=== PATIENT | female | born 1950 | race Caucasian/White ===

== ENCOUNTER 2018-02-09 20:36 | Inpatient (IN) | payer MEDICARE, OTHER ==
[2018-02-09] MEDS ORDERED: ASPIRIN 81 MG PO STA (21:15)
[2018-02-09] MEDS ORDERED: NITROGLYCERIN OINT 1 INCH/GM PACKET TOPICAL STA (21:15)
--- NOTE | 2018-02-09 21:22 | ED ---
Chest Pain HPI - General Chief Complaint: Chest Pain Stated Complaint: jc Time Seen by Provider: 02/09/18 21:07 Source: patient, EMS Mode of arrival: EMS Limitations: no limitations - History of Present Illness Initial Comments: This 67-year-old white female presents with a complaint of some midsternal chest pressure, shortness breath, and palpitations. She states that she initially started with the palpitations about one week ago. They became more severe 3 days ago. The chest pain and dyspnea came on today. She states that she was diaphoretic at one point. The palpitations are resolved currently. The shortness of breath is worse with any exertion. She denies any leg pain or swelling. She denies any history DVT or PE. She does have a cardiac history with previous CABG 20 years ago. Her last stress test was at least 6 years ago. She is not aware of ever having heart catheterization anytime recently. She has had a slight cough but no fevers. She denies any other complaints or modifying factors. - Related Data Home Medications Medication Instructions Recorded Confirmed ALPRAZolam [Xanax] 0.5 mg PO HS PRN 02/09/18 02/09/18 Atenolol [Tenormin] 25 mg PO DAILY 02/09/18 02/09/18 Atorvastatin [Lipitor] 20 mg PO DAILY 02/09/18 02/09/18 Cranberry Fruit Concentrate 450 mg PO DAILY 02/09/18 02/09/18 [Cranberry] Ezetimibe [Zetia] 10 mg PO DAILY 02/09/18 02/09/18 FLUoxetine HCL [PROzac] 20 mg PO DAILY 02/09/18 02/09/18 Multivitamins, Thera [Multivitamin 1 tab PO DAILY 02/09/18 02/09/18 (formulary)] Olmesartan/Hydrochlorothiazide 1 tab PO DAILY 02/09/18 02/09/18 [Benicar Hct 40-12.5 mg Tablet] Zolpidem [Ambien] 10 mg PO HS PRN 02/09/18 02/09/18 Allergies Allergy/AdvReac Type Severity Reaction Status Date / Time No Known Allergies Allergy Verified 02/09/18 21:59 Review of Systems ROS Statement: Those systems with pertinent positive or pertinent negative responses have been documented in the HPI. ROS Other: All systems not noted in ROS Statement are negative. Past Medical History Past Medical History: No Reported History History of Any Multi-Drug Resistant Organisms: None Reported Past Surgical History: No Surgical Hx Reported Past Psychological History: No Psychological Hx Reported Smoking Status: Never smoker Past Alcohol Use History: None Reported Past Drug Use History: None Reported General Exam - General Exam Comments Initial Comments: GENERAL: The patient is well nourished and well hydrated. VITAL SIGNS: Heart rate, blood pressure, respiratory rate reviewed as recorded in nurse's notes. EYES: Pupils are round and reactive. Extraocular movements are intact. No conjunctival / lid redness or swelling. ENT: No external evidence of injury, swelling, or ecchymosis. Airway is patent. Throat is clear. NECK: Nontender. No swelling or evidence of injury. No subcutaneous emphysema. Trachea is midline. No thyroid mass. HEART: Regular rate and rhythm. Good peripheral pulses. LUNGS/CHEST: Breath sounds clear and equal bilaterally. No rales, rhonchi, or wheezes. No ecchymosis, subcutaneous emphysema, or tenderness. ABDOMEN: Abdomen soft without tenderness. No palpable masses or organomegaly. No peritoneal signs. No abdominal wall swelling or ecchymosis. EXTREMITIES: No extremity tenderness. Normal muscle tone and function. No thoracolumbar tenderness. NEUROLOGIC: Sensation is grossly intact. Cranial nerve exam reveals face is symmetrical, tongue is midline, speech is clear. SKIN: No abrasions or ecchymosis is noted. No induration or masses noted. PSYCHIATRIC: Alert and oriented. Appropriate behavior and judgment. Limitations: no limitations Course Vital Signs 02/09/18 21:00 Temperature 97.8 F Pulse Rate 74 Respiratory 18 Rate Blood Pressure 149/66 O2 Sat by Pulse 92 L Oximetry Chest Pain MDM - MDM The patient was seen and examined. All diagnostics were reviewed. An IV is started and she is placed on a heart monitor. No ectopy is identified. The EKG shows a normal sinus rhythm at a rate of 69. There is some flattened T waves but no ST elevation. The MD intervals 1:30, QRS duration is 88, and the QTc interval is 317. The patient does receive aspirin as well as Nitropaste. The chest x-ray shows evidence of atelectasis of the left upper lobe. A computed tomography scan was therefore done and this does show a 4 cm 4 cm mass in the left lung with suspicion of being a primary malignancy. The atelectasis is noted as well. There is no evidence of pulmonary embolism. The laboratories unremarkable. The patient was informed of these findings and all questions were answered. She is somewhat anxious afterwards and requests something for her anxiety. She is given 1 mg of Ativan IV. The case is discussed with Dr. Santillan and he is agreeable with admission with Dr. Pressley to consult. Disposition Clinical Impression: Chest pain, Dyspnea, Hypoxia, Palpitations, Hypertension, Pulmonary mass, Atelectasis of left lung Disposition: ADMITTED IP TO THIS HOSP Condition: Fair Is patient prescribed a controlled substance at d/c from ED?: No Time of Disposition: 00:11 Decision Date: 02/10/18 Decision Time: 00:11
[2018-02-09 21:35] LABS: Basophils % (A) 0 %; Eosinophils # (A) 0.5 k/uL (0-0.7); Eosinophils % (A) 5 %; HCT 42.4 % (34.0-46.0); HGB 13.9 gm/dL (11.4-16.0); Lymphocytes % (A) 20 %; MCH 29.2 pg (25.0-35.0); MCHC 32.7 g/dL (31.0-37.0); MCV 89.3 fL (80.0-100.0); Mean Platelet Volume 7.9; Monocytes # (A) 0.5 k/uL (0-1.0); Monocytes % (A) 6 %; Neutrophils # (A) 6.6 k/uL (1.3-7.7); Neutrophils % (A) 67 %; Platelet Count 222 k/uL (150-450); RBC 4.74 m/uL (3.80-5.40); RDW 13.6 % (11.5-15.5); WBC 9.8 k/uL (3.8-10.6)
[2018-02-09 21:44] LABS: ALT 44 U/L (9-52); AST 33 U/L (14-36); Albumin 4.1 g/dL (3.5-5.0); Alkaline Phosphatase 119 U/L (38-126); Anion Gap 13 mmol/L; Blood Urea Nitrogen 11 mg/dL (7-17); Calcium 9.2 mg/dL (8.4-10.2); Carbon Dioxide 23 mmol/L (22-30); Chloride 105 mmol/L (98-107); Glucose 104 mg/dL (74-99); Sodium 141 mmol/L (137-145); Total Bilirubin 0.3 mg/dL (0.2-1.3); Total Protein 7.2 g/dL (6.3-8.2)
[2018-02-09 21:50] LABS: D-Dimer 0.56 mg/L FEU (<0.60); INR 1.1 (<1.2); Prothrombin Time 10.7 sec (9.0-12.0)
[2018-02-09 21:53] LABS: Creatine Kinase 74 U/L (30-135)
--- NOTE | 2018-02-09 21:55 | XR ---
EXAMINATION TYPE: XR chest 2V DATE OF EXAM: 02/09/2018 COMPARISON: 07/12/2013 HISTORY: Chest pain TECHNIQUE: Frontal and lateral views of the chest are obtained. FINDINGS: Heart and mediastinum are shifted to the left side. There are sternal wires. The lungs fie lds appear clear of airspace consolidation. There is slight elevation of the left diaphragm. IMPRESSION: There is significant volume loss in the left hemithorax that is a change compared to old exam. This is consistent with significant atelectasis. This could be complete atelectasis of the lef t upper lobe. Follow-up is recommended.
[2018-02-09 22:06] LABS: Creatine Kinase MB 0.6 ng/mL (0.0-2.4); Troponin I <0.012 ng/mL (0.000-0.034)
[2018-02-09] MEDS ORDERED: RX INFO: IV CONTRAST WAS GIVEN 1 EACH MISC MISCELLANE PRN (22:23)
--- NOTE | 2018-02-09 23:22 | CT ---
EXAMINATION TYPE: CT angio chest DATE OF EXAM: 02/09/2018 10:51 PM COMPARISON: NONE HISTORY: Chest pain and SOB CT DLP: 434.9 mGycm Automated exposure control for dose reduction was used. CONTRAST: CTA scan of the thorax is performed with IV Contrast, patient injected with 75 mL of Isovue 370, pulm onary embolism protocol. There are 3-D post processed images.. FINDINGS: Heart and mediastinum are shifted to the left side. There is complete atelectasis of the left upper l obe. There is mass at the left pulmonary hilum with apparent complete occlusion of the distal left ma instem bronchus. There is a 4 x 4 cm masslike area of density at the left pulmonary hilum with encase ment of the left pulmonary artery. I see no filling defects in the pulmonary arteries. There are para tracheal lymph nodes and measure up to 9 mm. There is no pericardial effusion. There is no pleural ef fusion. I see no bony destructive process. IMPRESSION: NO EVIDENCE OF PULMONARY EMBOLISM. COMPLETE ATELECTASIS OF THE LEFT UPPER LOBE WITH MASS AT THE LEFT PULMONARY HILUM SUGGESTIVE OF PRIMA RY MALIGNANCY. OCCLUSION OF THE LEFT MAINSTEM BRONCHUS.
[2018-02-10] MEDS ORDERED: LORazepam 2 MG/ML INJ IV STA (00:05)
[2018-02-10] MEDS ORDERED: IPRATROPIUM-ALBUTEROL 3 ML NEB INHALATION STA (00:12)
[2018-02-10] MEDS ORDERED: ONDANSETRON 4 MG/2 ML VIAL IVP PRN (00:13)
[2018-02-10] MEDS ORDERED: NALOXONE 0.4 MG/ML 1 ML VIAL IV PRN (00:13)
[2018-02-10] MEDS ORDERED: traMADol 50 MG TAB PO PRN (00:13)
[2018-02-10] MEDS ORDERED: ALPRAZolam 0.5 MG TAB PO PRN (00:18)
[2018-02-10 01:26] VITALS: BMI 29.9
[2018-02-10] MEDS: ZOLPIDEM 10 MG TAB PO PRN (01:49)
[2018-02-10] MEDS: IPRATROPIUM-ALBUTEROL 3 ML NEB INHALATION SCH ×4 (07:15→19:56)
[2018-02-10 08:15] LABS: Appearance,Urine Cloudy (Clear); Bacteria,Urine Rare /hpf; Bilirubin,Urine Negative (Negative); Blood,Urine Negative (Negative); Color,Urine Yellow; Glucose,Urine (UA) Negative (Negative); Ketones,Urine Negative (Negative); Leukocyte Esterase,Urine Large (Negative); Nitrite,Urine Negative (Negative); PH, Urine 6.5 (5.0-8.0); Protein,Urine Trace (Negative); RBC,Urine 1 /hpf (0-5); Squamous Epithelial Cell,Urine 1 /hpf (0-4); Urobilinogen,Urine <2.0 mg/dL (<2.0); WBC,Urine 51 /hpf (0-5)
[2018-02-10] MEDS ORDERED: NON-FORMULARY DRUG (Cranberry Fruit Concentrate [Cranberry] 450 MG) PO SCH (09:00)
[2018-02-10] MEDS ORDERED: PANTOPRAZOLE 40 MG/10 ML VIAL IV SCH (09:00)
[2018-02-10] MEDS ORDERED: ASPIRIN 325 MG TAB PO SCH (09:00)
[2018-02-10] MEDS ORDERED: ENOXAPARIN 40 MG/0.4 ML SYRINGE SQ SCH (09:00)
[2018-02-10] MEDS: ACETAMINOPHEN TAB 325 MG TAB PO PRN (09:11)
[2018-02-10] MEDS: LOSARTAN 50 MG TAB PO SCH ×2 (09:28→09:31)
[2018-02-10] MEDS: NITROGLYCERIN OINT 1 INCH/GM PACKET TOPICAL SCH ×2 (09:30→13:04)
[2018-02-10] MEDS: ATORVASTATIN 20 MG TAB PO SCH (09:31)
[2018-02-10] MEDS: MULTIVITAMINS, THERA 1 EACH TAB PO SCH (09:31)
[2018-02-10] MEDS: ATENOLOL 25 MG TAB PO SCH (09:31)
[2018-02-10] MEDS: FLUoxetine HCL 20 MG CAP PO SCH (09:31)
[2018-02-10] MEDS: LOSARTAN-HCTZ 50-12.5 MG 1 EACH TAB PO SCH (09:33)
[2018-02-10 09:53] LABS: Creatine Kinase MB 0.6 ng/mL (0.0-2.4); Troponin I 0.015 ng/mL (0.000-0.034)
[2018-02-10 10:17] LABS: Specific Gravity,Urine >1.050 (1.001-1.035)
--- NOTE | 2018-02-10 10:50 | P.CNPUL ---
History of Present Illness Consult date: 02/10/18 Reason for consult: dyspnea, chest pain, COPD, hypoxemia, lung mass, abnormal CXR/CT Chief complaint: Shortness of breath and chest discomfort History of present illness: Pulmonary consult dated 02/10/2018 Very pleasant 67-year-old ex-smoker presents with shortness of breath and chest discomfort. She had a chest x-ray which suggested a mass in the left chest and a CAT scan confirmed that. I was consulted for possible bronchoscopy and diagnostic procedure. The patient was a previous smoker smoked about 20 years at less than a pack a day. Quit many years ago. The patient came with complaints of shortness of breath on exertion and chest discomfort particularly left sided. The patient does have a history of a previous bypass grafting some 20 years ago. Her last stress test was 6 years ago. She had no fever or chills. Slight cough. No production of phlegm. Not coughing up any blood. No nausea vomiting or diarrhea. This has been going on for at least a week or so and has been worse over the last 3 days. The patient has a history of hypertension insomnia and anxiety hyperlipidemia and depression. Review of Systems A 12 point review of system is positive for nonproductive cough shortness of breath and left-sided chest discomfort. This been going on for about a week or so and last 3 days have been much worse. Past Medical History Past Medical History: No Reported History, Chest Pain / Angina, Hyperlipidemia, Hypertension History of Any Multi-Drug Resistant Organisms: None Reported Past Surgical History: Cholecystectomy, Coronary Bypass/CABG Additional Past Surgical History / Comment(s): triple bypass-1997 dr carrington Past Anesthesia/Blood Transfusion Reactions: No Reported Reaction Past Psychological History: No Psychological Hx Reported Smoking Status: Never smoker Past Alcohol Use History: None Reported Past Drug Use History: None Reported Medications and Allergies Home Medications Medication Instructions Recorded Confirmed Type ALPRAZolam [Xanax] 0.5 mg PO HS PRN 02/09/18 02/09/18 History Atenolol [Tenormin] 25 mg PO DAILY 02/09/18 02/09/18 History Atorvastatin [Lipitor] 20 mg PO DAILY 02/09/18 02/09/18 History Cranberry Fruit Concentrate 450 mg PO DAILY 02/09/18 02/09/18 History [Cranberry] Ezetimibe [Zetia] 10 mg PO DAILY 02/09/18 02/09/18 History FLUoxetine HCL [PROzac] 20 mg PO DAILY 02/09/18 02/09/18 History Multivitamins, Thera [Multivitamin 1 tab PO DAILY 02/09/18 02/09/18 History (formulary)] Olmesartan/Hydrochlorothiazide 1 tab PO DAILY 02/09/18 02/09/18 History [Benicar Hct 40-12.5 mg Tablet] Zolpidem [Ambien] 10 mg PO HS PRN 02/09/18 02/09/18 History Allergies Allergy/AdvReac Type Severity Reaction Status Date / Time No Known Allergies Allergy Verified 02/09/18 21:59 Physical Exam Osteopathic Statement: *. No significant issues noted on an osteopathic structural exam other than those noted in the History and Physical/Consult. Vitals: Vital Signs Temp Pulse Pulse Resp BP BP Pulse Ox 02/10/18 07:30 81 02/10/18 07:15 81 16 02/10/18 06:24 98 F 78 20 103/83 93 L 02/10/18 00:41 60 16 142/60 94 L 02/10/18 00:34 73 02/10/18 00:32 97.9 F 74 18 144/71 91 L 02/10/18 00:23 68 02/09/18 23:12 64 17 169/64 95 02/09/18 21:00 97.8 F 74 18 149/66 92 L Intake and Output 02/09/18 02/10/18 02/10/18 22:59 06:59 14:59 Other: Voiding Method Toilet # Voids 1 Weight 81.647 kg 81.647 kg No acute distress, oriented 3. HEENT examination is grossly unremarkable. Mucous membranes are moist. No oral lesions. Neck supple. Full range of motion. No adenopathy thyromegaly or neck vein distention. Cardiovascular examination reveals regular rhythm rate. S1-S2 normal. No S3 or S4. No discernible murmur noted. Lungs reveal diminished breath sounds in the left chest. There is some central wheezing particularly on the left side of the chest to the left of midline. A few scattered rhonchi are noted. No crackles. Abdomen soft bowel sounds are heard. No masses or tenderness. Extremities are intact. No cyanosis clubbing or edema. Skin is without rash or lesion. Neurologic examination is brief but nonfocal. Results - Laboratory Findings CBC and BMP: 02/09/18 21:24 02/09/18 21:24 PT/INR, D-dimer PT 10.7 sec (9.0-12.0) 02/09/18 21:24 INR 1.1 (<1.2) 02/09/18 21:24 D-Dimer 0.56 mg/L FEU (<0.60) 02/09/18 21:24 Abnormal lab findings: Abnormal Labs 02/09/18 02/10/18 21:24 04:25 Glucose 104 H Urine Appearance Cloudy H Ur Specific [place] >1.050 H Urine Protein Trace H Ur Leukocyte Esterase Large H Urine WBC 51 H Urine Bacteria Rare H - Diagnostic Findings Chest x-ray: image reviewed CT scan - chest: image reviewed (Chest x-ray labs and medications are all reviewed.) Assessment and Plan Assessment: Assessment Shortness of breath and chest pain, likely related to the mass in the patient's left chest. Chest x-ray and CT are both abnormal and CT suggests a significant cut off sign in the distal left mainstem. I suspect there may be endobronchial tumor there which would be amenable to bronchoscopy and biopsy. Possible COPD Previous history of bypass grafting many years back History of hypertension History of hyperlipidemia Insomnia Anxiety/depression Previous history of tobacco use Plan: Plan dated 02/10/2018 The patient's medications labs and x-rays are reviewed. The patient be scheduled for bronchoscopy airway examination therapy lavage and BAL on . I suspect though be endobronchial tumor on bronchoscopy. A biopsy should be reasonably make at that time. Hopefully we'll get a diagnosis of that time as well. Additional recommendations and suggestions are forthcoming. Prognosis is poor. Time with Patient: Greater than 30
[2018-02-10] MEDS: cefTRIAXone IN SWFI 1,000 MG/10 ML SYRINGE IVP SCH (11:44)
[2018-02-10] MEDS: EZETIMIBE 10 MG TAB PO SCH (11:44)
--- NOTE | 2018-02-10 11:55 | P.HPIM ---
History of Present Illness H&P Date: 02/10/18 Chief Complaint: Worsening shortness of breath with lung mass This is a 67-year-old female with a known past medical history of coronary disease with previous CABG 20 years ago, hypertension, hyperlipidemia anxiety and depression. Patient presented to the hospital with complaints of chest pain shortness of breath and heart palpitations for the past 3 days. Prior to that over the last couple months patient had noticed to be short of breath with activity she also had a couple episodes of hemoptysis that now resolved. Yesterday patient's shortness of breath became very severe she thought she was going to pass out and she reports having severe heart palpitations. EMS was called and she was brought into the emergency room for further evaluation and treatment. EKG had shown normal sinus rhythm with nonspecific ST and T-wave changes. Chest x-ray shows significant volume loss in the left hemithorax they change compared to old exam. Then a computed tomography scan of the chest was ordered. PE was ruled out. CAT scan showed complete atelectasis of the left upper lobe with mass at the left pulmonary: Suggestive of a primary malignancy. Occlusion of the left mainstem bronchus. Pulmonary service has been consulted. They're planning to proceed with a bronchoscopy and biopsy on . Patient denies any fever chills or sweats. Denies any nausea or vomiting. Denies any bowel movement changes. She has been having some burning with urination urinalysis was checked and found have evidence of a UTI she's been started on Rocephin. Patient does report having a history of smoking she quit smoking about 20 years ago and reports that she smoked less than a pack a day. Review of Systems Please refer to HPI otherwise unremarkable Past Medical History Past Medical History: No Reported History, Chest Pain / Angina, Hyperlipidemia, Hypertension History of Any Multi-Drug Resistant Organisms: None Reported Past Surgical History: Cholecystectomy, Coronary Bypass/CABG Additional Past Surgical History / Comment(s): triple bypass-1997 dr carrington Past Anesthesia/Blood Transfusion Reactions: No Reported Reaction Past Psychological History: No Psychological Hx Reported Smoking Status: Never smoker Past Alcohol Use History: None Reported Past Drug Use History: None Reported Medications and Allergies Home Medications Medication Instructions Recorded Confirmed Type ALPRAZolam [Xanax] 0.5 mg PO HS PRN 02/09/18 02/09/18 History Atenolol [Tenormin] 25 mg PO DAILY 02/09/18 02/09/18 History Atorvastatin [Lipitor] 20 mg PO DAILY 02/09/18 02/09/18 History Cranberry Fruit Concentrate 450 mg PO DAILY 02/09/18 02/09/18 History [Cranberry] Ezetimibe [Zetia] 10 mg PO DAILY 02/09/18 02/09/18 History FLUoxetine HCL [PROzac] 20 mg PO DAILY 02/09/18 02/09/18 History Multivitamins, Thera [Multivitamin 1 tab PO DAILY 02/09/18 02/09/18 History (formulary)] Olmesartan/Hydrochlorothiazide 1 tab PO DAILY 02/09/18 02/09/18 History [Benicar Hct 40-12.5 mg Tablet] Zolpidem [Ambien] 10 mg PO HS PRN 02/09/18 02/09/18 History Allergies Allergy/AdvReac Type Severity Reaction Status Date / Time No Known Allergies Allergy Verified 02/09/18 21:59 Physical Exam Vitals: Vital Signs Temp Pulse Pulse Resp BP BP Pulse Ox 02/10/18 11:13 78 16 02/10/18 11:03 76 16 93 L 02/10/18 07:30 81 02/10/18 07:15 81 16 02/10/18 06:24 98 F 78 20 103/83 93 L 02/10/18 00:41 60 16 142/60 94 L 02/10/18 00:34 73 02/10/18 00:32 97.9 F 74 18 144/71 91 L 02/10/18 00:23 68 02/09/18 23:12 64 17 169/64 95 02/09/18 21:00 97.8 F 74 18 149/66 92 L Intake and Output 02/09/18 02/10/18 02/10/18 22:59 06:59 14:59 Other: Voiding Method Toilet Toilet # Voids 1 Weight 81.647 kg 81.647 kg Head normocephalic Neck supple Lungs diminished on the left with audible expiratory wheeze when talking Heart regular rate and rhythm S1-S2, no rub or gallop Abdomen is soft nontender nondistended positive bowel sounds no hepatosplenomegaly Extremities no edema Neuro alert and orientated to 3 Results CBC & Chem 7: 02/09/18 21:24 02/09/18 21:24 Labs: Abnormal Lab Results - Last 24 Hours (Table) 02/09/18 02/10/18 Range/Units 21:24 04:25 Glucose 104 H (74-99) mg/dL Urine Appearance Cloudy H (Clear) Ur Specific [place] >1.050 H (1.001-1.035) Urine Protein Trace H (Negative) Ur Leukocyte Esterase Large H (Negative) Urine WBC 51 H (0-5) /hpf Urine Bacteria Rare H (None) /hpf Microbiology - Last 24 Hours (Table) 02/10/18 04:25 Urine Culture - Preliminary Urine,Voided Thrombosis Risk Factor Assmnt - Choose All That Apply Any of the Below Risk Factors Present?: Yes Each Risk Factor Represents 2 Points: Age 61-74 years Thrombosis Risk Factor Assessment Total Risk Factor Score: 2 Thrombosis Risk Factor Assessment Level: Low Risk Assessment and Plan Assessment: 1. Shortness of breath with chest pain likely related to the mass in the patient's left chest. Computed tomography scan of the chest, no evidence of PE but complete atelectasis of the left upper lobe with mass at the left pulmonary home suggestive of a primary malignancy. Occlusion of the left mainstem bronchus. Patient seen by pulmonary service to planning on bronchoscopy with biopsy on . Troponins negative 2 2. Previous history of tobacco use several years ago 3. History of coronary artery disease with previous narrative bypass grafting 20 years ago 4. Essential hypertension: Blood pressure stable resume home medications 5. Hyperlipidemia 6. Generalized anxiety disorder and depression 7. UTI: Patient started on Rocephin 1 g daily. Awaiting urine culture GI prophylaxis Protonix and DVT prophylaxis Lovenox Time with Patient: Greater than 30 (Greater than 60% of the total time spent in counseling and coordination of care.I performed an examination of the patient and discussed their management with the physician Ios Architect. I have reviewed the Physician Ios Architect's notes and agree with the documented findings and plan of care)
[2018-02-10] MEDS: ALPRAZolam 0.5 MG TAB PO SCH ×2 (13:39→22:38)
[2018-02-10 14:50] LABS: Creatine Kinase 74 U/L (30-135)
[2018-02-10 15:03] LABS: Creatine Kinase MB 0.7 ng/mL (0.0-2.4); Troponin I <0.012 ng/mL (0.000-0.034)
[2018-02-10 20:57] LABS: Creatine Kinase 79 U/L (30-135)
[2018-02-10 21:08] LABS: Creatine Kinase MB 0.6 ng/mL (0.0-2.4); Troponin I <0.012 ng/mL (0.000-0.034)
[2018-02-10] MEDS: MELATONIN 5 MG TABLET PO SCH (22:37)
[2018-02-11] MEDS: ZOLPIDEM 10 MG TAB PO PRN ×2 (02:31→23:24)
[2018-02-11] MEDS: IPRATROPIUM-ALBUTEROL 3 ML NEB INHALATION SCH ×4 (07:25→19:26)
[2018-02-11 08:03] LABS: Basophils # (A) 0.1 k/uL (0-0.2); Basophils % (A) 1 %; Eosinophils # (A) 0.4 k/uL (0-0.7); Eosinophils % (A) 4 %; HCT 40.2 % (34.0-46.0); HGB 12.9 gm/dL (11.4-16.0); Lymphocytes # (A) 2.2 k/uL (1.0-4.8); Lymphocytes % (A) 24 %; MCH 29.1 pg (25.0-35.0); MCV 90.8 fL (80.0-100.0); Mean Platelet Volume 8.2; Monocytes # (A) 0.6 k/uL (0-1.0); Monocytes % (A) 7 %; Neutrophils # (A) 5.9 k/uL (1.3-7.7); Neutrophils % (A) 64 %; Platelet Count 221 k/uL (150-450); RBC 4.43 m/uL (3.80-5.40); RDW 13.6 % (11.5-15.5); WBC 9.3 k/uL (3.8-10.6)
[2018-02-11 08:10] LABS: ALT 37 U/L (9-52); AST 28 U/L (14-36); Albumin 3.7 g/dL (3.5-5.0); Alkaline Phosphatase 99 U/L (38-126); Anion Gap 14 mmol/L; Blood Urea Nitrogen 12 mg/dL (7-17); Carbon Dioxide 24 mmol/L (22-30); Chloride 103 mmol/L (98-107); Glucose 97 mg/dL (74-99); Potassium 4.1 mmol/L (3.5-5.1); Sodium 141 mmol/L (137-145); Total Bilirubin 0.5 mg/dL (0.2-1.3); Total Protein 6.7 g/dL (6.3-8.2)
[2018-02-11] MEDS: ALPRAZolam 0.5 MG TAB PO SCH ×3 (08:19→17:24)
[2018-02-11] MEDS: EZETIMIBE 10 MG TAB PO SCH (08:21)
[2018-02-11] MEDS: LOSARTAN 50 MG TAB PO SCH (08:21)
[2018-02-11] MEDS: PANTOPRAZOLE 40 MG TABLET PO SCH (08:22)
[2018-02-11] MEDS: LOSARTAN-HCTZ 50-12.5 MG 1 EACH TAB PO SCH (08:22)
[2018-02-11] MEDS: MULTIVITAMINS, THERA 1 EACH TAB PO SCH (08:22)
[2018-02-11] MEDS: ATENOLOL 25 MG TAB PO SCH (08:22)
[2018-02-11] MEDS: FLUoxetine HCL 20 MG CAP PO SCH (08:22)
[2018-02-11] MEDS: cefTRIAXone IN SWFI 1,000 MG/10 ML SYRINGE IVP SCH (08:28)
[2018-02-11] MEDS ORDERED: ENOXAPARIN 40 MG/0.4 ML SYRINGE SQ SCH (09:00)
[2018-02-11] MEDS: ATORVASTATIN 20 MG TAB PO SCH (09:48)
--- NOTE | 2018-02-11 11:38 | P.PN ---
Subjective Progress Note Date: 02/11/18 This is a 67-year-old female with a known past medical history of coronary disease with previous CABG 20 years ago, hypertension, hyperlipidemia anxiety and depression. Patient presented to the hospital with complaints of chest pain shortness of breath and heart palpitations for the past 3 days. Prior to that over the last couple months patient had noticed to be short of breath with activity she also had a couple episodes of hemoptysis that now resolved. Yesterday patient's shortness of breath became very severe she thought she was going to pass out and she reports having severe heart palpitations. EMS was called and she was brought into the emergency room for further evaluation and treatment. EKG had shown normal sinus rhythm with nonspecific ST and T-wave changes. Chest x-ray shows significant volume loss in the left hemithorax they change compared to old exam. Then a computed tomography scan of the chest was ordered. PE was ruled out. CAT scan showed complete atelectasis of the left upper lobe with mass at the left pulmonary: Suggestive of a primary malignancy. Occlusion of the left mainstem bronchus. Pulmonary service has been consulted. They're planning to proceed with a bronchoscopy and biopsy on . Patient denies any fever chills or sweats. Denies any nausea or vomiting. Denies any bowel movement changes. She has been having some burning with urination urinalysis was checked and found have evidence of a UTI she's been started on Rocephin. Patient does report having a history of smoking she quit smoking about 20 years ago and reports that she smoked less than a pack a day. On 02/11/2018 patient is alert and oriented 3 she is feeling better than yesterday she is less emotional she is taking Xanax as needed, her shortness of breath has improved, she denies any chest pain no nausea or vomiting no abdominal pain and no urinary symptoms Objective - Vital Signs Vital signs: Vital Signs Temp 97.5 F L 02/11/18 06:17 Pulse 82 02/11/18 11:10 Resp 18 02/11/18 06:17 BP 145/61 02/11/18 06:17 Pulse Ox 95 02/11/18 07:25 Intake & Output 02/10/18 02/11/18 02/11/18 18:59 06:59 18:59 Intake Total 500 Balance 500 Intake: Oral 500 Other: Voiding Method Toilet Toilet Toilet # Voids 2 1 - Exam Head normocephalic and atraumatic Neck supple no JVD Lungs diminished on the left with audible expiratory wheeze when talking Heart regular rate and rhythm S1-S2, no rub or gallop Abdomen is soft nontender nondistended positive bowel sounds no hepatosplenomegaly Extremities no edema Neuro alert and orientated to 3 - Labs CBC & Chem 7: 02/11/18 07:09 02/11/18 07:09 Labs: Microbiology - Last 24 Hours (Table) 02/09/18 21:24 Blood Culture - Preliminary Blood No Growth after 24 hours 02/10/18 04:25 Urine Culture - Preliminary Urine,Voided Assessment and Plan Plan: 1. Shortness of breath with chest pain likely related to the mass in the patient's left chest. Computed tomography scan of the chest, no evidence of PE but complete atelectasis of the left upper lobe with mass at the left pulmonary home suggestive of a primary malignancy. Occlusion of the left mainstem bronchus. Patient seen by pulmonary service to planning on bronchoscopy with biopsy on . Troponins negative 2 2. Previous history of tobacco use several years ago 3. History of coronary artery disease with previous narrative bypass grafting 20 years ago 4. Essential hypertension: Blood pressure stable resume home medications 5. Hyperlipidemia 6. Generalized anxiety disorder and depression, started on Xanax and melatonin 7. UTI: Patient started on Rocephin 1 g daily. Awaiting urine culture GI prophylaxis Protonix and DVT prophylaxis Lovenox, Lovenox discontinued in anticipation of bronchoscopy tomorrow
--- NOTE | 2018-02-11 12:23 | P.PN ---
Subjective Progress Note Date: 02/11/18 Principal diagnosis: Abnormal chest x-ray, lung mass Progress note dated 02/11/2018 This a very pleasant 67-year-old female who I saw yesterday in consultation. She came into the hospital with complaints of shortness of breath and chest discomfort. Chest x-ray suggested a mass and a computed tomography scan confirmed that. She is scheduled for bronchoscopy tomorrow. She smoked for about 20 years of about a pack a day or so. She quit many years ago. She has a history of hypertension and insomnia anxiety hyperlipidemia and depression. I was able to talk to the patient today to remind her about the procedure. I was able to meet a friend and her . I suspect lung cancer based on the computed tomography scan. Objective - Vital Signs Vital signs: Vital Signs Temp 97.5 F L 02/11/18 06:17 Pulse 82 02/11/18 11:10 Resp 18 02/11/18 06:17 BP 145/61 02/11/18 06:17 Pulse Ox 95 02/11/18 07:25 Intake & Output 02/10/18 02/11/18 02/11/18 18:59 06:59 18:59 Intake Total 500 Balance 500 Intake: Oral 500 Other: Voiding Method Toilet Toilet Toilet # Voids 2 1 - Exam No acute distress, oriented 3. HEENT examination is grossly unremarkable. Mucous membranes are moist. No oral lesions. Neck supple. Full range of motion. No adenopathy thyromegaly or neck vein distention. Cardiovascular examination reveals regular rhythm rate. S1-S2 normal. No S3 or S4. No discernible murmur noted. Lungs reveal diminished breath sounds in the left chest. There is some central wheezing particularly on the left side of the chest to the left of midline. A few scattered rhonchi are noted. No crackles. Breath sounds are bit improved compared to yesterday. Abdomen soft bowel sounds are heard. No masses or tenderness. Extremities are intact. No cyanosis clubbing or edema. Skin is without rash or lesion. Neurologic examination is brief but nonfocal. - Labs CBC & Chem 7: 02/11/18 07:09 02/11/18 07:09 Labs: Microbiology - Last 24 Hours (Table) 02/09/18 21:24 Blood Culture - Preliminary Blood No Growth after 24 hours 05/22/18 04:25 Urine Culture - Preliminary Urine,Voided Assessment and Plan Assessment: Assessment Shortness of breath and chest pain, likely related to the mass in the patient's left chest. Chest x-ray and CT are both abnormal and CT suggests a significant cut off sign in the distal left mainstem. I suspect there may be endobronchial tumor there which would be amenable to bronchoscopy and biopsy. Possible COPD Previous history of bypass grafting many years back History of hypertension History of hyperlipidemia Insomnia Anxiety/depression Previous history of tobacco use Plan: Plan dated 02/10/2018 The patient's medications labs and x-rays are reviewed. The patient be scheduled for bronchoscopy airway examination therapy lavage and BAL on . I suspect though be endobronchial tumor on bronchoscopy. A biopsy should be reasonably make at that time. Hopefully we'll get a diagnosis of that time as well. Additional recommendations and suggestions are forthcoming. Prognosis is poor. Plan dated 02/11/2018 The patient is ready for the bronchoscopy tomorrow. I did have a chance to meet with her and a family friend. They understand that there may be a mass in the chest. This mass may returning officer to be lung cancer. I'm very suspicious at this time. Additional recommendations and suggestions are forthcoming. Currently her breathing is a bit better. Medications labs and x- rays are all reviewed. White count 9.3 on 12.9 platelet count normal comprehensive metabolic profile is completely normal. Time with Patient: Less than 30
[2018-02-11] MEDS: MELATONIN 5 MG TABLET PO SCH (21:24)
[2018-02-11] MEDS: FLUTICASONE 50MCG/SPRAY NASAL 16GM EA NOSTRIL SCH (23:10)
[2018-02-12] MEDS: IPRATROPIUM-ALBUTEROL 3 ML NEB INHALATION SCH ×4 (05:39→19:22)
[2018-02-12] MEDS: LACTATED RINGERS 1,000 ML IV SCH (05:52)
[2018-02-12] MEDS: FLUTICASONE 50MCG/SPRAY NASAL 16GM EA NOSTRIL SCH (05:53)
[2018-02-12] MEDS: ALPRAZolam 0.5 MG TAB PO SCH ×3 (06:02→21:38)
[2018-02-12 08:05] LABS: ALT 39 U/L (9-52); AST 28 U/L (14-36); Albumin 3.7 g/dL (3.5-5.0); Alkaline Phosphatase 113 U/L (38-126); Anion Gap 11 mmol/L; Blood Urea Nitrogen 10 mg/dL (7-17); Calcium 9.1 mg/dL (8.4-10.2); Carbon Dioxide 25 mmol/L (22-30); Chloride 105 mmol/L (98-107); Glucose 106 mg/dL (74-99); Potassium 3.8 mmol/L (3.5-5.1); Sodium 141 mmol/L (137-145); Total Bilirubin 0.5 mg/dL (0.2-1.3); Total Protein 6.7 g/dL (6.3-8.2)
[2018-02-12 08:10] LABS: Basophils # (A) 0.1 k/uL (0-0.2); Basophils % (A) 1 %; Eosinophils # (A) 0.4 k/uL (0-0.7); Eosinophils % (A) 5 %; HGB 13.2 gm/dL (11.4-16.0); Lymphocytes # (A) 1.8 k/uL (1.0-4.8); Lymphocytes % (A) 18 %; MCH 29.9 pg (25.0-35.0); MCHC 33.1 g/dL (31.0-37.0); MCV 90.4 fL (80.0-100.0); Mean Platelet Volume 7.4; Monocytes # (A) 0.5 k/uL (0-1.0); Monocytes % (A) 6 %; Neutrophils # (A) 6.7 k/uL (1.3-7.7); Neutrophils % (A) 69 %; Platelet Count 212 k/uL (150-450); RBC 4.43 m/uL (3.80-5.40); RDW 13.7 % (11.5-15.5); WBC 9.6 k/uL (3.8-10.6)
[2018-02-12] MEDS: cefTRIAXone IN SWFI 1,000 MG/10 ML SYRINGE IVP SCH (08:16)
[2018-02-12] MEDS: ATENOLOL 25 MG TAB PO SCH (08:28)
[2018-02-12] MEDS: PANTOPRAZOLE 40 MG TABLET PO SCH (08:28)
[2018-02-12] MEDS: FLUoxetine HCL 20 MG CAP PO SCH (08:29)
[2018-02-12] MEDS: LOSARTAN-HCTZ 50-12.5 MG 1 EACH TAB PO SCH (08:29)
[2018-02-12] MEDS: EZETIMIBE 10 MG TAB PO SCH (08:29)
[2018-02-12] MEDS: ATORVASTATIN 20 MG TAB PO SCH (08:29)
[2018-02-12] MEDS ORDERED: KETAMINE 10 MG/ML 20 ML VIAL ONE (10:57)
[2018-02-12] MEDS ORDERED: PROPOFOL 10 MG/ML 20 ML VIAL IV ONE (10:57)
[2018-02-12] MEDS ORDERED: MIDAZOLAM 2 MG/2 ML VIAL ONE (10:57)
[2018-02-12] MEDS ORDERED: LIDOCAINE 1% INJ 10MG/ML (20 ML MDV) ONE (10:57)
[2018-02-12] MEDS ORDERED: SODIUM CHLORIDE 0.9% 1,000 ML IV ONE (10:58)
--- NOTE | 2018-02-12 11:10 | P.PN ---
Subjective Progress Note Date: 02/12/18 Principal diagnosis: Abnormal chest x-ray, lung mass Progress note dated 02/11/2018 This a very pleasant 67-year-old female who I saw yesterday in consultation. She came into the hospital with complaints of shortness of breath and chest discomfort. Chest x-ray suggested a mass and a computed tomography scan confirmed that. She is scheduled for bronchoscopy tomorrow. She smoked for about 20 years of about a pack a day or so. She quit many years ago. She has a history of hypertension and insomnia anxiety hyperlipidemia and depression. I was able to talk to the patient today to remind her about the procedure. I was able to meet a friend and her . I suspect lung cancer based on the computed tomography scan. Progress note dated 02/12/2018 Patient was seen and examined again today, she was scheduled for a bronchoscopy with biopsy of the left lung mass, and this is suspicious for lung cancer based on her computed tomography scan results. Overnight patient did not have any acute complaints. Vital signs remained stable, she is afebrile, patient is currently on 3 L per nasal cannula with O2 sat of 95%, hemodynamically stable, lung sounds are positive for some scattered rhonchi and diminished breath sounds on the left, clear on the right. Urine culture was positive for group D enterococcus, final sensitivity is pending, patient is afebrile. She denies any urinary complaints, there is no leukocytosis on today's blood work, WBCs 9.6 , electrolyte and renal profile is within normal limits. We will proceed with bronchoscopy and biopsy of the left lung mass this morning. Objective - Vital Signs Vital signs: Vital Signs Temp 97.7 F 02/12/18 05:30 Pulse 86 02/12/18 08:29 Resp 18 02/12/18 08:14 BP 109/55 02/12/18 08:29 Pulse Ox 95 02/12/18 08:14 Intake & Output 02/11/18 02/12/18 02/12/18 18:59 06:59 18:59 Intake Total 840 Balance 840 Intake: Oral 840 Other: Voiding Method Toilet Toilet Toilet # Voids 3 1 - Exam No acute distress, oriented 3. HEENT examination is grossly unremarkable. Mucous membranes are moist. No oral lesions. Neck supple. Full range of motion. No adenopathy thyromegaly or neck vein distention. Cardiovascular examination reveals regular rhythm rate. S1-S2 normal. No S3 or S4. No discernible murmur noted. Lungs reveal diminished breath sounds in the left chest. There is some central wheezing particularly on the left side of the chest to the left of midline. A few scattered rhonchi are noted. No crackles. Breath sounds are bit improved compared to yesterday. Abdomen soft bowel sounds are heard. No masses or tenderness. Extremities are intact. No cyanosis clubbing or edema. Skin is without rash or lesion. Neurologic examination is brief but nonfocal. - Labs CBC & Chem 7: 02/12/18 07:25 02/12/18 07:25 Labs: Abnormal Lab Results - Last 24 Hours (Table) 02/12/18 Range/Units 07:25 Glucose 106 H (74-99) mg/dL Microbiology - Last 24 Hours (Table) 02/09/18 21:24 Blood Culture - Preliminary Blood No Growth after 48 hours 02/10/18 04:25 Urine Culture - Preliminary Urine,Voided Group D Enterococcus Assessment and Plan Plan: Plan dated 02/10/2018 The patient's medications labs and x-rays are reviewed. The patient be scheduled for bronchoscopy airway examination therapy lavage and BAL on . I suspect though be endobronchial tumor on bronchoscopy. A biopsy should be reasonably make at that time. Hopefully we'll get a diagnosis of that time as well. Additional recommendations and suggestions are forthcoming. Prognosis is poor. Plan dated 02/11/2018 The patient is ready for the bronchoscopy tomorrow. I did have a chance to meet with her and a family friend. They understand that there may be a mass in the chest. 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 I'm very suspicious at this time. Additional recommendations and suggestions are forthcoming. Currently her breathing is a bit better. Medications labs and x- rays are all reviewed. White count 9.3 on 12.9 platelet count normal comprehensive metabolic profile is completely normal. Plan dated 02/12/2018 Proceed with bronchoscopy and biopsy of the left lung mass this morning. The lesion is highly suspicious for a lung cancer, risks and benefits of the procedure were explained to the patient's and her family, who wished to proceed at this time. Further recommendations will be based on the results of the biopsy, and her clinical status. Time with Patient: Less than 30
--- NOTE | 2018-02-12 12:08 | PCN ---
PROCEDURE NOTE PROCEDURE: Bronchoscopy, airway examination, therapeutic lavage, BAL, brushes, washes and biopsies all distal left mainstem. PREOPERATIVE DIAGNOSIS: Lung cancer. POSTOPERATIVE DIAGNOSIS: Lung cancer. MECHANICAL TECHNICAL SERVICE SPECIALIST: Dr. Crandall. PROCEDURE: There was informed consent. There was universal timeout. The nurse bias cutting machine operator provided general anesthesia and unconscious sedation. After the patient was adequately sedated and being fully monitored, the bronchoscope was inserted through the right nostril. It passed through the right nasopharynx into the oropharynx. The hypopharynx was identified and topicalized. The hypopharyngeal structures all appear normal. Anterior commissure, true cords, false cords, arytenoids, piriform sinuses, right and left vallecula and epiglottis all appeared normal. After topicalization, bronchoscope was pushed through the glottic opening into the trachea. Trachea was normal. Tracheal gab was sharp. The right side including the right upper lobe and its 3 segments, right middle lobe and its 2 segments, right lower lobe and its 5 segments were all normal. On the left side, after topicalization, the distal left mainstem revealed a large polypoid tumor. It was obstructing the distal left mainstem. I could not get past the tumor with the scope. At this point, biopsies, brushes and washes were done of this area. The lesion did bleed. Pictures were taken. The bronchoscope withdrawn after there was adequate hemostasis. The patient will be recovered. There was no immediate complication. MMODL / IJN: [id number] /
--- NOTE | 2018-02-12 13:56 | P.PN ---
Subjective Progress Note Date: 02/12/18 This is a 67-year-old female with a known past medical history of coronary disease with previous CABG 20 years ago, hypertension, hyperlipidemia anxiety and depression. Patient presented to the hospital with complaints of chest pain shortness of breath and heart palpitations for the past 3 days. Prior to that over the last couple months patient had noticed to be short of breath with activity she also had a couple episodes of hemoptysis that now resolved. Yesterday patient's shortness of breath became very severe she thought she was going to pass out and she reports having severe heart palpitations. EMS was called and she was brought into the emergency room for further evaluation and treatment. EKG had shown normal sinus rhythm with nonspecific ST and T-wave changes. Chest x-ray shows significant volume loss in the left hemithorax they change compared to old exam. Then a computed tomography scan of the chest was ordered. PE was ruled out. CAT scan showed complete atelectasis of the left upper lobe with mass at the left pulmonary: Suggestive of a primary malignancy. Occlusion of the left mainstem bronchus. Pulmonary service has been consulted. They're planning to proceed with a bronchoscopy and biopsy on . Patient denies any fever chills or sweats. Denies any nausea or vomiting. Denies any bowel movement changes. She has been having some burning with urination urinalysis was checked and found have evidence of a UTI she's been started on Rocephin. Patient does report having a history of smoking she quit smoking about 20 years ago and reports that she smoked less than a pack a day. On 02/11/2018 patient is alert and oriented 3 she is feeling better than yesterday she is less emotional she is taking Xanax as needed, her shortness of breath has improved, she denies any chest pain no nausea or vomiting no abdominal pain and no urinary symptoms 02/12/2018 patient underwent bronchoscopy today for lung mass. Biopsies obtained. Pulmonary service will monitor her for another 24 hours Objective - Vital Signs Vital signs: Vital Signs Temp 97.7 F 02/12/18 05:30 Pulse 76 02/12/18 12:01 Resp 16 02/12/18 12:01 BP 94/51 02/12/18 12:01 Pulse Ox 96 02/12/18 12:01 Intake & Output 02/11/18 02/12/18 02/12/18 18:59 06:59 18:59 Intake Total 840 50 Balance 840 50 Intake: IV 50 Oral 840 Other: Voiding Method Toilet Toilet Toilet # Voids 3 1 - Exam Head normocephalic Neck supple Lungs diminished on the left with wheeze Heart regular rate and rhythm S1-S2, no rub or gallop Abdomen is soft nontender nondistended positive bowel sounds no hepatosplenomegaly Extremities no edema Neuro alert and orientated to 3 - Labs CBC & Chem 7: 02/12/18 07:25 02/12/18 07:25 Labs: Abnormal Lab Results - Last 24 Hours (Table) 02/12/18 Range/Units 07:25 Glucose 106 H (74-99) mg/dL Microbiology - Last 24 Hours (Table) 02/09/18 21:24 Blood Culture - Preliminary Blood No Growth after 48 hours 02/10/18 04:25 Urine Culture - Preliminary Urine,Voided Group D Enterococcus Assessment and Plan Assessment: 1. Shortness of breath with chest pain likely related to the mass in the patient's left chest. Computed tomography scan of the chest, no evidence of PE but complete atelectasis of the left upper lobe with mass at the left pulmonary home suggestive of a primary malignancy. Occlusion of the left mainstem bronchus. Patient had bronchoscopy with biopsy completed today. Pulmonary service was to monitor for another 24 hours. 2. Previous history of tobacco use several years ago 3. History of coronary artery disease with previous narrative bypass grafting 20 years ago 4. Essential hypertension: Blood pressure stable resume home medications 5. Hyperlipidemia 6. Generalized anxiety disorder and depression 7. UTI: Continue Rocephin. Urine culture growing group D enterococcus GI prophylaxis Protonix and DVT prophylaxis will start Lovenox. Discussed starting Lovenox with pulmonary nurse practitioner I performed an examination of the patient and discussed their management with the physician Trim Installer. I have reviewed the Physician Trim Installer's notes and agree with the documented findings and plan of care
[2018-02-12] MEDS: ENOXAPARIN 40 MG/0.4 ML SYRINGE SQ SCH (14:12)
[2018-02-12] MEDS: MULTIVITAMINS, THERA 1 EACH TAB PO SCH (14:12)
[2018-02-12] MEDS: ACETAMINOPHEN TAB 325 MG TAB PO PRN (17:09)
[2018-02-12] MEDS: MELATONIN 5 MG TABLET PO SCH (21:38)
[2018-02-12] MEDS: ZOLPIDEM 10 MG TAB PO PRN (23:55)
[2018-02-13] MEDS: LACTATED RINGERS 1,000 ML IV SCH (05:32)
[2018-02-13] MEDS: ALPRAZolam 0.5 MG TAB PO SCH ×2 (05:58→13:55)
[2018-02-13 06:39] VITALS: BP 118/56; RESP 16; TEMP 98.2
[2018-02-13] MEDS: IPRATROPIUM-ALBUTEROL 3 ML NEB INHALATION SCH ×2 (07:03→10:58)
[2018-02-13 07:08] LABS: Basophils # (A) 0.1 k/uL (0-0.2); Basophils % (A) 1 %; Eosinophils # (A) 0.5 k/uL (0-0.7); Eosinophils % (A) 7 %; HCT 41.1 % (34.0-46.0); HGB 13.3 gm/dL (11.4-16.0); Lymphocytes # (A) 1.9 k/uL (1.0-4.8); Lymphocytes % (A) 23 %; MCH 29.1 pg (25.0-35.0); MCHC 32.3 g/dL (31.0-37.0); MCV 90.2 fL (80.0-100.0); Mean Platelet Volume 7.9; Monocytes # (A) 0.6 k/uL (0-1.0); Monocytes % (A) 7 %; Neutrophils % (A) 61 %; Platelet Count 216 k/uL (150-450); RBC 4.55 m/uL (3.80-5.40); RDW 13.5 % (11.5-15.5); WBC 8.3 k/uL (3.8-10.6)
[2018-02-13 07:12] LABS: ALT 40 U/L (9-52); AST 29 U/L (14-36); Albumin 3.7 g/dL (3.5-5.0); Alkaline Phosphatase 108 U/L (38-126); Anion Gap 13 mmol/L; Blood Urea Nitrogen 9 mg/dL (7-17); Calcium 9.1 mg/dL (8.4-10.2); Carbon Dioxide 24 mmol/L (22-30); Chloride 104 mmol/L (98-107); Glucose 125 mg/dL (74-99); Sodium 141 mmol/L (137-145); Total Bilirubin 0.5 mg/dL (0.2-1.3); Total Protein 6.6 g/dL (6.3-8.2)
[2018-02-13] MEDS: PANTOPRAZOLE 40 MG TABLET PO SCH (07:22)
[2018-02-13] MEDS: ATENOLOL 25 MG TAB PO SCH (07:22)
[2018-02-13] MEDS: ATORVASTATIN 20 MG TAB PO SCH (07:22)
[2018-02-13] MEDS: EZETIMIBE 10 MG TAB PO SCH (07:23)
[2018-02-13] MEDS: ENOXAPARIN 40 MG/0.4 ML SYRINGE SQ SCH (07:23)
[2018-02-13] MEDS: LOSARTAN 50 MG TAB PO SCH (07:23)
[2018-02-13] MEDS: FLUoxetine HCL 20 MG CAP PO SCH (07:23)
[2018-02-13] MEDS: FLUTICASONE 50MCG/SPRAY NASAL 16GM EA NOSTRIL SCH (07:23)
[2018-02-13] MEDS: cefTRIAXone IN SWFI 1,000 MG/10 ML SYRINGE IVP SCH (07:29)
[2018-02-13] MEDS: LOSARTAN-HCTZ 50-12.5 MG 1 EACH TAB PO SCH (09:41)
--- NOTE | 2018-02-13 10:56 | P.PN ---
Subjective Progress Note Date: 02/13/18 Principal diagnosis: Abnormal chest x-ray, lung mass Progress note dated 02/11/2018 This a very pleasant 67-year-old female who I saw yesterday in consultation. She came into the hospital with complaints of shortness of breath and chest discomfort. Chest x-ray suggested a mass and a computed tomography scan confirmed that. She is scheduled for bronchoscopy tomorrow. She smoked for about 20 years of about a pack a day or so. She quit many years ago. She has a history of hypertension and insomnia anxiety hyperlipidemia and depression. I was able to talk to the patient today to remind her about the procedure. I was able to meet a friend and her . I suspect lung cancer based on the computed tomography scan. Progress note dated 02/12/2018 Patient was seen and examined again today, she was scheduled for a bronchoscopy with biopsy of the left lung mass, and this is suspicious for lung cancer based on her computed tomography scan results. Overnight patient did not have any acute complaints. Vital signs remained stable, she is afebrile, patient is currently on 3 L per nasal cannula with O2 sat of 95%, hemodynamically stable, lung sounds are positive for some scattered rhonchi and diminished breath sounds on the left, clear on the right. Urine culture was positive for group D enterococcus, final sensitivity is pending, patient is afebrile. She denies any urinary complaints, there is no leukocytosis on today's blood work, WBCs 9.6 , electrolyte and renal profile is within normal limits. We will proceed with bronchoscopy and biopsy of the left lung mass this morning. Progress note dated 02/13/2018 This is a 67-year-old female that we saw for the first time on this admission. She came in with complaints of difficulty breathing and chest discomfort. She was discovered on computed tomography scan and chest x-ray to have a mass in the left chest. We did bronchoscopy on her yesterday. She had a very large vascular mass in the distal left mainstem. We did endobronchial biopsies washes and brushes. I'm sure this will represent bronchogenic carcinoma. I have the results back to Friday. From the pulmonary standpoint, the patient is doing much better. Urine culture was positive for group D enterococci. The patient is breathing much better. Could be discharged home today. She does need an outpatient pulmonary function test and she'll also need an outpatient PET scan. She does ask today many questions about being transferred or having her care done someplace else. I told her that was a bit premature and that we would wait for the PET scan results and pulmonary function test as well as to pathology. For example if she has small cell lung cancer, her only treatment options would include chemo and radiation therapy. If she has non-small cell lung cancer, a lot will depend on the PET scan and the pulmonary function test to see whether or not she would be a candidate for a sleeve resection of the left lung i.e. left pneumonectomy. Either way, I don't have enough information at this time to guide her. Objective - Vital Signs Vital signs: Vital Signs Temp 98.2 F 02/13/18 05:00 Pulse 86 02/13/18 07:15 Resp 16 02/13/18 05:00 BP 118/56 02/13/18 05:00 Pulse Ox 89 L 02/13/18 08:44 Intake & Output 02/12/18 02/13/18 02/13/18 18:59 06:59 18:59 Intake Total 50 840 Balance 50 840 Weight 81.647 kg Intake: IV 50 Oral 840 Other: Voiding Method Toilet Toilet Toilet # Voids 2 1 1 - Exam No acute distress, oriented 3. HEENT examination is grossly unremarkable. Mucous membranes are moist. No oral lesions. Neck supple. Full range of motion. No adenopathy thyromegaly or neck vein distention. Cardiovascular examination reveals regular rhythm rate. S1-S2 normal. No S3 or S4. No discernible murmur noted. Lungs reveal diminished breath sounds in the left chest. She has a few scattered rhonchi bilaterally. Breath sounds are better today than they were yesterday. Breath sounds are diminished on the left side. There is slight prolongation. No crackles are noted.. Abdomen soft bowel sounds are heard. No masses or tenderness. Extremities are intact. No cyanosis clubbing or edema. Skin is without rash or lesion. Neurologic examination is brief but nonfocal. - Labs CBC & Chem 7: 02/13/18 06:24 02/13/18 06:24 Labs: Abnormal Lab Results - Last 24 Hours (Table) 02/13/18 Range/Units 06:24 Glucose 125 H (74-99) mg/dL Microbiology - Last 24 Hours (Table) 02/09/18 21:24 Blood Culture - Preliminary Blood No Growth after 72 hours 02/10/18 04:25 Urine Culture - Preliminary Urine,Voided Enterococcus faecalis Assessment and Plan Assessment: Assessment Shortness of breath and chest pain, likely related to the mass in the patient's left chest. Chest x-ray and CT are both abnormal and CT suggests a significant cut off sign in the distal left mainstem. I suspect there may be endobronchial tumor there which would be amenable to bronchoscopy and biopsy. Status post bronchoscopy on February 12 which revealed significant mass in the distal left mainstem. The patient had endobronchial biopsies washes and brushes. Pathology is currently pending. Possible COPD Previous history of bypass grafting many years back History of hypertension History of hyperlipidemia Insomnia Anxiety/depression Previous history of tobacco use Plan: Plan dated 02/10/2018 The patient's medications labs and x-rays are reviewed. The patient be scheduled for bronchoscopy airway examination therapy lavage and BAL on . I suspect though be endobronchial tumor on bronchoscopy. A biopsy should be reasonably make at that time. Hopefully we'll get a diagnosis of that time as well. Additional recommendations and suggestions are forthcoming. Prognosis is poor. Plan dated 02/11/2018 The patient is ready for the bronchoscopy tomorrow. I did have a chance to meet with her and a family friend. They understand that there may be a mass in the chest. This mass may turn sewer to be lung cancer. I'm very suspicious at this time. Additional recommendations and suggestions are forthcoming. Currently her breathing is a bit better. Medications labs and x- rays are all reviewed. White count 9.3 on 12.9 platelet count normal comprehensive metabolic profile is completely normal. Plan dated 02/12/2018 Proceed with bronchoscopy and biopsy of the left lung mass this morning. The lesion is highly suspicious for a lung cancer, risks and benefits of the procedure were explained to the patient's and her family, who wished to proceed at this time. Further recommendations will be based on the results of the biopsy, and her clinical status. Plan dated 02/13/2018 Again we will wait for pathology. It probably won't be back until Friday. We' ll see if we can get this patient discharged home. The patient needs an outpatient PET scan and will need to see me in the office this week for pulmonary function testing. Additional recommendations and suggestions are forthcoming. The endobronchial findings are consistent with bronchogenic carcinoma. Overall prognosis is very guarded at this time. Pathology is still pending. Time with Patient: Less than 30
[2018-02-13 11:11] VITALS: PULSE 84
[2018-02-13] MEDS: MULTIVITAMINS, THERA 1 EACH TAB PO SCH (12:08)
--- NOTE | 2018-02-13 14:15 | P.DS ---
Providers Date of admission: 02/10/18 00:18 Expected date of discharge: 02/13/18 Attending physician: Gregoria Santillan Consults: 02/10/18 00:15 Consult Physician Urgent Consulting Provider: Gary Pressley Consult Reason/Comments: lung mass, left upper lobe atalectasis Do you want consulting provider notified?: Yes Primary care physician: Gregorai [facility] Course: 1. Left lung mass: Status post bronchoscopy with biopsy. Highly suspicious for bronchogenic carcinoma. Awaiting pathology report. Patient will be scheduled for a PET scan next week. Plan to follow-up with pulmonology in the office as directed. Computed tomography scan of the chest, no evidence of PE. 2. Previous history of tobacco use several years ago 3. History of coronary artery disease with previous narrative bypass grafting 20 years ago 4. Essential hypertension: Blood pressure stable on current home medications 5. Hyperlipidemia 6. Generalized anxiety disorder and depression 7. UTI: Urine culture growing group D enterococcus Patient Condition at Discharge: Fair Plan - Discharge Summary New Discharge Prescriptions: New RX: ALPRAZolam [Xanax] 0.5 mg PO BID #12 tab Ciprofloxacin HCl [Cipro] 250 mg PO Q12HR #10 tablet RX: Melatonin 5 mg PO HS #30 tablet RX: traMADol HCl [Ultram] 50 mg PO Q6H PRN #12 tab PRN Reason: Moderate Pain Continue RX: Atenolol [Tenormin] 25 mg PO DAILY RX: FLUoxetine HCL [PROzac] 20 mg PO DAILY RX: Atorvastatin [Lipitor] 20 mg PO DAILY RX: ALPRAZolam [Xanax] 0.5 mg PO HS PRN PRN Reason: Anxiety RX: Olmesartan/Hydrochlorothiazide [Benicar Hct 40-12.5 mg Tablet] 1 tab PO DAILY RX: Ezetimibe [Zetia] 10 mg PO DAILY RX: Multivitamins, Thera [Multivitamin (formulary)] 1 tab PO DAILY RX: Cranberry Fruit Concentrate [Cranberry] 450 mg PO DAILY Discontinued Zolpidem [Ambien] 10 mg PO HS PRN PRN Reason: Insomnia Discharge Medication List RX: ALPRAZolam [Xanax] 0.5 mg PO HS PRN 02/09/18 [History] RX: Atenolol [Tenormin] 25 mg PO DAILY 02/09/18 [History] RX: Atorvastatin [Lipitor] 20 mg PO DAILY 02/09/18 [History] RX: Cranberry Fruit Concentrate [Cranberry] 450 mg PO DAILY 02/09/18 [History] RX: Ezetimibe [Zetia] 10 mg PO DAILY 02/09/18 [History] RX: FLUoxetine HCL [PROzac] 20 mg PO DAILY 02/09/18 [History] RX: Multivitamins, Thera [Multivitamin (formulary)] 1 tab PO DAILY 02/09/18 [ History] RX: Olmesartan/Hydrochlorothiazide [Benicar Hct 40-12.5 mg Tablet] 1 tab PO DAILY 02/09/18 [History] Ciprofloxacin HCl [Cipro] 250 mg PO Q12HR #10 tablet 02/13/18 [Rx] RX: ALPRAZolam [Xanax] 0.5 mg PO BID #12 tab 02/13/18 [Rx] RX: Melatonin 5 mg PO HS #30 tablet 02/13/18 [Rx] RX: traMADol HCl [Ultram] 50 mg PO Q6H PRN #12 tab 02/13/18 [Rx] Follow up Appointment(s)/Referral(s): Russell Crandall DO [Doctor of Osteopathic Medicine] - 02/25/18 2:15 pm Patient Instructions/Handouts: Palpitations (DC), Dyspnea (GEN), Noncardiac Chest Pain (DC), Hypoxia (GEN) Activity/Diet/Wound Care/Special Instructions: [facility] [phone] Discharge Disposition: HOME SELF-CARE
== END 2018-02-13 14:38 | disposition home or self-care (01) | DRG 167 ==
LOC: EC 20:36 → 5MS5E 02-10 00:18
PROVIDERS: ADMIT Internal Medicine; ATTEND Internal Medicine
PROC: 0B9J8ZX Drainage of Left Lower Lung Lobe, Via Natural or Artificial Opening Endoscopic, Diagnostic (ICD-10-PCS; principal; 2018-02-12 11:00)
PROC: 0BBJ8ZX Excision of Left Lower Lung Lobe, Via Natural or Artificial Opening Endoscopic, Diagnostic (ICD-10-PCS; principal; 2018-02-12 11:00)
DX: C34.32 Malignant neoplasm of lower lobe, left bronchus or lung (principal); J98.11 Atelectasis; N39.0 Urinary tract infection, site not specified; E78.5 Hyperlipidemia, unspecified; F32.9 Major depressive disorder, single episode, unspecified; F41.1 Generalized anxiety disorder; G47.00 Insomnia, unspecified; I10 Essential (primary) hypertension; I25.10 Atherosclerotic heart disease of native coronary artery without angina pectoris; J44.9 Chronic obstructive pulmonary disease, unspecified; R09.02 Hypoxemia; Z87.891 Personal history of nicotine dependence; Z95.1 Presence of aortocoronary bypass graft
CPT/HCPCS: 31623; 31624; 31625; 36415; 71046; 71275; 80053; 81001; 82550; 82553; 83735; 83880; 84484; 85025; 85379; 85610; 85730; 87040; 87077; 87086; 87186; 88104; 88108; 88305; 88341; 88342; 93005; 94640; 94760; 96374; 99285

== ENCOUNTER → 2018-02-21 | Outpatient (CLI) | payer MEDICARE, OTHER ==
--- NOTE | 2018-02-22 10:07 | PE ---
EXAMINATION TYPE: PET CT fusion skull to thigh DATE OF EXAM: 02/21/2018 COMPARISON: CTA chest February 09, 2018 HISTORY: Diagnosed with lung cancer on bronchoscopy one week ago. Abnormal CT. TECHNIQUE: Following the intravenous administration of 13.054 mCi of F-18 FDG, whole body images are performed from the skull base to the midthigh. Images are reviewed on the computer in the coronal, axial, and sagittal planes. Reconstructed rotating images are created on independent workstation and reviewed on the computer. A localization and attenuation correction CT is performed in conjunction with the PET scan. SCAN: Initial Scan FINDINGS: SKULL BASE AND NECK: No suspicious hypermetabolic uptake is seen. CHEST, MEDIASTINUM, AND HILAR REGION: There is hypermetabolic left hilar mass measuring approximately 5.5 x 4.0 cm on PET axial image 76, craniocaudal measurement is roughly 5.8 cm on coronal and sagitt al images. Max SUV is 16.33. There is postobstructive atelectasis extending inferiorly, anteriorly, a nd superiorly without abnormal hypermetabolic uptake. There is complete collapse of the left upper lo be redemonstrated. There is prominent but subcentimeter prevascular lymph node measuring 8 x 7 mm axi al image 66 without abnormal hypermetabolic uptake. There are prominent but subcentimeter subcarinal and left hilar lymph nodes without abnormal hypermetabolic uptake. Left-sided volume loss with medias tinal shift is noted. No additional areas of suspicious hypermetabolic uptake are present. ABDOMEN AND PELVIS: No suspicious hypermetabolic uptake is seen. No worrisome adrenal masses are note d. Normal excretion and collecting systems and bladder is appreciated. OSSEOUS STRUCTURES: No suspicious hypermetabolic uptake is present. OTHER CT: There is small left pleural effusion that does not show abnormal hypermetabolic uptake on c urrent study new from prior CT. Mild calcified plaque at left carotid bulb level is present. Post CABG changes with mediastinal clips and sternal wires is noted. There is hyperexpansion of right lung seen. Mild underlying emphysematous changes redemonstrated. Cholecystectomy clips are redemonstrated. There is mild to moderate calcified plaque in the aorta and branch vessels. There is facet arthropathy lower lumbar levels. Multilevel spurring in the spine. IMPRESSION: Hypermetabolic uptake corresponds to biopsy-proven left hilar malignancy. No suspicious a denopathy or metastatic disease clearly seen. TNM STAGING T3,N0,M0 AJCC STAGING IIB
== END | disposition home or self-care (01) ==
LOC: RADPETMAIN 12:23
PROVIDERS: ATTEND Internal Medicine Critical Care Medicine
DX: C78.00 Secondary malignant neoplasm of unspecified lung (principal)
CPT/HCPCS: 78815; A9552

== ENCOUNTER → 2018-03-02 | Outpatient (CLI) | payer MEDICARE, OTHER ==
--- NOTE | 2018-03-02 14:43 | XR ---
EXAMINATION TYPE: XR chest 2V DATE OF EXAM: 03/02/2018 COMPARISON: 02/09/2018 , CT chest 02/09/2018 INDICATION: malignant neoplasm of the lung TECHNIQUE: Frontal and lateral views of the chest are obtained. FINDINGS: The heart size is enlarged. The pulmonary vasculature is normal. There is shift the mediastinum to the left. Left hilar mass may be present Sternotomy wires are in th e midline.. IMPRESSION: 1. Left hilar mass and shift the mediastinum to the left is again evident. 2. Right lung appears clear
--- NOTE | 2018-03-02 14:51 | NM ---
EXAMINATION TYPE: NM pul perf jeanette dif w image DATE OF EXAM: 03/02/2018 COMPARISON: NONE HISTORY: Shortness of breath Following administration of 5.32 mCi Tc 99m MAA. Images obtained post injection. FINDINGS: There is markedly diminished flow to the left lung. Without ventilation images assessment for pulmona ry embolism nondiagnostic. Quantitative analysis is performed. POSTERIOR PERFUSION (% RATIO) LEFT RIGHT UPPER 1.96 18.3 MIDDLE 3.92 55.88 LOWER 3.99 15.9 ANTERIOR PERFUSION (% RATIO) LEFT RIGHT UPPER 2.02 18.24 MID 2.56 63.10 LOWER 1.94 12.13 GEOMETRIC MEAN (% RATIO) LEFT RIGHT UPPER 2.0 18.45 MID 3.18 59.45 LOWER 2.79 14.10 IMPRESSION: Markedly diminished perfusion to the left lung. Quantitative analysis as above with geometric mean as listed above.
== END | disposition home or self-care (01) ==
LOC: RADNMMAIN 13:00
PROVIDERS: ATTEND Internal Medicine Critical Care Medicine
DX: C34.90 Malignant neoplasm of unspecified part of unspecified bronchus or lung (principal)
CPT/HCPCS: 71046; 78597; A9540

== ENCOUNTER → 2018-03-12 | Outpatient (CLI) | payer MEDICARE, OTHER ==
[2018-03-12 14:12] LABS: Appearance,Urine Clear (Clear); Bacteria,Urine Rare /hpf; Bilirubin,Urine Negative (Negative); Blood,Urine Negative (Negative); Color,Urine Light Yellow; Glucose,Urine (UA) Negative (Negative); Ketones,Urine Negative (Negative); Leukocyte Esterase,Urine Moderate (Negative); Mucus,Urine Rare /hpf; Nitrite,Urine Negative (Negative); Protein,Urine Negative (Negative); RBC,Urine <1 /hpf (0-5); Specific Gravity,Urine 1.006 (1.001-1.035); Squamous Epithelial Cell,Urine 1 /hpf (0-4); Urobilinogen,Urine <2.0 mg/dL (<2.0); WBC,Urine 12 /hpf (0-5)
[2018-03-12 14:21] LABS: Basophils # (A) 0.1 k/uL (0-0.2); Basophils % (A) 1 %; Eosinophils # (A) 0.4 k/uL (0-0.7); Eosinophils % (A) 5 %; HCT 40.9 % (34.0-46.0); HGB 13.5 gm/dL (11.4-16.0); Lymphocytes % (A) 24 %; MCH 30.4 pg (25.0-35.0); Monocytes # (A) 0.4 k/uL (0-1.0); Monocytes % (A) 5 %; Neutrophils # (A) 5.3 k/uL (1.3-7.7); Neutrophils % (A) 63 %; Platelet Count 208 k/uL (150-450); RBC 4.45 m/uL (3.80-5.40); RDW 14.4 % (11.5-15.5); WBC 8.3 k/uL (3.8-10.6)
[2018-03-12 14:41] LABS: Anion Gap 10 mmol/L; Blood Urea Nitrogen 10 mg/dL (7-17); Carbon Dioxide 26 mmol/L (22-30); Chloride 104 mmol/L (98-107); Potassium 4.3 mmol/L (3.5-5.1); Sodium 140 mmol/L (137-145)
== END | disposition home or self-care (01) ==
LOC: LABPAT 13:22
PROVIDERS: ATTEND Thoracic Surgery (Cardiothoracic Vascular Surgery)
DX: Z01.812 Encounter for preprocedural laboratory examination (principal); C34.12 Malignant neoplasm of upper lobe, left bronchus or lung; C34.32 Malignant neoplasm of lower lobe, left bronchus or lung
CPT/HCPCS: 36415; 80051; 81001; 82565; 84520; 85025

== ENCOUNTER 2018-03-19 05:49 | Inpatient (IN) | payer MEDICARE, OTHER ==
[2018-03-10 17:29] VITALS: BMI 32.4
[~2018-03-19 05:49] MED LIST: DEXAMETHASONE SOD PHOSPHATE 10 MG/ML 1 ML VIAL IV ONE; LACTATED RINGERS 1,000 ML IV SCH; MIDAZOLAM 2 MG/2 ML VIAL IV PRN; ONDANSETRON 4 MG/2 ML VIAL IVP ONE; Pre Op ABX Message 1 EACH MISC MISCELLANE ONE; fentaNYL (PF) 50 MCG/ML 2 ML AMP IV PRN
[2018-03-19] MEDS ORDERED: LIDOCAINE 1% 20 ML VIAL (10MG/ML) FOR IV START INTRADERMA ONE (06:50)
[2018-03-19] MEDS ORDERED: SUCCINYLCHOLINE CHLORIDE 100 MG/5 ML SYR IV ONE (07:38)
[2018-03-19] MEDS ORDERED: PROPOFOL 10 MG/ML 20 ML VIAL IV ONE (07:38)
[2018-03-19] MEDS ORDERED: fentaNYL (PF) 50 MCG/ML 2 ML AMP ONE (07:38)
[2018-03-19] MEDS ORDERED: PHENYLEPHRINE-0.9% NACL SYG 1 MG/10 ML SYRINGE ONE (07:38)
[2018-03-19] MEDS ORDERED: METOPROLOL TARTRATE 5 MG/5 ML VIAL IVP ONE ×2 (07:38→10:15)
[2018-03-19] MEDS ORDERED: MIDAZOLAM 2 MG/2 ML VIAL ONE (07:38)
[2018-03-19] MEDS ORDERED: NEOSTIGMINE 1 MG/ML 10 ML VIAL ONE (07:38)
[2018-03-19] MEDS ORDERED: LIDOCAINE 1% INJ 10MG/ML (20 ML MDV) ONE (07:38)
[2018-03-19] MEDS ORDERED: GLYCOPYRROLATE 0.2 MG/ML 2 ML VIAL ONE (07:38)
[2018-03-19] MEDS ORDERED: ePHEDrine SULFATE/0.9% NACL/PF 50 MG/5 ML SYRINGE IV ONE (07:38)
[2018-03-19] MEDS ORDERED: ROCURONIUM BROMIDE 10 MG/ML 10 ML VIAL IV ONE (07:38)
[2018-03-19] MEDS ORDERED: LACTATED RINGERS 1,000 ML IV ONE (07:45)
[2018-03-19] MEDS ORDERED: SODIUM CHLORIDE 0.9% 50 ML with ceFAZolin 2,000 MG IV ONE ×2 (08:20)
[2018-03-19] MEDS ORDERED: BUPIVACAINE (PF) 0.5% 30 ML VIAL SQ ONE (08:51)
[2018-03-19] MEDS ORDERED: ZOLPIDEM 10 MG TAB PO PRN (12:38)
[2018-03-19] MEDS ORDERED: ALPRAZolam 0.5 MG TAB PO PRN (12:38)
[2018-03-19] MEDS ORDERED: ONDANSETRON 4 MG/2 ML VIAL IVP PRN (12:40)
[2018-03-19] MEDS ORDERED: IPRATROPIUM-ALBUTEROL 3 ML NEB IH PRN (12:40)
[2018-03-19] MEDS: HYDROmorphone 0.5 MG/0.5 ML SYRINGE IVP ONE ×2 (13:19→14:11)
--- NOTE | 2018-03-19 13:32 | XR ---
EXAMINATION TYPE: XR chest 1V portable DATE OF EXAM: 03/19/2018 COMPARISON: Prior chest x-ray 03/02/2018 HISTORY: Postlaminectomy TECHNIQUE: Single frontal view of the chest is obtained. FINDINGS: Postpneumonectomy changes present, patient is post median sternotomy. Volume loss present in left hemithorax. Left hemidiaphragm is obscured. IMPRESSION: Postop changes.
[2018-03-19] MEDS ORDERED: DEXTROSE 5%-0.45% NACL 1,000 ML IV SCH (14:00)
[2018-03-19 14:45] LABS: Glucose,Whole Blood 130 mg/dL (75-99)
[2018-03-19] MEDS: IPRATROPIUM-ALBUTEROL 3 ML NEB IH SCH ×2 (15:19→18:55)
[2018-03-19] MEDS: ceFAZolin IN SWFI 2 GM/20 ML SYRINGE IVP SCH (15:44)
[2018-03-19] MEDS: HEPARIN SODIUM,PORCINE 5,000 UNIT/ML 1 ML VIAL SQ SCH (15:44)
--- NOTE | 2018-03-19 16:38 | P.CNPUL ---
History of Present Illness Consult date: 03/19/18 Requesting physician: Jimbo Quach Reason for consult: lung mass, abnormal CXR/CT, other Chief complaint: Left upper lobe mass, squamous cell carcinoma History of present illness: Mrs. Torres is a 67-year-old white female patient of Dr. Santillan who Dr. Crandall saw in consultation on 02/10/2018 when the patient presented to the hospital with dyspnea, chest pain, hypoxemia, and the finding of a left upper lobe lung mass on the chest x-ray and CT of the chest. Patient has a history of previous nicotine dependence of [id number] smoking history, but quit many years ago. Patient was having left-sided chest discomfort, and shortness of breath on exertion. She underwent bronchoscopy with biopsies of the left upper lobe lung mass, and the pathology was positive for moderately differentiated squamous cell carcinoma. Patient underwent PET/CT scan which showed hypermetabolic uptake to biopsy-proven left hilar malignancy, but no suspicious adenopathy or metastatic disease. Outpatient PFT showed FEV1 of 49% of predicted, FVC 55% of predicted, DLCO of 69%, and this was consistent with a combined obstructive and restrictive airway disease, due to COPD, and parenchymal restriction secondary to left lung mass. Patient had a quantitative VQ scan which showed markedly diminished perfusion to the left lung most likely due to postobstructive atelectasis. Today patient underwent robotic-assisted left pneumonectomy by Dr. Quach, she seen in the intensive care postop, resting in bed, with her family at the bedside, awake alert, on her amount of pain the left chest surgical incision site. He is currently on 4 L per nasal cannula, with a pulse ox of 97%, borderline hypotensive, and her blood pressures in the 80s and 90s systolic/50s diastolic. Afebrile. She is awake alert, no evidence of altered mentation. He is currently on D5.45 at a rate of 40 ML per hour, no other drips. She was started on nebulized bronchodilators, ketorolac and tramadol for pain control. She is receiving antibiotics. Follow-up chest x-ray showed post pneumonectomy volume loss in the left hemithorax left hemidiaphragm is obscured. Review of Systems All systems: negative Constitutional: Denies chills, Denies fever Eyes: denies blurred vision, denies pain Ears, nose, mouth and throat: Denies headache, Denies sore throat Cardiovascular: Reports decreased exercise tolerance, Reports dyspnea on exertion, Denies chest pain, Denies shortness of breath Respiratory: Denies cough Gastrointestinal: Denies abdominal pain, Denies diarrhea, Denies nausea, Denies vomiting Genitourinary: Denies dysuria, Denies hematuria Musculoskeletal: Denies myalgias Integumentary: Denies pruritus, Denies rash Neurological: Denies numbness, Denies weakness Psychiatric: Denies anxiety, Denies depression Endocrine: Denies fatigue, Denies weight change Past Medical History Past Medical History: Cancer, Hyperlipidemia, Hypertension, Osteoarthritis (OA) Additional Past Medical History / Comment(s): recent dx. lung cancer, uses oxygen @2l PRN, gets SOB w/exertion, taking antibiotic for "sore throat" History of Any Multi-Drug Resistant Organisms: None Reported Past Surgical History: Cholecystectomy, Coronary Bypass/CABG, Heart Catheterization Additional Past Surgical History / Comment(s): triple bypass-1997 Past Anesthesia/Blood Transfusion Reactions: No Reported Reaction Smoking Status: Former smoker - Past Family History Brother(s) Family Medical History: Deep Vein Thrombosis (DVT) Medications and Allergies Home Medications Medication Instructions Recorded Confirmed Type ALPRAZolam [Xanax] 0.5 mg PO HS PRN 02/09/18 03/19/18 History Atorvastatin [Lipitor] 20 mg PO HS 02/09/18 03/19/18 History Cranberry Fruit Concentrate 450 mg PO DAILY 02/09/18 03/19/18 History [Cranberry] Ezetimibe [Zetia] 10 mg PO DAILY 02/09/18 03/19/18 History FLUoxetine HCL [PROzac] 20 mg PO DAILY 02/09/18 03/19/18 History Multivitamins, Thera [Multivitamin 1 tab PO DAILY 02/09/18 03/19/18 History (formulary)] Olmesartan/Hydrochlorothiazide 1 tab PO DAILY 02/09/18 03/19/18 History [Benicar Hct 40-12.5 mg Tablet] ALPRAZolam [Xanax] 0.5 mg PO BID #12 tab 02/13/18 03/19/18 Rx traMADol HCl [Ultram] 50 mg PO Q6H PRN #12 tab 02/13/18 03/19/18 Rx Amoxic-Pot Clav 500-125 mg 1 tab PO Q12HR 03/10/18 03/19/18 History [Augmentin 500-125 mg] Aspirin 81 mg PO DAILY 03/10/18 03/19/18 History Fluticasone/Salmeterol [Advair 1 inhalation PO RT-BID 03/10/18 03/19/18 History 250-50 Diskus] Ipratropium/Albuterol Sulfate 1 puff INHALATION RT-QID 03/10/18 03/19/18 History [Combivent Respimat Inhaler] Metoprolol Tartrate [Lopressor] 25 mg PO BID 03/10/18 03/19/18 History Wagoner-3 Fatty Acids/Fish Oil [Fish 1 cap PO DAILY 03/10/18 03/19/18 History Oil 1,000 mg Softgel] Zolpidem [Ambien] 10 mg PO HS PRN 03/11/18 03/19/18 History Allergies Allergy/AdvReac Type Severity Reaction Status Date / Time No Known Allergies Allergy Verified 03/10/18 07:47 Physical Exam Vitals: Vital Signs Temp Pulse Pulse Pulse Resp BP BP 03/19/18 15:30 76 16 03/19/18 15:19 74 16 03/19/18 15:10 72 94/56 03/19/18 15:00 97.5 F L 79 90/56 03/19/18 14:50 71 03/19/18 14:42 79 03/19/18 14:30 75 16 109/57 03/19/18 14:14 86 18 102/58 03/19/18 14:00 71 16 102/56 03/19/18 13:45 70 16 101/55 03/19/18 13:30 69 16 95/50 03/19/18 13:15 78 16 101/59 03/19/18 13:00 96.9 F L 99 12 101/56 03/19/18 06:53 98.1 F 66 18 BP BP Pulse Ox 03/19/18 15:30 03/19/18 15:19 03/19/18 15:10 97 03/19/18 15:00 97 03/19/18 14:50 97 03/19/18 14:42 89 L 03/19/18 14:30 98/56 97 06/28/18 14:14 110/66 97 06/28/18 14:00 97/52 97 03/19/18 13:45 94/50 97 03/19/18 13:30 102/66 98 03/19/18 13:15 97 03/19/18 13:00 99 03/19/18 06:53 108/67 93 L Intake and Output 03/19/18 03/19/18 03/19/18 06:59 14:59 22:59 Intake Total 1100 40 Output Total 425 50 Balance 675 -10 Intake: IV 1100 Intake, IV Titration 40 Amount Dextrose 5%-0.45% NaCl 1, 40 000 ml @ 40 mls/hr IV . Q24H JESSICA Rx#:[id number] Output: Urine 350 50 Estimated Blood Loss 75 Other: Voiding Method Indwelling Catheter Weight 88.451 kg ABP, PAP, CO, CI - Last 8 Hours Arterial Blood Pressure 90/86 GENERAL EXAM: Alert, pleasant, 67-year-old white female, in moderate amount of pain at the left chest wall post surgical incision HEAD: Normocephalic/atraumatic. EYES: Normal reaction of pupils, equal size. Conjunctiva pink, sclera white. NOSE: Clear with pink turbinates. THROAT: No erythema or exudates. NECK: No masses, no JVD, no thyroid enlargement, no adenopathy. CHEST: Left chest incisions at the level of mid axilla at approximately fourth or fifth intercostal line and posterior left chest are covered with Band-Aids, clean dry and intact LUNGS: Absent lung sounds on the left, clear lung sounds on the right CVS: Regular rate and rhythm, normal S1 and S2, no gallops, no murmurs, no rubs ABDOMEN: Soft, nontender. No hepatosplenomegaly, normal bowel sounds, no guarding or rigidity. EXTREMITIES: No clubbing, no edema, no cyanosis, 2+ pulses and upper and lower extremities. MUSCULOSKELETAL: Muscle strength and tone normal. SPINE: No scoliosis or deformity SKIN: No rashes CENTRAL NERVOUS SYSTEM: Alert and oriented -3. No focal deficits, tone is normal in all 4 extremities. PSYCHIATRIC: Alert and oriented -3. Appropriate affect. Intact judgment and insight. Results - Laboratory Findings Abnormal lab findings: Abnormal Labs 03/12/18 03/19/18 13:34 14:44 POC Glucose (mg/dL) 130 H Crossmatch See Detail - Diagnostic Findings Chest x-ray: report reviewed, image reviewed Assessment and Plan Plan: Assessment: #1. Squamous cell carcinoma of the lung, patient was found to have a 4x4 cm mass in the left upper lobe that was completely occluding the left upper lobe bronchus and involved the distal left mainstem bronchus, biopsy-proven, PET scan from 02/21/2018 showed hypermetabolic uptake corresponding to the left hilar malignancy, but no metastatic disease. Status post robotic-assisted left pneumonectomy, postop day 0 #2. COPD, stable. Outpatient PFT showed FEV1 of 49% of predicted, FVC of 55% of predicted, and DLCO of 69% of predicted, and the patient had a combination of obstructive and restrictive pulmonary defect #3. History of remote nicotine dependence, [id number] smoking history, in remission #4. Coronary artery disease, status post coronary artery bypass grafting proximately 20 years ago #5. Hypertension, hyperlipidemia #6. Anxiety, depression #7. Recent urinary tract infection with urine culture positive for Enterococcus faecalis with jalloh susceptibility patient was treated with ciprofloxacin Plan: Continue encouraging deep breathing and coughing, pain control, hemodynamics, fever pattern, labs. Post-op chest x-ray has been reviewed by Dr. Monroy. Continue nebulized bronchodilators, continue Pulmicort and Perforomist. Daily chest x-rays. We'll continue to follow I performed a history & physical examination of the patient and discussed their management with my nurse practitioner, Rachana Amato. I reviewed the nurse practitioner's note and agree with the documented findings and plan of care. Lung sounds are positive clear lung sounds on the right. The findings and the impression was discussed with the patient. I attest to the documentation by the nurse practitioner.
--- NOTE | 2018-03-19 16:51 | OP ---
OPERATIVE REPORT DATE OF OPERATION: 03/19/2018 PREOPERATIVE DIAGNOSIS: Lung cancer, left upper lobe extending into the left mainstem bronchus. POSTOPERATIVE DIAGNOSIS: Lung cancer, left upper lobe extending into the left mainstem bronchus. OPERATIVE PROCEDURE: Robotically assisted thoracoscopic left pneumonectomy with mediastinal lymph node dissection. ACTIVITY LEADER: Dr. Damaso Khalil. ANESTHESIA: General endotracheal. INDICATIONS: The patient is a 67-year-old woman who presented with a large mass in the left hilum. Bronchoscopy revealed endobronchial tumor obstructing the left upper lobe and extending into the left mainstem bronchus. Biopsies were positive for non-small cell carcinoma. PET scan demonstrated no evidence of metastasis and pneumonectomy was recommended. Patient had adequate pulmonary function to tolerate this. OPERATIVE PROCEDURE: Patient was electively admitted to the hospital, brought to the operating room, placed supine on the operating table. Anesthetized and intubated with a double-lumen endotracheal tube. The tube was positioned with fiberoptic bronchoscopy and secured. The patient was turned to the right lateral decubitus position. Left chest sterilely prepped and draped. The patient appropriately positioned for robotic surgery. Additional incision was made in the anterior axillary line in the 8th interspace and the 8 mm port was placed, anterior and posterior to this by 10 cm in the same interspace were placed 10 mm ports and then a 2nd 8 mm port was placed posteriorly just anterior to the spine in the 6th interspace. A working port was placed between in the midaxillary line in the 10th interspace and the CO2 insufflation was begun after confirming presence in the pleural space. The patient had previous bypass surgery including RANDOLPH to the LAD and adhesions of the lung to the mediastinum and RANDOLPH graft were carefully and tediously taken down with bipolar electrocautery dissection. At one point, the patient did bottom out her pressure either due to a direct compression of the heart by the robot or possibly due to tension on the RANDOLPH graft. We stopped operating at that time for about 10 minutes while the patient recovered her pressure and then the patient remained hemodynamically stable throughout the remainder of the operation. After the superior and his adhesions were taken down, anterior adhesions were taken down and then the inferior pulmonary ligament was mobilized. We encircled the inferior pulmonary vein. There were some paraesophageal lymph nodes that were biopsied. Once the inferior pulmonary vein was encircled, it was ligated and divided with a single firing of robotic vascular stapler. Dissection was carried up onto the bronchus and the L10 and level 7 lymph nodes and level 6 lymph nodes were all resected and sent for permanent section. We were able to encircle the bronchus and slide the stapler as far down as we could. Pull back the endotracheal tube and fire close the stapler. We then made sure the endotracheal tube was free and left the blue cuff down and inflated the white cuff and divided the bronchus. We were now able to encircle the superior pulmonary vein and divided it with a vascular stapler and this left us with just some pleura and the main pulmonary artery. Careful dissection was carried out around the left main pulmonary artery and it was ligated divided with robotic vascular stapler. The remaining pleura was divided lobectomy. The pneumonectomy specimen was placed in an EndoCatch bag and the working port incision was enlarged and was brought out through the working port incision was sent for frozen section. While we were waiting for frozen section, we irrigated the chest and noted no air leak and then suctioned free the irrigation and then whip blocks at levels 6, 7, 8, 9 and 10 with 3 to 5 mL of 0.5% Marcaine per level. Red rubber catheter was placed into the chest for evacuation of air. Good hemostasis was verified. We began closure of the chest. At this point, the frozen section came back with some minimal but significant microscopic disease at the margin. It was decided to reopen the incisions. We docked the robot and we resected the bronchus. We grasped the bronchus with the robot and pulled it upwards and were able to place a stapler about a cm to a cm and half more proximal on the left mainstem bronchus, divide the left mainstem bronchus again. At this time, we placed a suture while still in the chest on the proximal portion of the margin. We brought the suture and the specimen out and sent it back for frozen section. This time it was negative and then we again irrigated with warm water and we closed the incisions with layers of Vicryl suture. Skin glue and sterile dressings were applied. The patient was turned supine and air was evacuated through the red rubber catheter until we saw some respiratory variation in the waveform on the arterial line. At that point, the red rubber catheter was removed. A dry sterile dressing was applied. The patient was extubated, transferred to recovery in stable condition. BLOOD LOSS: For the case was 75 mL. Urine output was 300 mL and total IV fluids were 700 mL. MMODL / IJN: [id number] /
[2018-03-19] MEDS: KETOROLAC 30 MG/ML 1 ML VIAL IVP SCH (17:34)
[2018-03-19] MEDS: traMADol 50 MG TAB PO PRN (18:55)
[2018-03-19] MEDS: FORMOTEROL FUMARATE 20 MCG/2 ML NEBU INHALATION SCH (19:03)
[2018-03-19] MEDS ORDERED: ATORVASTATIN 20 MG TAB PO SCH (21:00)
[2018-03-19] MEDS: METOPROLOL TARTRATE 25 MG TAB PO SCH (21:33)
[2018-03-19] MEDS: ALPRAZolam 0.5 MG TAB PO SCH (21:35)
[2018-03-19] MEDS ORDERED: ACETAMINOPHEN IV (For NPO) 1,000 MG in EMPTY BAG 1 BAG IVPB PRN (22:26)
[2018-03-20] MEDS: ceFAZolin IN SWFI 2 GM/20 ML SYRINGE IVP SCH (00:40)
[2018-03-20] MEDS: HEPARIN SODIUM,PORCINE 5,000 UNIT/ML 1 ML VIAL SQ SCH ×3 (00:41→17:55)
[2018-03-20] MEDS: KETOROLAC 30 MG/ML 1 ML VIAL IVP SCH ×4 (00:41→17:55)
[2018-03-20 04:57] LABS: Basophils % (A) 0 %; Eosinophils # (A) 0.2 k/uL (0-0.7); Eosinophils % (A) 2 %; HCT 36.2 % (34.0-46.0); HGB 11.3 gm/dL (11.4-16.0); Lymphocytes # (A) 2.2 k/uL (1.0-4.8); Lymphocytes % (A) 22 %; MCH 29.5 pg (25.0-35.0); MCHC 31.3 g/dL (31.0-37.0); MCV 94.2 fL (80.0-100.0); Mean Platelet Volume 8.4; Monocytes # (A) 0.9 k/uL (0-1.0); Monocytes % (A) 9 %; Neutrophils # (A) 6.4 k/uL (1.3-7.7); Neutrophils % (A) 65 %; Platelet Count 155 k/uL (150-450); RBC 3.84 m/uL (3.80-5.40); WBC 9.9 k/uL (3.8-10.6)
[2018-03-20 05:07] LABS: Magnesium 1.9 mg/dL (1.6-2.3); Phosphorus 4.1 mg/dL (2.5-4.5)
[2018-03-20] MEDS: traMADol 50 MG TAB PO PRN ×3 (05:21→18:44)
[2018-03-20] MEDS: MAGNESIUM SULFATE-D5W PMX 1 GM in DEXTROSE/WATER 1 100ML.BAG IVPB SCH ×2 (06:57→08:32)
[2018-03-20] MEDS ORDERED: MAGNESIUM HYDROXIDE 2,400 MG/10 ML CUP PO PRN (07:17)
--- NOTE | 2018-03-20 08:08 | XR ---
EXAMINATION TYPE: XR chest 1V DATE OF EXAM: 03/20/2018 COMPARISON: Prior chest 03/19/2018 HISTORY: Postpneumonectomy TECHNIQUE: Single frontal view of the chest is obtained. FINDINGS: Postpneumonectomy changes again noted with volume loss in the left hemithorax. Patient is post median sternotomy. Mediastinal shift towards the left hemithorax. Right lung is clear. IMPRESSION: Postop changes.
[2018-03-20] MEDS: IPRATROPIUM-ALBUTEROL 3 ML NEB IH SCH ×4 (08:14→20:33)
[2018-03-20] MEDS: FORMOTEROL FUMARATE 20 MCG/2 ML NEBU INHALATION SCH ×2 (08:14→20:33)
[2018-03-20] MEDS: PANTOPRAZOLE 40 MG TABLET PO SCH (08:32)
[2018-03-20] MEDS: FLUoxetine HCL 20 MG CAP PO SCH (08:33)
[2018-03-20] MEDS: ASPIRIN 81 MG PO SCH (08:33)
[2018-03-20] MEDS: SENNOSIDES 8.6 MG TAB PO SCH (08:34)
[2018-03-20] MEDS ORDERED: EZETIMIBE 10 MG TAB PO SCH (09:00)
--- NOTE | 2018-03-20 09:10 | P.PN ---
Subjective Progress Note Date: 03/20/18 Principal diagnosis: Lung cancer, squamous cell carcinoma, left upper lobe extending into the left mainstem bronchus. Previous medical history of coronary artery disease with coronary artery bypass surgery proximally 20 years ago, hypertension, hyperlipidemia, COPD, and previous tobacco dependence. POD #1 robotically assisted thoracoscopic left pneumonectomy with mediastinal lymph node dissection. Patient is currently sitting up in the chair in no acute distress. States pain is controlled, does complain of shortness of breath with exertion. She has ambulated in the hallway already this morning. Objective - Vital Signs Vital signs: Vital Signs Temp 98.0 F 03/20/18 04:30 Pulse 70 03/20/18 08:36 Resp 22 03/20/18 07:00 BP 91/57 03/20/18 07:00 Pulse Ox 96 03/20/18 08:15 Intake & Output 03/19/18 03/20/18 03/20/18 18:59 06:59 18:59 Intake Total 1620 2270 220 Output Total 565 440 80 Balance 1055 1830 140 Weight 88.451 kg 102.7 kg Intake: IV 1100 1450 160 ACETAMINOPHEN IV (For NPO 100 ) 1,000 mg In Empty Bag 1 bag @ 400 mls/hr IVPB Q6HR PRN Rx#:[id number] Dextrose 5%-0.45% NaCl 1, 440 40 000 ml @ 40 mls/hr IV . Q24H JESSICA Rx#:[id number] Lactated Ringers 1,000 ml 910 20 @ 20 mls/hr IV .Q24H JESSICA Rx#:[id number] Magnesium Sulfate-D5w Pmx 100 1 gm In Dextrose/Water 1 100ml.bag @ 100 mls/hr IVPB Q1H JESSICA Rx#: [id number] Intake, IV Titration 160 40 Amount Dextrose 5%-0.45% NaCl 1, 160 40 000 ml @ 40 mls/hr IV . Q24H JESSIAC Rx#:[id number] Oral 360 780 60 Output: Urine 490 440 80 Estimated Blood Loss 75 Other: Voiding Method Indwelling Catheter Indwelling Catheter ABP, PAP, CO, CI - Last Documented Arterial Blood Pressure 84/50 - Constitutional General appearance: Present: cooperative, no acute distress, obese - Respiratory Details: Lungs sounds diminished on the left. Respirations even, nonlabored. Currently on 2 L nasal cannula with oxygen saturation 96%. Able to achieve 750 mL on her incentive spirometry. Effective cough. - Cardiovascular Details: S1, S2 present. Regular rate and rhythm, sinus rhythm on telemetry. Palpable peripheral pulses bilaterally. No edema present. No calf pain or tenderness noted. SCDs present. - Gastrointestinal Gastrointestinal Comment(s): Abdomen soft, nontender, nondistended. Active bowel sounds 4 quadrants. Tolerating clear liquids. Negative flatus. - Genitourinary Genitourinary Comment(s): Combs present draining clear, yellow urine. Output 30-100 mL/h overnight. - Integumentary Integumentary Comment(s): Skin is warm and dry with evidence of good perfusion. Left posterior lateral chest wall incisions well approximated covered with dry intact Band-Aids. - Neurologic Neurologic: Present: CNII-XII intact - Musculoskeletal Musculoskeletal: Present: gait normal, strength equal bilaterally - Psychiatric Psychiatric: Present: A&O x's 3, appropriate affect, intact judgment & insight - Allied health notes Allied health notes reviewed: nursing - Labs CBC & Chem 7: 03/20/18 04:22 Labs: Abnormal Lab Results - Last 24 Hours (Table) 03/12/18 03/19/18 03/20/18 Range/Units 13:34 14:44 04:22 Hgb 11.3 L (11.4-16.0) gm/dL POC Glucose (mg/dL) 130 H (75-99) mg/dL Crossmatch See Detail - Imaging and Cardiology Chest x-ray: report reviewed, image reviewed Assessment and Plan (1) Squamous cell carcinoma Current Visit: Yes Status: Chronic Code(s): C44.92 - SQUAMOUS CELL CARCINOMA OF SKIN, UNSPECIFIED SNOMED Code(s): 568255041 (2) Status post pneumonectomy Current Visit: Yes Status: Acute Code(s): Z90.2 - ACQUIRED ABSENCE OF LUNG [ PART OF] SNOMED Code(s): 017943717 (3) History of coronary artery disease Current Visit: Yes Status: Chronic Code(s): Z86.79 - PERSONAL HISTORY OF OTHER DISEASES OF THE CIRCULATORY SYSTEM SNOMED Code(s): 037838925 (4) History of coronary artery bypass graft Current Visit: No Status: Resolved Code(s): Z95.1 - PRESENCE OF AORTOCORONARY BYPASS GRAFT SNOMED Code(s): 996791204 (5) Tobacco dependence in remission Current Visit: No Status: Resolved Code(s): F17.201 - NICOTINE DEPENDENCE, UNSPECIFIED, IN REMISSION SNOMED Code(s): 093692055 (6) Hypertension Current Visit: Yes Status: Chronic Code(s): I10 - ESSENTIAL (PRIMARY) HYPERTENSION SNOMED Code(s): 68593635 Plan: 1. Discontinue IV fluids, Combs catheter. 2. Wean O2 as tolerated. Encourage incentive spirometry use 10 times every hour. 3. Increase activity, ambulate in hallway. 4. Will monitor daily x-rays. 5. GI/DVT prophylaxis. 6. Pain control with current medications. 7. Bronchodilators per pulmonology. 8. Transfer orders placed for patient to go to [facility] when bed available. 9. More recommendations to follow. Time with Patient: Greater than 30
--- NOTE | 2018-03-20 10:37 | P.PN ---
Subjective Progress Note Date: 03/20/18 Principal diagnosis: Status post pneumonectomy postoperative day #1 Mrs. Torres is a 67-year-old white female patient of Dr. Santillan who Dr. Crandall saw in consultation on 02/10/2018 when the patient presented to the hospital with dyspnea, chest pain, hypoxemia, and the finding of a left upper lobe lung mass on the chest x-ray and CT of the chest. Patient has a history of previous nicotine dependence of [id number] smoking history, but quit many years ago. Patient was having left-sided chest discomfort, and shortness of breath on exertion. She underwent bronchoscopy with biopsies of the left upper lobe lung mass, and the pathology was positive for moderately differentiated squamous cell carcinoma. Patient underwent PET/CT scan which showed hypermetabolic uptake to biopsy-proven left hilar malignancy, but no suspicious adenopathy or metastatic disease. Outpatient PFT showed FEV1 of 49% of predicted, FVC 55% of predicted, DLCO of 69%, and this was consistent with a combined obstructive and restrictive airway disease, due to COPD, and parenchymal restriction secondary to left lung mass. Patient had a quantitative VQ scan which showed markedly diminished perfusion to the left lung most likely due to postobstructive atelectasis. Today patient underwent robotic-assisted left pneumonectomy by Dr. Quach, she seen in the intensive care postop, resting in bed, with her family at the bedside, awake alert, on her amount of pain the left chest surgical incision site. He is currently on 4 L per nasal cannula, with a pulse ox of 97%, borderline hypotensive, and her blood pressures in the 80s and 90s systolic/50s diastolic. Afebrile. She is awake alert, no evidence of altered mentation. He is currently on D5.45 at a rate of 40 ML per hour, no other drips. She was started on nebulized bronchodilators, ketorolac and tramadol for pain control. She is receiving antibiotics. Follow-up chest x-ray showed post pneumonectomy volume loss in the left hemithorax left hemidiaphragm is obscured. Patient was reevaluated today on 03/20/2018, doing well, relatively asymptomatic , doing well with incentive spirometry. Chest x-ray is reassuring. Postoperative findings on the left side, right side is clear. Labs were reviewed including his CBC and basic metabolic profile. Objective - Vital Signs Vital signs: Vital Signs Temp 98.0 F 03/20/18 08:00 Pulse 73 03/20/18 10:00 Resp 16 03/20/18 10:00 BP 102/47 03/20/18 10:00 Pulse Ox 97 03/20/18 10:00 Intake & Output 03/19/18 03/20/18 03/20/18 18:59 06:59 18:59 Intake Total 1620 2270 860 Output Total 565 440 180 Balance 1055 1830 680 Weight 88.451 kg 102.7 kg 102.7 kg Intake: IV 1100 1450 300 ACETAMINOPHEN IV (For NPO 100 ) 1,000 mg In Empty Bag 1 bag @ 400 mls/hr IVPB Q6HR PRN Rx#:[id number] Dextrose 5%-0.45% NaCl 1, 440 80 000 ml @ 40 mls/hr IV . Q24H JESSICA Rx#:[id number] Lactated Ringers 1,000 ml 910 20 @ 20 mls/hr IV .Q24H JESSICA Rx#:[id number] Magnesium Sulfate-D5w Pmx 200 1 gm In Dextrose/Water 1 100ml.bag @ 100 mls/hr IVPB Q1H JESSICA Rx#: [id number] Intake, IV Titration 160 40 Amount Dextrose 5%-0.45% NaCl 1, 160 40 000 ml @ 40 mls/hr IV . Q24H JESSICA Rx#:[id number] Oral 360 780 560 Output: Urine 490 440 180 Estimated Blood Loss 75 Other: Voiding Method Indwelling Catheter Indwelling Catheter Toilet ABP, PAP, CO, CI - Last Documented Arterial Blood Pressure 84/50 - Exam GENERAL EXAM: Alert, pleasant, 67-year-old white female, in no form of respiratory distress, and pain seems to be well-controlled. HEAD: Normocephalic/atraumatic. EYES: Normal reaction of pupils, equal size. Conjunctiva pink, sclera white. NOSE: Clear with pink turbinates. THROAT: No erythema or exudates. NECK: No masses, no JVD, no thyroid enlargement, no adenopathy. CHEST: Left chest incisions at the level of mid axilla at approximately fourth or fifth intercostal line and posterior left chest are covered with Band-Aids, clean dry and intact LUNGS: Absent lung sounds on the left, clear lung sounds on the right CVS: Regular rate and rhythm, normal S1 and S2, no gallops, no murmurs, no rubs ABDOMEN: Soft, nontender. No hepatosplenomegaly, normal bowel sounds, no guarding or rigidity. EXTREMITIES: No clubbing, no edema, no cyanosis, 2+ pulses and upper and lower extremities. MUSCULOSKELETAL: Muscle strength and tone normal. SPINE: No scoliosis or deformity SKIN: No rashes CENTRAL NERVOUS SYSTEM: Alert and oriented -3. No focal deficits, tone is normal in all 4 extremities. PSYCHIATRIC: Alert and oriented -3. Appropriate affect. Intact judgment and insight. - Labs CBC & Chem 7: 03/20/18 04:22 Labs: Abnormal Lab Results - Last 24 Hours (Table) 03/12/18 03/19/18 03/20/18 Range/Units 13:34 14:44 04:22 Hgb 11.3 L (11.4-16.0) gm/dL POC Glucose (mg/dL) 130 H (75-99) mg/dL Crossmatch See Detail Assessment and Plan Assessment: #1. Squamous cell carcinoma of the lung, patient was found to have a 4x4 cm mass in the left upper lobe that was completely occluding the left upper lobe bronchus and involved the distal left mainstem bronchus, biopsy-proven, PET scan from 02/21/2018 showed hypermetabolic uptake corresponding to the left hilar malignancy, but no metastatic disease. Status post robotic-assisted left pneumonectomy, postop day 0 #2. COPD, stable. Outpatient PFT showed FEV1 of 49% of predicted, FVC of 55% of predicted, and DLCO of 69% of predicted, and the patient had a combination of obstructive and restrictive pulmonary defect #3. History of remote nicotine dependence, [id number] smoking history, in remission #4. Coronary artery disease, status post coronary artery bypass grafting proximately 20 years ago #5. Hypertension, hyperlipidemia #6. Anxiety, depression #7. Recent urinary tract infection with urine culture positive for Enterococcus faecalis with jalloh susceptibility patient was treated with ciprofloxacin Recommendation: Continue incentive spirometry, early ambulation, bronchodilators , may transfer out of the ICU, doing great. Time with Patient: Less than 30
[2018-03-20 11:35] LABS: ALT 101 U/L (9-52); AST 79 U/L (14-36); Albumin 2.7 g/dL (3.5-5.0); Alkaline Phosphatase 82 U/L (38-126); Anion Gap 8 mmol/L; Blood Urea Nitrogen 15 mg/dL (7-17); Calcium 8.5 mg/dL (8.4-10.2); Carbon Dioxide 22 mmol/L (22-30); Chloride 105 mmol/L (98-107); Glucose 99 mg/dL (74-99); Potassium 4.3 mmol/L (3.5-5.1); Sodium 135 mmol/L (137-145); Total Bilirubin 0.3 mg/dL (0.2-1.3); Total Protein 5.2 g/dL (6.3-8.2)
[2018-03-20] MEDS ORDERED: MULTIVITAMINS, THERA 1 EACH TAB PO SCH (12:00)
--- NOTE | 2018-03-20 14:52 | P.CONS ---
History of Present Illness - Reason for Consult Consult date: 03/20/18 Medical management Requesting physician: Jimbo Quach - Chief Complaint Status post robotically assisted thorascopic left pneumonectomy - History of Present Illness This is a 67-year-old female who is found to have a left upper lobe lung mass in January 2018. Pathology reports showed evidence of a squama cell carcinoma. Patient had further workup completed outpatient and presented back to the hospital yesterday to have robotic-assisted left pneumonectomy. We have been consulted for medical management. She also has a past medical history of hypertension, hyperlipidemia and coronary artery disease with previous CABG in 1997. She also has a former smoking history and quit several years ago. Patient is currently in the ICU and likely be transferred out of the ICU later today. She admits to having some shortness of breath and is on 2 L satting at 97-98%. She denies any chest pain. She's been slightly hypotensive with blood pressure of 95/57. Blood pressure medications were held. Her pain is tolerable. She denies any nausea or vomiting. Denies any bowel movement changes or urinary symptoms. Combs catheter was removed this morning. She's sitting up at bedside chair. She has been up and ambulating. Review of Systems Please refer to HPI otherwise unremarkable Past Medical History Past Medical History: Cancer, Hyperlipidemia, Hypertension, Osteoarthritis (OA) Additional Past Medical History / Comment(s): recent dx. lung cancer, uses oxygen @2l PRN, gets SOB w/exertion, taking antibiotic for "sore throat" History of Any Multi-Drug Resistant Organisms: None Reported Past Surgical History: Cholecystectomy, Coronary Bypass/CABG, Heart Catheterization Additional Past Surgical History / Comment(s): triple bypass-1997 Past Anesthesia/Blood Transfusion Reactions: No Reported Reaction Smoking Status: Former smoker - Past Family History Brother(s) Family Medical History: Deep Vein Thrombosis (DVT) Medications and Allergies Home Medications Medication Instructions Recorded Confirmed Type ALPRAZolam [Xanax] 0.5 mg PO HS PRN 02/09/18 03/19/18 History Atorvastatin [Lipitor] 20 mg PO HS 02/09/18 03/19/18 History Cranberry Fruit Concentrate 450 mg PO DAILY 02/09/18 03/19/18 History [Cranberry] Ezetimibe [Zetia] 10 mg PO DAILY 02/09/18 03/19/18 History FLUoxetine HCL [PROzac] 20 mg PO DAILY 02/09/18 03/19/18 History Multivitamins, Thera [Multivitamin 1 tab PO DAILY 02/09/18 03/19/18 History (formulary)] Olmesartan/Hydrochlorothiazide 1 tab PO DAILY 02/09/18 03/19/18 History [Benicar Hct 40-12.5 mg Tablet] ALPRAZolam [Xanax] 0.5 mg PO BID #12 tab 02/13/18 03/19/18 Rx traMADol HCl [Ultram] 50 mg PO Q6H PRN #12 tab 02/13/18 03/19/18 Rx Amoxic-Pot Clav 500-125 mg 1 tab PO Q12HR 03/10/18 03/19/18 History [Augmentin 500-125 mg] Aspirin 81 mg PO DAILY 03/10/18 03/19/18 History Fluticasone/Salmeterol [Advair 1 inhalation PO RT-BID 03/10/18 03/19/18 History 250-50 Diskus] Ipratropium/Albuterol Sulfate 1 puff INHALATION RT-QID 03/10/18 03/19/18 History [Combivent Respimat Inhaler] Metoprolol Tartrate [Lopressor] 25 mg PO BID 03/10/18 03/19/18 History Garner-3 Fatty Acids/Fish Oil [Fish 1 cap PO DAILY 03/10/18 03/19/18 History Oil 1,000 mg Softgel] Zolpidem [Ambien] 10 mg PO HS PRN 03/11/18 03/19/18 History Allergies Allergy/AdvReac Type Severity Reaction Status Date / Time No Known Allergies Allergy Verified 03/10/18 07:47 Physical Exam Vitals: Vital Signs Temp Pulse Resp BP Pulse Ox 03/20/18 13:30 77 14 95/57 98 03/20/18 13:00 84 23 99/47 97 03/20/18 12:30 97.5 F L 69 15 104/52 97 03/20/18 12:00 76 18 102/52 97 03/20/18 11:39 69 03/20/18 11:30 76 19 113/55 98 03/20/18 11:00 75 19 100/47 96 03/20/18 10:30 68 19 97/48 97 03/20/18 10:00 73 16 102/47 97 03/20/18 09:30 73 15 113/51 96 03/20/18 09:00 71 16 106/54 97 03/20/18 08:36 70 03/20/18 08:30 69 15 103/52 98 03/20/18 08:26 72 03/20/18 08:15 67 96 03/20/18 08:00 98.0 F 67 10 L 105/62 97 03/20/18 07:30 72 15 104/59 97 03/20/18 07:00 69 22 91/57 97 03/20/18 06:30 74 21 94/45 97 03/20/18 06:00 71 14 102/53 96 03/20/18 05:30 72 23 84/45 97 03/20/18 05:00 62 16 105/53 97 03/20/18 04:30 98.0 F 78 22 83/41 97 03/20/18 04:00 63 18 80/42 97 03/20/18 03:30 62 14 81/44 98 03/20/18 03:00 63 14 81/44 97 03/20/18 02:30 63 16 77/44 97 03/20/18 02:00 64 16 72/41 97 03/20/18 01:30 64 18 96/48 97 03/20/18 01:00 76 18 89/49 97 03/20/18 00:30 97.8 F 65 18 80/42 97 03/20/18 00:00 67 16 75/39 98 03/19/18 23:30 66 16 81/42 98 03/19/18 23:00 68 16 80/48 98 03/19/18 22:30 68 15 73/46 99 03/19/18 22:00 66 16 87/48 98 03/19/18 21:30 68 14 91/41 98 03/19/18 21:00 67 16 81/46 97 03/19/18 20:30 75 24 86/43 98 03/19/18 20:00 97.5 F L 69 17 82/44 99 03/19/18 19:30 74 20 99 03/19/18 19:12 67 19 03/19/18 19:03 68 19 03/19/18 19:00 71 22 86/49 99 03/19/18 18:56 69 18 03/19/18 18:30 73 18 91/55 98 03/19/18 18:00 72 14 91/53 03/19/18 17:30 77 19 102/52 98 03/19/18 17:00 68 9 L 98/57 99 03/19/18 16:30 79 24 96/61 98 03/19/18 16:00 70 8 L 84/50 98 03/19/18 15:30 84 12 89/51 97 03/19/18 15:19 74 16 03/19/18 15:10 72 94/56 97 03/19/18 15:00 97.5 F L 79 90/56 97 03/19/18 14:50 71 97 03/19/18 14:42 79 89 L Intake and Output 03/19/18 03/20/18 03/20/18 22:59 06:59 14:59 Intake Total 1560 1230 1100 Output Total 200 380 180 Balance 1360 850 920 Intake: IV 640 810 300 ACETAMINOPHEN IV (For NPO 100 ) 1,000 mg In Empty Bag 1 bag @ 400 mls/hr IVPB Q6HR PRN Rx#:[id number] Dextrose 5%-0.45% NaCl 1, 120 320 80 000 ml @ 40 mls/hr IV . Q24H JESSICA Rx#:[id number] Lactated Ringers 1,000 ml 520 390 20 @ 20 mls/hr IV .Q24H JESSICA Rx#:[id number] Magnesium Sulfate-D5w Pmx 200 1 gm In Dextrose/Water 1 100ml.bag @ 100 mls/hr IVPB Q1H JESSICA Rx#: [id number] Intake, IV Titration 200 Amount Dextrose 5%-0.45% NaCl 1, 200 000 ml @ 40 mls/hr IV . Q24H JESSICA Rx#:[id number] Oral 720 420 800 Output: Urine 200 380 180 Other: Voiding Method Indwelling Catheter Indwelling Catheter Toilet Weight 88.451 kg 102.7 kg 102.7 kg Head normocephalic Neck supple Lungs no breath sounds on the left. Clear on the right Heart regular rate and rhythm S1-S2, no rub or gallop Abdomen is soft nontender nondistended positive bowel sounds no hepatosplenomegaly Extremities no edema Neuro alert and orientated to 3 Results CBC & Chem 7: 03/20/18 04:22 03/20/18 04:33 Labs: Abnormal Lab Results - Last 24 Hours (Table) 03/12/18 03/19/18 03/20/18 Range/Units 13:34 14:44 04:22 Hgb 11.3 L (11.4-16.0) gm/dL Sodium (137-145) mmol/L POC Glucose (mg/dL) 130 H (75-99) mg/dL AST (14-36) U/L ALT (9-52) U/L Total Protein (6.3-8.2) g/dL Albumin (3.5-5.0) g/dL Crossmatch See Detail 03/20/18 Range/Units 04:33 Hgb (11.4-16.0) gm/dL Sodium 135 L (137-145) mmol/L POC Glucose (mg/dL) (75-99) mg/dL AST 79 H (14-36) U/L ALT 101 H (9-52) U/L Total Protein 5.2 L (6.3-8.2) g/dL Albumin 2.7 L (3.5-5.0) g/dL Crossmatch Assessment and Plan Assessment: 1. Squamous cell carcinoma of the left lung with a mass in the left upper lobe that completely occluded the left upper lobe bronchus and involved the distal left mainstem bronchus. PET scan had shown no metastatic disease which was done on 02/21/2018. Patient is status post robotic-assisted left pneumonectomy postop day #1 2. History of COPD stable 3. History of coronary artery disease with previous coronary artery bypass grafting approximately 20 years ago 4. Essential hypertension: Patient has been having some hypotension blood pressure medications were held. Blood pressures are showing improvement. 5. Hyperlipidemia 6. Remote nicotine dependence. Quit smoking several years ago 7. Generalized anxiety disorder and depression 8. Mildly elevated LFTs: ALT 101 and AST 79 Discontinue the Lipitor and Zetia. Repeat LFTs in a.m. Also could be related to hypoperfusion from hypotension GI prophylaxis Protonix and DVT prophylaxis SCDs. Encouraged patient to use incentive spirometer and to increase activity Thank you for this consultation. We will continue to follow along with you during patient's admission Time with Patient: Greater than 30 (Greater than 60% of the total time spent in counseling and coordination of care.I performed an examination of the patient and discussed their management with the physician Tumbler Machine Operator. I have reviewed the Physician Tumbler Machine Operator's notes and agree with the documented findings and plan of care)
[2018-03-20] MEDS: LOSARTAN 50 MG TAB PO SCH (17:54)
[2018-03-20] MEDS: HYDROCHLOROTHIAZIDE 12.5 MG CAP PO SCH (17:54)
[2018-03-20] MEDS: METOPROLOL TARTRATE 25 MG TAB PO SCH ×2 (17:54→21:55)
[2018-03-20] MEDS: ALPRAZolam 0.5 MG TAB PO SCH ×2 (17:54→21:55)
[2018-03-21] MEDS: HEPARIN SODIUM,PORCINE 5,000 UNIT/ML 1 ML VIAL SQ SCH ×2 (00:21→08:44)
[2018-03-21] MEDS: traMADol 50 MG TAB PO PRN ×3 (00:21→11:39)
[2018-03-21] MEDS: KETOROLAC 30 MG/ML 1 ML VIAL IVP SCH ×3 (00:21→11:40)
[2018-03-21 05:00] LABS: HCT 34.4 % (34.0-46.0); HGB 11.1 gm/dL (11.4-16.0); MCH 29.7 pg (25.0-35.0); MCHC 32.2 g/dL (31.0-37.0); MCV 92.2 fL (80.0-100.0); Mean Platelet Volume 8.2; Platelet Count 170 k/uL (150-450); RBC 3.73 m/uL (3.80-5.40); RDW 13.8 % (11.5-15.5); WBC 9.2 k/uL (3.8-10.6)
[2018-03-21 05:14] LABS: Calcium 8.6 mg/dL (8.4-10.2); Magnesium 1.9 mg/dL (1.6-2.3); Potassium 4.4 mmol/L (3.5-5.1); Total Bilirubin 0.3 mg/dL (0.2-1.3); Total Protein 5.6 g/dL (6.3-8.2)
[2018-03-21 05:51] VITALS: TEMP 97.7
--- NOTE | 2018-03-21 07:55 | XR ---
EXAMINATION TYPE: XR chest 2V DATE OF EXAM: 03/21/2018 COMPARISON: Prior chest 03/20/2018 HISTORY: Postpneumonectomy TECHNIQUE: Frontal and lateral views of the chest are obtained. FINDINGS: Postpneumonectomy change again noted in the left hemithorax, there is an air-fluid level. There are overlying cardiac leads. Patient is post median sternotomy, there is volume loss. Heart is obscured. IMPRESSION: Satisfactory postoperative chest x-ray.
[2018-03-21] MEDS: IPRATROPIUM-ALBUTEROL 3 ML NEB IH SCH ×2 (08:23→11:45)
[2018-03-21] MEDS: FORMOTEROL FUMARATE 20 MCG/2 ML NEBU INHALATION SCH (08:23)
[2018-03-21] MEDS: METOPROLOL TARTRATE 25 MG TAB PO SCH (08:43)
[2018-03-21] MEDS: MAGNESIUM SULFATE-D5W PMX 1 GM in DEXTROSE/WATER 1 100ML.BAG IVPB SCH ×2 (08:43→10:21)
[2018-03-21] MEDS: ASPIRIN 81 MG PO SCH (08:44)
[2018-03-21] MEDS: FLUoxetine HCL 20 MG CAP PO SCH (08:44)
[2018-03-21] MEDS: PANTOPRAZOLE 40 MG TABLET PO SCH (08:44)
[2018-03-21] MEDS: HYDROCHLOROTHIAZIDE 12.5 MG CAP PO SCH (08:44)
[2018-03-21] MEDS: ALPRAZolam 0.5 MG TAB PO SCH (08:45)
[2018-03-21] MEDS: SENNOSIDES 8.6 MG TAB PO SCH (08:48)
[2018-03-21] MEDS: LOSARTAN 50 MG TAB PO SCH (08:48)
--- NOTE | 2018-03-21 08:50 | P.PN ---
Subjective Progress Note Date: 03/21/18 Principal diagnosis: Lung cancer, squamous cell carcinoma, left upper lobe extending into the left mainstem bronchus. Previous medical history of coronary artery disease with coronary artery bypass surgery proximally 20 years ago, hypertension, hyperlipidemia, COPD, and previous tobacco dependence. POD #2 robotically assisted thoracoscopic left pneumonectomy with mediastinal lymph node dissection. Patient is currently sitting up in the chair in no acute distress. States pain is controlled, does complain of shortness of breath with exertion. She has ambulated in the hallway. States she feels ready to go home today. Objective - Vital Signs Vital signs: Vital Signs Temp 97.7 F 03/21/18 04:00 Pulse 81 03/21/18 08:36 Resp 16 03/21/18 06:00 BP 115/53 03/21/18 04:00 Pulse Ox 97 03/21/18 06:00 Intake & Output 03/20/18 03/21/18 03/21/18 18:59 06:59 18:59 Intake Total 1700 420 Output Total 480 830 Balance 1220 -410 Weight 102.7 kg 103.5 kg Intake: IV 300 20 0.9 NaCl- for PIVL flush 20 Dextrose 5%-0.45% NaCl 1, 80 000 ml @ 40 mls/hr IV . Q24H JESSICA Rx#:[id number] Lactated Ringers 1,000 ml 20 @ 20 mls/hr IV .Q24H JESSICA Rx#:[id number] Magnesium Sulfate-D5w Pmx 200 1 gm In Dextrose/Water 1 100ml.bag @ 100 mls/hr IVPB Q1H JESSICA Rx#: [id number] Oral 1400 400 Output: Urine 480 830 Other: Voiding Method Toilet Toilet ABP, PAP, CO, CI - Last Documented Arterial Blood Pressure 84/50 - Constitutional General appearance: Present: cooperative, no acute distress, obese - Respiratory Details: Lungs sounds diminished on the left. Respirations even, nonlabored. Currently on 2 L nasal cannula with oxygen saturation 98%. Able to achieve 1250 mL on her incentive spirometry. Effective cough. - Cardiovascular Details: S1, S2 present. Regular rate and rhythm, sinus rhythm on telemetry. Palpable peripheral pulses bilaterally. No edema present. No calf pain or tenderness noted. SCDs present. - Gastrointestinal Gastrointestinal Comment(s): Abdomen soft, nontender, nondistended. Active bowel sounds 4 quadrants. Tolerating diet. Positive flatus. - Genitourinary Genitourinary Comment(s): Continues to void clear, yellow urine. - Integumentary Integumentary Comment(s): Skin is warm and dry with evidence of good perfusion. Left posterior lateral chest wall incisions well approximated covered with dry intact Band-Aids. - Neurologic Neurologic: Present: CNII-XII intact - Musculoskeletal Musculoskeletal: Present: gait normal, strength equal bilaterally - Psychiatric Psychiatric: Present: A&O x's 3, appropriate affect, intact judgment & insight - Allied health notes Allied health notes reviewed: nursing - Labs CBC & Chem 7: 03/21/18 04:25 03/21/18 04:25 Labs: Abnormal Lab Results - Last 24 Hours (Table) 03/20/18 03/21/18 03/21/18 Range/Units 04:33 04:25 04:25 RBC 3.73 L (3.80-5.40) m/uL Hgb 11.1 L (11.4-16.0) gm/dL Sodium 135 L 135 L (137-145) mmol/L Glucose 105 H (74-99) mg/dL AST 79 H 53 H (14-36) U/L ALT 101 H 62 H (9-52) U/L Total Protein 5.2 L 5.6 L (6.3-8.2) g/dL Albumin 2.7 L 3.0 L (3.5-5.0) g/dL - Imaging and Cardiology Chest x-ray: report reviewed, image reviewed Assessment and Plan (1) Squamous cell carcinoma Current Visit: Yes Status: Chronic Code(s): C44.92 - SQUAMOUS CELL CARCINOMA OF SKIN, UNSPECIFIED SNOMED Code(s): 964207290 (2) Status post pneumonectomy Current Visit: Yes Status: Acute Code(s): Z90.2 - ACQUIRED ABSENCE OF LUNG [ PART OF] SNOMED Code(s): 853251347 (3) History of coronary artery disease Current Visit: Yes Status: Chronic Code(s): Z86.79 - PERSONAL HISTORY OF OTHER DISEASES OF THE CIRCULATORY SYSTEM SNOMED Code(s): 295987436 (4) History of coronary artery bypass graft Current Visit: No Status: Resolved Code(s): Z95.1 - PRESENCE OF AORTOCORONARY BYPASS GRAFT SNOMED Code(s): 461227935 (5) Tobacco dependence in remission Current Visit: No Status: Resolved Code(s): F17.201 - NICOTINE DEPENDENCE, UNSPECIFIED, IN REMISSION SNOMED Code(s): 352353068 (6) Hypertension Current Visit: Yes Status: Chronic Code(s): I10 - ESSENTIAL (PRIMARY) HYPERTENSION SNOMED Code(s): 06679432 Plan: 1. Wean O2 as tolerated, patient does use oxygen at home. Encourage incentive spirometry use 10 times every hour. 2. Increase activity, ambulate in hallway. 3. GI/DVT prophylaxis. 4. Pain control with current medications. 5. Bronchodilators per pulmonology. 6. Will discharge to home. Follow-up appointment made for Dr. Quach and Dr. Crandall. Patient is to have chest x-ray completed prior to appointment with Dr. Quach. Time with Patient: Greater than 30
[2018-03-21 09:21] VITALS: BP 118/58; RESP 18
--- NOTE | 2018-03-21 10:50 | P.PN ---
Subjective Progress Note Date: 03/21/18 Principal diagnosis: Status post pneumonectomy postoperative day #2 Mrs. Torres is a 67-year-old white female patient of Dr. Santillan who Dr. Crandall saw in consultation on 02/10/2018 when the patient presented to the hospital with dyspnea, chest pain, hypoxemia, and the finding of a left upper lobe lung mass on the chest x-ray and CT of the chest. Patient has a history of previous nicotine dependence of [id number] smoking history, but quit many years ago. Patient was having left-sided chest discomfort, and shortness of breath on exertion. She underwent bronchoscopy with biopsies of the left upper lobe lung mass, and the pathology was positive for moderately differentiated squamous cell carcinoma. Patient underwent PET/CT scan which showed hypermetabolic uptake to biopsy-proven left hilar malignancy, but no suspicious adenopathy or metastatic disease. Outpatient PFT showed FEV1 of 49% of predicted, FVC 55% of predicted, DLCO of 69%, and this was consistent with a combined obstructive and restrictive airway disease, due to COPD, and parenchymal restriction secondary to left lung mass. Patient had a quantitative VQ scan which showed markedly diminished perfusion to the left lung most likely due to postobstructive atelectasis. Today patient underwent robotic-assisted left pneumonectomy by Dr. Quach, she seen in the intensive care postop, resting in bed, with her family at the bedside, awake alert, on her amount of pain the left chest surgical incision site. He is currently on 4 L per nasal cannula, with a pulse ox of 97%, borderline hypotensive, and her blood pressures in the 80s and 90s systolic/50s diastolic. Afebrile. She is awake alert, no evidence of altered mentation. He is currently on D5.45 at a rate of 40 ML per hour, no other drips. She was started on nebulized bronchodilators, ketorolac and tramadol for pain control. She is receiving antibiotics. Follow-up chest x-ray showed post pneumonectomy volume loss in the left hemithorax left hemidiaphragm is obscured. Patient was reevaluated today on 03/20/2018, doing well, relatively asymptomatic , doing well with incentive spirometry. Chest x-ray is reassuring. Postoperative findings on the left side, right side is clear. Labs were reviewed including his CBC and basic metabolic profile. Reevaluated today on 03/21/2018, doing well, remains interested dramatic, doing well with incentive spirometry, chest x-ray is showing postoperative changes on the left side, otherwise unremarkable. Labs were reviewed and they were noted to be normal. Patient is actually clear to be discharged home today. Objective - Vital Signs Vital signs: Vital Signs Temp 97.7 F 03/21/18 04:00 Pulse 72 03/21/18 08:47 Resp 18 03/21/18 08:47 BP 118/58 03/21/18 08:47 Pulse Ox 94 L 03/21/18 08:47 Intake & Output 03/20/18 03/21/18 03/21/18 18:59 06:59 18:59 Intake Total 1700 420 300 Output Total 480 830 Balance 1220 -410 300 Weight 102.7 kg 103.5 kg Intake: IV 300 20 0.9 NaCl- for PIVL flush 20 Dextrose 5%-0.45% NaCl 1, 80 000 ml @ 40 mls/hr IV . Q24H JESSICA Rx#:[id number] Lactated Ringers 1,000 ml 20 @ 20 mls/hr IV .Q24H JESSICA Rx#:[id number] Magnesium Sulfate-D5w Pmx 200 1 gm In Dextrose/Water 1 100ml.bag @ 100 mls/hr IVPB Q1H JESSICA Rx#: [id number] Intake, IV Titration 100 Amount Magnesium Sulfate-D5w Pmx 100 1 gm In Dextrose/Water 1 100ml.bag @ 100 mls/hr IVPB Q1H JESSICA Rx#: [id number] Oral 1400 400 200 Output: Urine 480 830 Other: Voiding Method Toilet Toilet Toilet ABP, PAP, CO, CI - Last Documented Arterial Blood Pressure 84/50 - Exam GENERAL EXAM: Alert, pleasant, 67-year-old white female, in no form of respiratory distress, and pain seems to be well-controlled. HEAD: Normocephalic/atraumatic. EYES: Normal reaction of pupils, equal size. Conjunctiva pink, sclera white. NOSE: Clear with pink turbinates. THROAT: No erythema or exudates. NECK: No masses, no JVD, no thyroid enlargement, no adenopathy. CHEST: Left chest incisions at the level of mid axilla at approximately fourth or fifth intercostal line and posterior left chest are covered with Band-Aids, clean dry and intact LUNGS: Absent lung sounds on the left, clear lung sounds on the right CVS: Regular rate and rhythm, normal S1 and S2, no gallops, no murmurs, no rubs ABDOMEN: Soft, nontender. No hepatosplenomegaly, normal bowel sounds, no guarding or rigidity. EXTREMITIES: No clubbing, no edema, no cyanosis, 2+ pulses and upper and lower extremities. MUSCULOSKELETAL: Muscle strength and tone normal. SPINE: No scoliosis or deformity SKIN: No rashes CENTRAL NERVOUS SYSTEM: Alert and oriented -3. No focal deficits, tone is normal in all 4 extremities. PSYCHIATRIC: Alert and oriented -3. Appropriate affect. Intact judgment and insight. - Labs CBC & Chem 7: 03/21/18 04:25 03/21/18 04:25 Labs: Abnormal Lab Results - Last 24 Hours (Table) 03/20/18 03/21/18 03/21/18 Range/Units 04:33 04:25 04:25 RBC 3.73 L (3.80-5.40) m/uL Hgb 11.1 L (11.4-16.0) gm/dL Sodium 135 L 135 L (137-145) mmol/L Glucose 105 H (74-99) mg/dL AST 79 H 53 H (14-36) U/L ALT 101 H 62 H (9-52) U/L Total Protein 5.2 L 5.6 L (6.3-8.2) g/dL Albumin 2.7 L 3.0 L (3.5-5.0) g/dL Assessment and Plan Assessment: #1. Squamous cell carcinoma of the lung, patient was found to have a 4x4 cm mass in the left upper lobe that was completely occluding the left upper lobe bronchus and involved the distal left mainstem bronchus, biopsy-proven, PET scan from 02/21/2018 showed hypermetabolic uptake corresponding to the left hilar malignancy, but no metastatic disease. Status post robotic-assisted left pneumonectomy, postop day #2 #2. COPD, stable. Outpatient PFT showed FEV1 of 49% of predicted, FVC of 55% of predicted, and DLCO of 69% of predicted, and the patient had a combination of obstructive and restrictive pulmonary defect #3. History of remote nicotine dependence, [id number] smoking history, in remission #4. Coronary artery disease, status post coronary artery bypass grafting proximately 20 years ago #5. Hypertension, hyperlipidemia #6. Anxiety, depression #7. Recent urinary tract infection with urine culture positive for Enterococcus faecalis with jalloh susceptibility patient was treated with ciprofloxacin Recommendation: Continue incentive spirometry, continue ambulation, agree with discharge planning today. Up with Dr. Crandall as scheduled sometime in the next 2 weeks Time with Patient: Less than 30
--- NOTE | 2018-03-21 11:35 | P.DS ---
Providers Date of admission: 03/19/18 05:49 Expected date of discharge: 03/21/18 Attending physician: Jimbo Quach Consults: 03/19/18 12:43 Consult Physician Routine Consulting Provider: Aguilar Roper Consult Reason/Comments: post pneumonectomy Do you want consulting provider notified?: Yes Consult Physician Routine Consulting Provider: Gregoria Santillan Consult Reason/Comments: medical managent Do you want consulting provider notified?: Yes Primary care physician: Gregoria Santillan - Discharge Diagnosis(es) (1) Squamous cell carcinoma Current Visit: Yes Status: Chronic (2) Status post pneumonectomy Current Visit: Yes Status: Acute (3) History of coronary artery disease Current Visit: Yes Status: Chronic (4) History of coronary artery bypass graft Current Visit: No Status: Resolved (5) Tobacco dependence in remission Current Visit: No Status: Resolved (6) Hypertension Current Visit: Yes Status: Chronic Hospital Course: FINAL DIAGNOSIS: 1. Lung cancer, squamous cell carcinoma, left upper lobe extending into the left mainstem bronchus 2. History of coronary artery disease with coronary artery bypass surgery approximately 20 years ago 3. Hypertension 4. Hyperlipidemia 5. COPD 6. Previous tobacco dependence PRINCIPAL PROCEDURE: 1. Robotically assisted thoracoscopic left pneumonectomy with mediastinal lymph node dissection HISTORY OF PRESENT ILLNESS: This is a 67-year-old patient of Dr. Santillan's who presented with worsening shortness of breath which had taken place over the previous several months. She was placed on inhalers without relief. She has been found to be hypoxic and placed on home oxygen therapy. Chest x-ray completed demonstrated left upper lobe complete atelectasis. Computed tomography scan was performed demonstrating a tumor in the left upper lobe bronchus involving the distal left mainstem bronchus and completely obstructing the left upper lobe. She underwent a fiberoptic bronchoscopy and was diagnosed with squamous cell carcinoma. Subsequently she underwent PET scanning with no evidence of metastasis. The patient was referred to Dr. Quach from cardiothoracic surgery. She was recommended to undergo robotic-assisted thoracoscopic left pneumonectomy. All risks and benefits were explained in detail to the patient and her family, all questions were answered, and consent was obtained to proceed with surgery. She obtained cardiology clearance prior to surgery. HOSPITAL COURSE: The patient was brought to the hospital on 03/19/2018, taken to the preoperative area, prepared in the usual fashion, and subsequently taken to the operating room where Dr. Quach performed a robotically assisted thoracoscopic left pneumonectomy with mediastinal lymph node dissection. Upon completion of surgery the patient was extubated, taken to the recovery room where she was recovered, monitored hemodynamically, and where she was eventually admitted to ICU for further monitoring and rehabilitation. Her oxygen was titrated down, her postoperative x-rays were stable, she was ambulatory in the hallway and tolerating oral diet, her pain was controlled, and she was ready to be discharged to home on postoperative day #2. She received written and verbal instruction regarding her medications, activity restrictions, signs and symptoms requiring physician notification, and follow- up appointments with a prescription for an x-ray to be taken prior to her follow -up appointment with Dr. Quach. COMPLICATIONS: The patient experienced no postoperative complications. Patient Condition at Discharge: Stable Plan - Discharge Summary Discharge Rx Participant: Yes New Discharge Prescriptions: New Sennosides [Senokot] 8.6 mg PO DAILY tab Continue FLUoxetine HCL [PROzac] 20 mg PO DAILY Atorvastatin [Lipitor] 20 mg PO HS ALPRAZolam [Xanax] 0.5 mg PO HS PRN PRN Reason: Anxiety Olmesartan/Hydrochlorothiazide [Benicar Hct 40-12.5 mg Tablet] 1 tab PO DAILY Ezetimibe [Zetia] 10 mg PO DAILY Multivitamins, Thera [Multivitamin (formulary)] 1 tab PO DAILY Cranberry Fruit Concentrate [Cranberry] 450 mg PO DAILY ALPRAZolam [Xanax] 0.5 mg PO BID #12 tab Ipratropium/Albuterol Sulfate [Combivent Respimat Inhaler] 1 puff INHALATION RT-QID Aspirin 81 mg PO DAILY Metoprolol Tartrate [Lopressor] 25 mg PO BID Fluticasone/Salmeterol [Advair 250-50 Diskus] 1 inhalation PO RT-BID Butte-3 Fatty Acids/Fish Oil [Fish Oil 1,000 mg Softgel] 1 cap PO DAILY Zolpidem [Ambien] 10 mg PO HS PRN PRN Reason: Insomnia traMADol HCl [Ultram] 50 mg PO Q6H PRN #20 tab PRN Reason: Moderate Pain Discontinued Amoxic-Pot Clav 500-125 mg [Augmentin 500-125 mg] 1 tab PO Q12HR Discharge Medication List ALPRAZolam [Xanax] 0.5 mg PO HS PRN 02/09/18 [History] Atorvastatin [Lipitor] 20 mg PO HS 02/09/18 [History] Cranberry Fruit Concentrate [Cranberry] 450 mg PO DAILY 02/09/18 [History] Ezetimibe [Zetia] 10 mg PO DAILY 02/09/18 [History] FLUoxetine HCL [PROzac] 20 mg PO DAILY 02/09/18 [History] Multivitamins, Thera [Multivitamin (formulary)] 1 tab PO DAILY 02/09/18 [History ] Olmesartan/Hydrochlorothiazide [Benicar Hct 40-12.5 mg Tablet] 1 tab PO DAILY [History] ALPRAZolam [Xanax] 0.5 mg PO BID #12 tab 02/13/18 [Rx] Aspirin 81 mg PO DAILY 03/10/18 [History] Fluticasone/Salmeterol [Advair 250-50 Diskus] 1 inhalation PO RT-BID 03/10/18 [ History] Ipratropium/Albuterol Sulfate [Combivent Respimat Inhaler] 1 puff INHALATION RT- QID 03/10/18 [History] Metoprolol Tartrate [Lopressor] 25 mg PO BID 03/10/18 [History] Butte-3 Fatty Acids/Fish Oil [Fish Oil 1,000 mg Softgel] 1 cap PO DAILY [History] Zolpidem [Ambien] 10 mg PO HS PRN 03/11/18 [History] Sennosides [Senokot] 8.6 mg PO DAILY tab 03/21/18 [Rx] traMADol HCl [Ultram] 50 mg PO Q6H PRN #20 tab 03/21/18 [Rx] Follow up Appointment(s)/Referral(s): Jimbo Quach MD [STAFF PHYSICIAN] - 04/02/18 12:30 pm Russell Crandall DO [Doctor of Osteopathic Medicine] - 04/03/18 2:00 pm Gregoria Santillan MD [Primary Care Provider] - 1 Week (Not open, patient to call and make appointment. ) Ambulatory/Diagnostic Orders: XR chest 2V [RAD.AMB] Time Frame: 04/02/18, Facility: [facility], Location: [facility] Activity/Diet/Wound Care/Special Instructions: DISCHARGE INSTRUCTIONS: 1. No driving for 2 weeks, or until physician gives their ok. 2. The patient should sleep in their own bed, no medical bed needed. 3. Stairs are not an issue. If the bedroom is upstairs, it is advised that the patient go up at night and down in the morning for the first week. Go slowly, using handrail and take 1 step at a time. 4. No lifting, pushing, or pulling more than 10 pounds for 2 weeks. The physician will advise of any restriction changes. 5. The patient is expected to continue the prescribed walking program. 6. Continue pain control per as needed orders. 7. Continue with incentive spirometry and splinting until otherwise directed by the physician. 8. Must shower daily using liquid antibacterial soap. 9. Routine incision care. No powders, lotions, ointments on incisions. 10. Please call surgeon/SHEET WRITER for temp greater than 101 F or purulent drainage from incisions. 11. Narcotic medications were discussed with the patient, including the potential for misuse, addiction, and abuse. Opiod Start Talking form was reviewed with the patient. 12. Please have x-ray completed at the hospital prior to follow-up physician appointment. Discharge Disposition: HOME SELF-CARE
[2018-03-21 11:48] VITALS: PULSE 80
--- NOTE | 2018-03-26 10:31 | CDI ---
Last Revision, August 2017 Documentation Clarification Form Date: 03/26/2018 12:00:00 AM From: Annamarie Lema RN, CCDS Admit Date: 03/19/2018 5:49:00 AM Patient Name: Maria C Torres Visit Number: [id number] Discharge Date: ATTENTION: The Clinical Documentation Specialists (CDI) and [facility] Coding Staff appreciate your assistance in clarifying documentation. Please respond to the clarification below the line at the bottom and electronically sign. The CDI & [facility] Coding staff will review the response and follow-up if needed. Please note: Queries are made part of the Legal Health Record. If you have any questions, please contact the author of this message via ITS. Dr. Jimbo Quach Hypotension is documented in the progress notes on 03/20/18 and ongoing notes as borderline hypotension. History/Risk Factors: Hypertension, COPD, Squamous cell carcinoma left lung. Clinical Indicators: He blood pressures in the 80s and 90s systolic/50s diastolic. She is awake alert, no evidence of altered mentation. Patients B/P: 87/48 66 16, 94/45 74 21, 91/57 69 22, Labs: WBC 9.9, HGB 11.3, Treatment: DB.45 at a rate of 40 mls/hr. no drips. Blood pressure medications were held In your professional opinion, can you please specify the etiology of the hypotension if known and clarify any clinical significance Iatrogenic Hypotension Idiopathic Hypotension Drug Induced Hypotension Chronic Hypotension Postoperative Hypotension Other Condition, please specify Unable to determine Please continue to document in your progress notes and discharge summary in order to capture severity of illness and risk of mortality. Include clinical findings that support your diagnosis. Hypotension was relative, and consistent with patients normal BP This patient's "hypotension" was inconsequential, and upon looking at previous admission in 01/2018 patient had episodes of hypotension with systolic bp occasionally in the 90s as well. This was not treated, she went home on the same medications she had been taking prior to admission, therefore we don't feel it's appropriate to add this to the discharge summary. LUISITOD
== END 2018-03-21 12:02 | disposition home or self-care (01) | DRG 165 ==
LOC: 2ORMAIN 05:49 → 6ICU 12:54
PROVIDERS: ADMIT Thoracic Surgery (Cardiothoracic Vascular Surgery); ATTEND Thoracic Surgery (Cardiothoracic Vascular Surgery)
PROC: 07T74ZZ Resection of Thorax Lymphatic, Percutaneous Endoscopic Approach (ICD-10-PCS; 2018-03-19)
PROC: 8E0W4CZ Robotic Assisted Procedure of Trunk Region, Percutaneous Endoscopic Approach (ICD-10-PCS; 2018-03-19)
PROC: 0BT Respiratory System, Resection (ICD-10-PCS; principal; 2018-03-19 07:30)
DX: C34.12 Malignant neoplasm of upper lobe, left bronchus or lung (principal); J44.9 Chronic obstructive pulmonary disease, unspecified; F17.201 Nicotine dependence, unspecified, in remission; I25.10 Atherosclerotic heart disease of native coronary artery without angina pectoris; I10 Essential (primary) hypertension; E78.00 Pure hypercholesterolemia, unspecified; E78.5 Hyperlipidemia, unspecified; R09.02 Hypoxemia; F32.9 Major depressive disorder, single episode, unspecified; F41.1 Generalized anxiety disorder; M19.91 Primary osteoarthritis, unspecified site; Z68.38 Body mass index [BMI] 38.0-38.9, adult; Z99.81 Dependence on supplemental oxygen; Z79.82 Long term (current) use of aspirin; Z79.51 Long term (current) use of inhaled steroids; Z79.899 Other long term (current) drug therapy; Z95.1 Presence of aortocoronary bypass graft; Z87.440 Personal history of urinary (tract) infections; Z90.49 Acquired absence of other specified parts of digestive tract; Z82.49 Family history of ischemic heart disease and other diseases of the circulatory system; Z84.1 Family history of disorders of kidney and ureter; Z83.3 Family history of diabetes mellitus; Z83.2 Family history of diseases of the blood and blood-forming organs and certain disorders involving the immune mechanism
CPT/HCPCS: 36415; 71045; 71046; 80053; 81001; 83735; 84100; 85025; 85027; 86850; 86900; 86901; 86920; 87086; 88305; 88309; 88331; 94640

== ENCOUNTER → 2018-07-21 | Outpatient (CLI) | payer MEDICARE, OTHER ==
[2018-07-21 08:15] LABS: Blood Urea Nitrogen 7 mg/dL (7-17)
--- NOTE | 2018-07-21 08:53 | CT ---
EXAMINATION TYPE: CT chest w con DATE OF EXAM: 07/21/2018 COMPARISON: 02/09/2018 HISTORY: Malignant neoplasm of XENIA CT DLP: 482.6 mGycm Automated exposure control for dose reduction was used. CONTRAST: CT scan of the chest is performed with IV Contrast, patient injected with 100 mL of Isovue 300. FINDINGS: LUNGS: There is been total left-sided pneumonectomy in the interval. Fluid fills the left lung cavity . There is hyperinflation of the right lung. No right-sided pulmonary nodule or mass is identified. N o evidence for recurrent left-sided disease. MEDIASTINUM: There are no greater than 1 cm hilar or mediastinal lymph nodes. No pericardial effusi on is seen. Thoracic aorta is of normal caliber. The heart is not enlarged. UPPER ABDOMEN: There is mild hepatic steatosis. Cholecystectomy clips are in place. OTHER: No additional significant abnormality is seen. IMPRESSION: 1. Interval left-sided pneumonectomy change without evidence for recurrent or residual disease at thi s time.
== END | disposition home or self-care (01) ==
LOC: RADPROMAIN 07:35
PROVIDERS: ATTEND Radiology Radiation Oncology
DX: Z08 Encounter for follow-up examination after completed treatment for malignant neoplasm (principal); Z98.890 Other specified postprocedural states; Z87.891 Personal history of nicotine dependence; Z85.118 Personal history of other malignant neoplasm of bronchus and lung
CPT/HCPCS: 82565; 84520; 71260; 36415; Q9967

== ENCOUNTER 2018-07-31 11:10 | Day surgery (SDC) | payer MEDICARE, OTHER ==
[2018-07-30 14:35] VITALS: BMI 33.6
[~2018-07-31 11:10] MED LIST changes: +HYDROmorphone 0.5 MG/0.5 ML SYRINGE IVP PRN; -Pre Op ABX Message 1 EACH MISC MISCELLANE ONE; -fentaNYL (PF) 50 MCG/ML 2 ML AMP IV PRN
--- NOTE | 2018-07-31 11:22 | P.GSHP ---
History of Present Illness H&P Date: 07/31/18 Chief Complaint: Lung cancer Patient coming to the hospital today for Port-A-Cath removal. Patient is recently completed her chemotherapy. She is to start radiation therapy in the near future. She is having discomfort at the site of the Port-A-Cath. She would like to have the port removed at this time. Past Medical History Past Medical History: Cancer, Hyperlipidemia, Hypertension, Osteoarthritis (OA) Additional Past Medical History / Comment(s): recent dx. lung cancer-last dose chemo Jun-starts radiation 08-03-18, fatigue,steroids Jun 2018 History of Any Multi-Drug Resistant Organisms: None Reported Past Surgical History: Cholecystectomy, Coronary Bypass/CABG, Heart Catheterization Additional Past Surgical History / Comment(s): lt lung removed ,triple bypass-1997 Past Anesthesia/Blood Transfusion Reactions: No Reported Reaction Smoking Status: Former smoker - Past Family History Brother(s) Family Medical History: Deep Vein Thrombosis (DVT) Medications and Allergies Home Medications Medication Instructions Recorded Confirmed Type ALPRAZolam [Xanax] 0.5 mg PO BID PRN 02/09/18 07/30/18 History Atorvastatin [Lipitor] 20 mg PO HS 02/09/18 07/30/18 History Cranberry Fruit Concentrate 450 mg PO DAILY 02/09/18 07/30/18 History [Cranberry] Ezetimibe [Zetia] 10 mg PO DAILY 02/09/18 07/30/18 History FLUoxetine HCL [PROzac] 20 mg PO DAILY 02/09/18 07/30/18 History Multivitamins, Thera [Multivitamin 1 tab PO DAILY 02/09/18 07/30/18 History (formulary)] Olmesartan/Hydrochlorothiazide 1 tab PO QAM 02/09/18 07/30/18 History [Benicar Hct 40-12.5 mg Tablet] Aspirin 81 mg PO DAILY 03/10/18 07/30/18 History Fluticasone/Salmeterol [Advair 1 inhalation PO RT-BID 03/10/18 07/30/18 History 250-50 Diskus] Ipratropium/Albuterol Sulfate 1 puff INHALATION RT-QID 03/10/18 07/30/18 History [Combivent Respimat Inhaler] Metoprolol Tartrate [Lopressor] 25 mg PO BID 03/10/18 07/30/18 History traMADol HCl [Ultram] 50 mg PO Q6H PRN #20 tab 03/21/18 07/30/18 Rx Allergies Allergy/AdvReac Type Severity Reaction Status Date / Time adhesive tape Allergy blistered Verified 07/30/18 14:23 skin/paper tape is ok Surgical - Exam Physical exam: General: Well-developed, well-nourished HEENT: Normocephalic, sclerae nonicteric Abdomen: Nontender, nondistended Extremities: No edema Neuro: Alert and oriented Assessment and Plan (1) Pulmonary mass Narrative/Plan: Will proceed with Port-A-Cath or removal at this time. Risks of bleeding, infection, scarring reviewed. She understands wished to proceed. Current Visit: No Status: Acute Code(s): R91.8 - OTHER NONSPECIFIC ABNORMAL FINDING OF LUNG FIELD SNOMED Code(s): 521084076
[2018-07-31 11:51] VITALS: RESP 16; TEMP 96.8
[2018-07-31] MEDS ORDERED: LIDOCAINE 1% INJ 10MG/ML (20 ML MDV) SQ ONE ×2 (13:17)
[2018-07-31] MEDS ORDERED: MIDAZOLAM 2 MG/2 ML VIAL ONE (13:18)
[2018-07-31] MEDS ORDERED: KETAMINE 10 MG/ML 20 ML VIAL ONE (13:18)
[2018-07-31] MEDS ORDERED: PROPOFOL 10 MG/ML 20 ML VIAL IV ONE (13:18)
[2018-07-31] MEDS ORDERED: fentaNYL (PF) 50 MCG/ML 2 ML AMP ONE (13:18)
[2018-07-31] MEDS ORDERED: HYDROcodone/APAP 5-325MG 1 EACH TAB PO PRN (13:39)
[2018-07-31] MEDS ORDERED: NALOXONE 0.4 MG/ML 1 ML VIAL IV PRN (13:39)
--- NOTE | 2018-07-31 13:41 | P.OP ---
Date of Procedure: 07/31/18 Procedure(s) Performed: PREOPERATIVE DIAGNOSIS: Lung cancer POSTOPERATIVE DIAGNOSIS: Same PROCEDURE: Port-A-Cath removal SURGEON: Yassine EBL: Minimal ANESTHESIA: Sedation COMPLICATIONS: None OPERATIVE PROCEDURE: Patient was placed in the supine position. The patient was sedated per anesthesia that time. The chest was prepped and draped in the usual sterile fashion. The skin was localized with Marcaine solution. The previous incision was re-incised using a scalpel. The port was easily excised using accommodation of blunt dissection sharp dissection and electrocautery. The subcutaneous tissues were reapproximated using 3-0 Vicryl sutures. The skin was reapproximated using 4-0 Monocryl sutures. Skin glue and sterile dressings were then applied. DISPOSITION: Stable to recovery room
[2018-07-31 14:10] VITALS: PULSE 62
[2018-07-31 14:16] VITALS: BP 141/63
== END 2018-07-31 14:39 | disposition home or self-care (01) ==
LOC: OR 11:10
PROVIDERS: ATTEND Surgery
DX: T82.848A Pain due to vascular prosthetic devices, implants and grafts, initial encounter (principal); C34.90 Malignant neoplasm of unspecified part of unspecified bronchus or lung; E78.5 Hyperlipidemia, unspecified; I10 Essential (primary) hypertension; M19.90 Unspecified osteoarthritis, unspecified site; I25.10 Atherosclerotic heart disease of native coronary artery without angina pectoris; R53.83 Other fatigue; Z90.2 Acquired absence of lung [part of]; Z92.21 Personal history of antineoplastic chemotherapy; Z95.1 Presence of aortocoronary bypass graft; Z79.82 Long term (current) use of aspirin; Z79.51 Long term (current) use of inhaled steroids; Z79.899 Other long term (current) drug therapy; Z91.048 Other nonmedicinal substance allergy status; Z87.891 Personal history of nicotine dependence; Z90.49 Acquired absence of other specified parts of digestive tract
CPT/HCPCS: 36590; J2250; J1100; J2405; J2001; J3010; J2704

== ENCOUNTER → 2018-10-08 | Outpatient (CLI) | payer MEDICARE, OTHER ==
--- NOTE | 2018-10-08 15:58 | XR ---
Left humerus HISTORY: Left arm pain 2 views of the left humerus Arthropathy noted at the acromioclavicular joint. There is some spurring at the glenohumeral joint. A lignment and bone mineralization are maintained, joint spaces are normal. IMPRESSION: Osteoarthritis.
== END | disposition home or self-care (01) ==
LOC: RADXRMAIN 14:10
PROVIDERS: ATTEND Internal Medicine Hematology & Oncology
DX: M19.012 Primary osteoarthritis, left shoulder (principal)

== ENCOUNTER → 2018-10-13 | Outpatient (CLI) | payer MEDICARE, OTHER ==
--- NOTE | 2018-10-13 15:47 | NM ---
EXAMINATION TYPE: NM bone scan whole body DATE OF EXAM: 10/13/2018 COMPARISON: NONE HISTORY: Chest pain and hypertension, malignant neoplasm left upper lobe Delayed whole-body scanning was performed following the injection of 24.9 mCi Tc 99m MDP. Images acq uired 3 hours post injection. FINDINGS: Soft tissue uptake is normal. Uptake in the lower lumbar spine is likely due to degenerative change. Uptake in the middle thoracic and cervical spine likely due to degenerative disc disease. Uptake in t he, knees, wrists, shoulders is likely degenerative. IMPRESSION: No evident suspicious uptake. Additional findings above.
== END | disposition home or self-care (01) ==
LOC: RADNMMAIN 10:51
PROVIDERS: ATTEND Internal Medicine Hematology & Oncology
DX: C34.12 Malignant neoplasm of upper lobe, left bronchus or lung (principal); M25.512 Pain in left shoulder
CPT/HCPCS: 78306; A9503

== ENCOUNTER → 2019-01-29 | Outpatient (CLI) | payer MEDICARE, OTHER ==
[2019-01-29 10:55] LABS: Blood Urea Nitrogen 9 mg/dL (7-17)
--- NOTE | 2019-01-29 11:55 | CT ---
EXAMINATION TYPE: CT chest w con DATE OF EXAM: 01/29/2019 COMPARISON: 07/21/2018, PET/CT scan dated February 21, 2018 HISTORY: Lung cancer CT DLP: 721 mGycm Automated exposure control for dose reduction was used. CONTRAST: CT scan of the chest is performed with IV Contrast, patient injected with 100 ml mL of Isovue 300. FINDINGS: LUNGS: There is been total left-sided pneumonectomy in the interval. Fluid fills the left lung cavity . There is hyperinflation of the right lung. No right- sided pulmonary nodule or mass is identified. No evidence for recurrent left- sided disease. MEDIASTINUM: There are no greater than 1 cm hilar or mediastinal lymph nodes. No pericardial effusi on is seen. Atherosclerotic change of the aorta which appears of normal caliber. Coronary artery ath erosclerotic disease noted. Sternotomy wires seen. OTHER: There is mild hepatic steatosis. Cholecystectomy clips are in place. Hypertrophic and degener ative change of the spine noted. There is stable soft tissue thickening posterior laterally on the le ft is stable from the prior exam measuring 2.5 cm. IMPRESSION: 1. Post left pneumonectomy. 2. There is soft tissue thickening along the left posterior lateral soft tissues near the level of th e diaphragm on axial image 59. This is retrospectively stable from the prior exam of 07/21/2018. Dottie elate for surgery in this region otherwise, correlate to exclude neoplastic process. It was not prese nt on the PET CT scan dated 03-09.
== END ==
LOC: RADCTMAIN 10:04
PROVIDERS: ATTEND Internal Medicine Hematology & Oncology
DX: C34.12 Malignant neoplasm of upper lobe, left bronchus or lung (principal); Z90.2 Acquired absence of lung [part of]
CPT/HCPCS: 82565; 84520; 71260; 36415; Q9967

== ENCOUNTER → 2019-08-05 | Outpatient (CLI) | payer MEDICARE, OTHER ==
[2019-08-05 11:39] LABS: African American GFR (CKD) >90 (>60 ml/min/1.73 sqM); Blood Urea Nitrogen 9 mg/dL (7-17)
--- NOTE | 2019-08-05 13:34 | CT ---
EXAMINATION TYPE: CT chest w con DATE OF EXAM: 08/05/2019 COMPARISON: 01/29/2019, 07/21/2018 HISTORY: Lung CA CT DLP: 548.9 mGycm Automated exposure control for dose reduction was used. CONTRAST: CT scan of the chest is performed with IV Contrast, patient injected with 100 mL of Isovue 300. FINDINGS: LUNGS: There is been total left-sided pneumonectomy in the interval. Fluid fills the left lung cavity . There is hyperinflation of the right lung. No right- sided pulmonary nodule or mass is identified. No evidence for recurrent left- sided disease. MEDIASTINUM: There are no greater than 1 cm hilar or mediastinal lymph nodes. No pericardial effusion is seen. Atherosclerotic change of the aorta which appears of normal caliber. Coronary artery athero sclerotic disease noted. Sternotomy wires seen. Stable right cardiophrenic angle shotty adenopathy me asuring subcentimeter in short axis. OTHER: There is mild hepatic steatosis. Cholecystectomy clips are in place. Hypertrophic and degener ative change of the spine noted. There is stable soft tissue thickening posterior laterally on the le ft is demonstrated near complete interval resolution relative to the prior exam. Currently measures 1 1 x 6 mm and previously measured 25 mm. Small focal area of sclerosis involving the T12 vertebral bod y retrospectively stable. Stable cortical defect involving the right kidney likely related to chronic medical renal disease. IMPRESSION: 1. Post left pneumonectomy. 2. There is soft tissue thickening along the left posterior lateral soft tissues has demonstrated lidia r complete resolution compared to the prior exam.
== END ==
LOC: RADCTMAIN 10:43
PROVIDERS: ATTEND Internal Medicine Hematology & Oncology
DX: Z03.89 Encounter for observation for other suspected diseases and conditions ruled out (principal); C34.12 Malignant neoplasm of upper lobe, left bronchus or lung
CPT/HCPCS: 82565; 84520; 71260; 36415; Q9967

== ENCOUNTER → 2019-11-12 | Outpatient (CLI) | payer MEDICARE, OTHER ==
--- NOTE | 2019-11-12 16:23 | CT ---
EXAMINATION TYPE: CT soft tissue neck wo con DATE OF EXAM: 11/12/2019 COMPARISON: None HISTORY: R/O stridor CT DLP: [address] of the neck was performed from the skull base through the lung apices. The lack of cont rast limits evaluation. AIRWAY: There is lobulated soft tissue mass within the trachea at the level of the thoracic inlet isabel suring approximately 1.9 x 2.3 cm involving primarily the posterior Wall greatest towards the left. There is also lobulated component to the right of midline. Ill-defini tion of the posterior wall of the trachea suggest neoplastic process. Neoplasm is not excluded and di rect visualization is advised. There is a polyp but just inferior to the vocal cords to the right of midline measuring 6.4 mm. SALIVARY GLANDS: The submandibular and parotid glands are free of mass or inflammatory process. THYROID GLAND: No nodules or masses seen. LYMPH NODES: No adenopathy seen greater than 1cm. LUNG APICES: Postoperative changes of left-sided pneumonectomy. OTHER: Vascular structures are patent. No significant degenerative change of the cervical spine. N o abscess seen. IMPRESSION: 1. Lobulated soft tissue mass within the trachea at the level of the thoracic inlet measuring approxi mately 1.9 x 2.3 cm involving primarily the posterior Wall greatest towards the left. There is also lobulated component to the right of midline. Neoplasm i s not excluded and direct visualization is advised.
== END | disposition home or self-care (01) ==
LOC: RADCTMAIN 15:53
PROVIDERS: ATTEND Internal Medicine Critical Care Medicine
DX: J39.8 Other specified diseases of upper respiratory tract (principal)
CPT/HCPCS: 70490

== ENCOUNTER 2019-11-15 13:49 | Inpatient (IN) | payer MEDICARE, OTHER ==
[~2019-11-15 13:49] MED LIST changes: +ALBUTEROL NEB (CONC) 2.5 MG/0.5 ML INHALATION ONE; +ATROPINE SULFATE 0.4 MG/ML 1 ML VIAL IM ONE; -DEXAMETHASONE SOD PHOSPHATE 10 MG/ML 1 ML VIAL IV ONE; -HYDROmorphone 0.5 MG/0.5 ML SYRINGE IVP PRN; -LACTATED RINGERS 1,000 ML IV SCH; +LIDOCAINE 2% (PF) 20 MG/ML 5 ML VIAL INHALATION ONE; +LIDOCAINE VISCOUS 300 MG/15 ML CUP MUCOUS MEM ONE; -MIDAZOLAM 2 MG/2 ML VIAL IV PRN; -ONDANSETRON 4 MG/2 ML VIAL IVP ONE
[2019-11-15] MEDS ORDERED: LACTATED RINGERS 1,000 ML IV ONE (14:42)
[2019-11-15] MEDS ORDERED: LIDOCAINE 1% (10MG/ML) FOR IV START INTRADERMA ONE (14:44)
[2019-11-15 14:52] LABS: Glucose,Whole Blood 118 mg/dL (75-99)
[2019-11-15] MEDS ORDERED: GLYCOPYRROLATE 0.2 MG/ML 2 ML VIAL ONE (15:19)
[2019-11-15] MEDS ORDERED: KETAMINE 10 MG/ML 20 ML VIAL ONE (15:19)
[2019-11-15] MEDS ORDERED: PROPOFOL 10 MG/ML 20 ML VIAL IV ONE (15:19)
[2019-11-15] MEDS ORDERED: LIDOCAINE 1% INJ 10MG/ML (20 ML MDV) ONE (15:19)
[2019-11-15] MEDS ORDERED: MIDAZOLAM 2 MG/2 ML VIAL ONE (15:19)
[2019-11-15] MEDS ORDERED: IPRATROPIUM-ALBUTEROL 3 ML NEB INHALATION PRN (15:52)
[2019-11-15] MEDS: DEXAMETHASONE SOD PHOSPHATE 10 MG/ML 1 ML VIAL IV SCH (16:15)
--- NOTE | 2019-11-15 16:38 | XR ---
EXAMINATION TYPE: XR chest 1V portable DATE OF EXAM: 11/15/2019 CLINICAL HISTORY: Post bronchoscopy. TECHNIQUE: Single AP portable upright view of the chest is obtained. COMPARISON: Chest CT August 05, 2019 FINDINGS: Redemonstration of completely opacified left hemithorax with left-sided volume loss and le ft-sided tracheal shift. Right lung remains clear. Overlying sternal wires redemonstrated. Osseous st ructures are intact. IMPRESSION: Overall stable findings, postsurgical changes with opacified left hemithorax and volume loss. Expanded right lung remains clear.
[2019-11-15 16:51] LABS: Glucose,Whole Blood 107 mg/dL (75-99)
--- NOTE | 2019-11-15 16:56 | CONS ---
CONSULTATION PULMONARY/CRITICAL CARE CONSULTATION: DATE OF SERVICE: 11/15/2019 REASON FOR CONSULTATION: Recurrence of lung cancer and tracheal obstruction with hemoptysis. This is a 69-year-old female who underwent a left pneumonectomy on March 19, 2018, by Dr. Quach. 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 The patient underwent chemoradiation after the procedure and had been doing relatively well; in fact, a recent CT scan done on July 2019, showed the left- sided pneumonectomy and stable disease otherwise. There was no evidence of recurrent left-sided disease on the CT scan. More recently, last November 12, the patient presented to the office with a couple weeks' worth of increasing shortness of breath. The patient appeared to have stridor. We gave her some oral Decadron and sent her over to the hospital for a CT scan of the neck. It showed evidence of probable recurrent cancer with tracheal involvement. Anyway, the patient apparently has also been coughing up blood. She did not make us aware of that at the time of the visit on November 12. Anyway, because of the findings on CT scan, we ended up taking her to the bronch suite today. It shows significant recurrence of tumor within the trachea in the subglottic area. I did not biopsy or brush the lesion. I was concerned about it bleeding. I was able to wash the lesion and send it for cytology. Pictures were taken. I decided to go ahead and admit the patient to the ICU for further observation. We will start her on IV Decadron and some breathing treatments. We will also give her IV fluids. I will order some blood work as well. I have already taken the liberty of notifying Dr. Delfin Garcia from [facility]. They will hopefully radiate her tomorrow. Finally, she may need to be transferred, depending on her stability and her response to treatment. I did talk to her family as well. PAST MEDICAL HISTORY: Positive for COPD, [id number] lung cancer, squamous cell type, CAD, hyperlipidemia and hypertension. She is status post chemo- and radiation therapy for her lung cancer. SOCIAL HISTORY: Positive for previous tobacco use. She does not smoke currently. SURGICAL HISTORY: Surgical history includes previous bronchoscopy, left pneumonectomy, cholecystectomy and sinus surgery. She has also had bypass grafting. ALLERGIES: DENIED. FAMILY HISTORY: Noncontributory. CURRENT MEDICATIONS: Her current medications include Combivent Respimat, tramadol, Advair, Prozac, Zetia, cranberry concentrate, multiple vitamins, Lipitor, Xanax, Benicar and metoprolol. REVIEW OF SYSTEMS: CONSTITUTIONAL: Negative. NEUROLOGIC: Negative. HEENT: Negative. CARDIOVASCULAR: Negative. PULMONARY: Hemoptysis and difficulty breathing. GI: Negative. : Negative. RHEUMATOLOGIC: Negative. IMMUNOLOGIC: Negative. ENDOCRINOLOGIC: Negative. DERMATOLOGIC: Negative. PHYSICAL EXAMINATION: VITAL SIGNS: Current vital signs are reviewed. Temperature is 98.7, heart rate 94, respiratory rate 18, blood pressure 102/58. Two-liter saturation is 97%. Room- air saturation 95%. GENERAL APPEARANCE: She appears in no acute distress after the procedure. HEENT EXAMINATION: Grossly unremarkable. Nasal oxygen is noted. NECK: Supple. Full range of motion. CARDIOVASCULAR: Examination reveals regular rhythm and rate. Heart rate in high 80s, low 90s. S1, S2 normal. LUNGS: Lungs reveal relatively clear breath sounds on the right. Breath sounds on the left are diminished. This is because of her previous pneumonectomy. She does demonstrate some stridor as well. ABDOMEN: Soft. Bowel sounds are heard. EXTREMITIES: Intact. No cyanosis, clubbing or edema. SKIN: Without rash. NEUROLOGIC: Neurologic examination is brief but nonfocal. LABS/IMAGING: Reviewed. The only thing that is thus far back is a glucose of 118. No chest x-ray has yet been done. CT of the neck on November 12 shows lobulated soft tissue mass within the trachea at the level of the thoracic inlet measuring approximately 1.9 x 2.3 cm involving primarily the posterior wall toward the left. There is also a lobulated component to the right of midline. Medications are reviewed. ASSESSMENT: 1. Recurrent lung cancer, with tracheal invasion causing both stridor and hemoptysis. 2. History of [id number] lung cancer, status post left pneumonectomy, March 19, 2018, followed by chemoradiation. 3. Chronic obstructive pulmonary disease. 4. Coronary artery disease with previous bypass grafting. 5. Hyperlipidemia. 6. Hypertension. PLAN: The patient is admitted to the ICU. I did talk to Dr. Delfin Garcia from Radiation Therapy. They will start radiating her tomorrow. I added some breathing treatments, IV fluids and Decadron IV 6 mg q.6. Will also do some labs on her, including CBC, comprehensive metabolic profile, and we will get a chest x-ray. Additional recommendations and suggestions are forthcoming. Prognosis is guarded. She may need transfer, should she continue to progress and/or have worsening respiratory status or worsening hemoptysis. I took the liberty of contacting Dr. Maximino Casiano from [facility], should she need transfer. Additional recommendations and suggestions are forthcoming. MMSANTOSL / IJN: [id number] / RK
[2019-11-15] MEDS: SODIUM CHLORIDE 0.9% 1,000 ML IV SCH ×2 (17:21→17:22)
[2019-11-15 17:29] LABS: HGB 11.9 gm/dL (11.4-16.0); MCH 30.7 pg (25.0-35.0); MCHC 32.2 g/dL (31.0-37.0); MCV 95.4 fL (80.0-100.0); Mean Platelet Volume 8.6; Platelet Count 236 k/uL (150-450); RBC 3.88 m/uL (3.80-5.40); RDW 13.1 % (11.5-15.5); WBC 12.7 k/uL (3.8-10.6)
[2019-11-15 17:48] LABS: ALT 27 U/L (4-34); AST 33 U/L (14-36); African American GFR (CKD) >90 (>60 ml/min/1.73 sqM); Albumin 4.1 g/dL (3.5-5.0); Alkaline Phosphatase 79 U/L (38-126); Anion Gap 7 mmol/L; Blood Urea Nitrogen 15 mg/dL (7-17); Calcium 9.2 mg/dL (8.4-10.2); Carbon Dioxide 25 mmol/L (22-30); Chloride 106 mmol/L (98-107); Glucose 111 mg/dL (74-99); Non-African American GFR(CKD) >90 (>60 ml/min/1.73 sqM); Potassium 3.9 mmol/L (3.5-5.1); Sodium 138 mmol/L (137-145); Total Bilirubin 0.3 mg/dL (0.2-1.3); Total Protein 7.1 g/dL (6.3-8.2)
--- NOTE | 2019-11-15 18:41 | PCN ---
PROCEDURE NOTE PROCEDURE: Bronchoscopy, airway examination, therapeutic lavage, BAL. PREOPERATIVE DIAGNOSIS: Recurrent lung cancer. POSTOPERATIVE DIAGNOSIS: Recurrent lung cancer. [employer] MECH[employer]IC: Dr. Crandall. There was informed consent, universal timeout. Echo Buchanan CRNA provided general anesthesia. After the patient was adequately sedated and being fully monitored, the bronchoscope was inserted through the right nostril. It passed through the right nasopharynx into the oropharynx and down into the hypopharynx. The hypopharyngeal structures, including anterior commissure, true cords, false cords, arytenoids, piriform sinuses, right and left valleculae and epiglottis all appeared relatively normal. Once passing through the glottic opening after topicalization, there was obvious tumor involvement in the subglottic area. The tumor was obstructing a significant amount of the trachea. There was still a patent airway, though. The tumor was actually bleeding a bit. Saline was used to get a better view of the tumor. Pictures were taken. We did wash the tumor. Because of the concerns of bleeding, there were no biopsies or brushes performed. The patient tolerated the procedure well and was recovered. The patient will be transferred to the ICU for further monitoring. Patient tolerated the procedure well. MMODL / IJN: [id number] /
[2019-11-15] MEDS: IPRATROPIUM-ALBUTEROL 3 ML NEB INHALATION SCH (20:38)
[2019-11-15] MEDS: METOPROLOL TARTRATE 25 MG TAB PO SCH (21:26)
[2019-11-15] MEDS: ALPRAZolam 0.5 MG TAB PO PRN (23:32)
[2019-11-16] MEDS: DEXAMETHASONE SOD PHOSPHATE 10 MG/ML 1 ML VIAL IV SCH ×4 (00:05→17:54)
[2019-11-16 04:49] LABS: Basophils % (A) 0 %; Eosinophils # (A) 0.2 k/uL (0-0.7); Eosinophils % (A) 1 %; HCT 37.8 % (34.0-46.0); HGB 12.1 gm/dL (11.4-16.0); Lymphocytes # (A) 0.8 k/uL (1.0-4.8); Lymphocytes % (A) 6 %; MCH 30.7 pg (25.0-35.0); MCHC 31.9 g/dL (31.0-37.0); MCV 96.1 fL (80.0-100.0); Mean Platelet Volume 8.8; Monocytes # (A) 0.4 k/uL (0-1.0); Monocytes % (A) 3 %; Neutrophils # (A) 11.5 k/uL (1.3-7.7); Neutrophils % (A) 89 %; Platelet Count 219 k/uL (150-450); RBC 3.93 m/uL (3.80-5.40)
[2019-11-16 05:00] LABS: ALT 28 U/L (4-34); AST 35 U/L (14-36); African American GFR (CKD) >90 (>60 ml/min/1.73 sqM); Albumin 3.6 g/dL (3.5-5.0); Alkaline Phosphatase 69 U/L (38-126); Anion Gap 7 mmol/L; Blood Urea Nitrogen 17 mg/dL (7-17); Calcium 8.9 mg/dL (8.4-10.2); Carbon Dioxide 22 mmol/L (22-30); Chloride 107 mmol/L (98-107); Glucose 133 mg/dL (74-99); Non-African American GFR(CKD) >90 (>60 ml/min/1.73 sqM); Potassium 4.4 mmol/L (3.5-5.1); Sodium 136 mmol/L (137-145); Total Bilirubin 0.3 mg/dL (0.2-1.3); Total Protein 6.5 g/dL (6.3-8.2)
[2019-11-16] MEDS: SODIUM CHLORIDE 0.9% 1,000 ML IV SCH ×3 (06:10→17:52)
[2019-11-16] MEDS: IPRATROPIUM-ALBUTEROL 3 ML NEB INHALATION SCH ×4 (07:45→21:08)
--- NOTE | 2019-11-16 08:09 | XR ---
EXAMINATION TYPE: XR chest 1V DATE OF EXAM: 11/16/2019 COMPARISON: Prior chest x-ray 11/15/[address] 08/05/2019 HISTORY: Shortness of breath TECHNIQUE: Single frontal view of the chest is obtained. FINDINGS: There is opacification of the left hemithorax, volume loss present on the left. Patient is post median sternotomy. There is no evident pneumothorax. Heart is obscured. IMPRESSION: Stable findings, postop change status post pneumonectomy.
[2019-11-16] MEDS ORDERED: traMADol 50 MG TAB PO PRN (08:42)
[2019-11-16] MEDS: LOSARTAN 50 MG TAB PO SCH (08:45)
[2019-11-16] MEDS: HYDROCHLOROTHIAZIDE 12.5 MG CAP PO SCH (08:45)
[2019-11-16] MEDS: FLUoxetine HCL 20 MG CAP PO SCH (08:48)
[2019-11-16] MEDS: METOPROLOL TARTRATE 25 MG TAB PO SCH ×2 (08:48→20:52)
[2019-11-16] MEDS: ALPRAZolam 0.5 MG TAB PO PRN ×2 (09:30→21:55)
[2019-11-16] MEDS: MULTIVITAMINS, THERA 1 EACH TAB PO SCH (09:30)
--- NOTE | 2019-11-16 10:28 | P.HPIM ---
History of Present Illness H&P Date: 11/16/19 This is a 69-year-old female patient who presented for a bronchoscopy with Dr. Crandall on 11/15/2019. Patient has a history of non-small cell lung CA with left- sided pneumonectomy in 2018 with chemo and radiation. Per Dr. Crandall with pulmonary service is patient presented to his office with stridor and shortness of breath. 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 Patient was taken for a bronchoscopy on 11/15/2019. According to reports of significant recurrent tumor within the trachea in the subglottic area. Patient was then transferred to the intensive care unit for IV Decadron a nd airway precautions. Patient has additional medical history of hyperlipidemia hypertension osteoarthritis heart cath and coronary artery bypass graft surgery. Did discuss case with a pulmonary critical care team recommending transferred to [facility] due to concerns over size of tracheal mass. Per Dr. Crandall case was discussed with Dr. Santoyo at [facility] for possible Yag laser treatment procedure for the tumor. Patient is currently resting comfortably in bed. Patient still having significant stridor. Patient remains on Decadron. Patient denies chest pain. Patient denies nausea vomiting or diarrhea. Patient denies any urinary burning or frequency Review of Systems Please refer to HPI otherwise unremarkable Past Medical History Past Medical History: Cancer, Hyperlipidemia, Hypertension, Osteoarthritis (OA) Additional Past Medical History / Comment(s): chemo and radiation- squamous cell lung CA. History of Any Multi-Drug Resistant Organisms: None Reported Past Surgical History: Appendectomy, Cholecystectomy, Coronary Bypass/CABG, Heart Catheterization Additional Past Surgical History / Comment(s): lt lung removed ,triple bypass-1997 Past Anesthesia/Blood Transfusion Reactions: No Reported Reaction Past Psychological History: Anxiety, Depression Smoking Status: Former smoker Past Alcohol Use History: None Reported Additional Past Alcohol Use History / Comment(s): quit smoking 20 yrs. ago, <ppd for 20 yrs. Past Drug Use History: None Reported - Past Family History Brother(s) Family Medical History: Deep Vein Thrombosis (DVT) Medications and Allergies Home Medications Medication Instructions Recorded Confirmed Type ALPRAZolam [Xanax] 0.5 mg PO BID PRN 02/09/18 11/15/19 History Atorvastatin [Lipitor] 20 mg PO HS 02/09/18 11/15/19 History Cranberry Fruit Concentrate 450 mg PO DAILY 02/09/18 11/15/19 History [Cranberry] Ezetimibe [Zetia] 10 mg PO DAILY 02/09/18 11/15/19 History FLUoxetine HCL [PROzac] 20 mg PO DAILY 02/09/18 11/15/19 History Multivitamins, Thera [Multivitamin 1 tab PO DAILY 02/09/18 11/15/19 History (formulary)] Olmesartan/Hydrochlorothiazide 1 tab PO QAM 02/09/18 11/15/19 History [Benicar Hct 40-12.5 mg Tablet] Fluticasone/Salmeterol [Advair 1 inhalation PO RT-BID 03/10/18 11/15/19 History 250-50 Diskus] Ipratropium/Albuterol Sulfate 1 puff INHALATION RT-QID 03/10/18 11/15/19 History [Combivent Respimat Inhaler] Metoprolol Tartrate [Lopressor] 25 mg PO BID 03/10/18 11/15/19 History traMADol HCl [Ultram] 50 mg PO Q6H PRN #20 tab 03/21/18 11/15/19 Rx Allergies Allergy/AdvReac Type Severity Reaction Status Date / Time adhesive tape Allergy blistered Verified 11/15/19 09:41 skin/paper tape is ok Physical Exam Vitals: Vital Signs Temp Pulse Pulse Pulse Resp BP BP 11/16/19 08:00 66 11/16/19 07:46 65 11/16/19 07:00 72 13 140/97 11/16/19 06:00 60 16 128/74 11/16/19 05:00 65 14 117/59 11/16/19 04:00 99.0 F 68 10 L 126/71 11/16/19 03:00 64 13 136/68 11/16/19 02:00 54 L 9 L 127/64 11/16/19 01:00 50 L 13 128/62 11/16/19 00:20 54 L 12 128/62 11/16/19 00:00 98.2 F 62 10 L 113/77 11/15/19 23:00 78 20 139/63 11/15/19 22:00 70 17 136/70 02/24/20 21:00 74 13 124/78 02/24/20 20:47 69 11/15/19 20:39 67 11/15/19 20:00 98.0 F 68 14 160/71 11/15/19 19:20 62 20 160/71 11/15/19 19:10 64 15 11/15/19 19:00 93 22 160/71 11/15/19 18:50 73 13 11/15/19 18:40 68 19 11/15/19 18:30 65 12 11/15/19 18:20 71 16 11/15/19 18:10 69 16 11/15/19 18:00 68 12 150/72 11/15/19 17:50 69 13 11/15/19 17:40 68 24 11/15/19 17:30 73 13 11/15/19 17:20 72 16 11/15/19 17:10 70 15 11/15/19 17:00 73 17 136/70 11/15/19 16:50 78 24 11/15/19 16:48 98.4 F 76 21 11/15/19 16:20 80 16 133/60 11/15/19 16:05 89 18 109/58 11/15/19 15:51 94 18 99/51 11/15/19 15:36 101 H 14 102/58 11/15/19 14:56 85 11/15/19 14:42 88 11/15/19 14:20 98.7 F 86 28 H 131/59 Pulse Ox 11/16/19 08:00 11/16/19 07:46 11/16/19 07:00 95 11/16/19 06:00 93 L 11/16/19 05:00 95 11/16/19 04:00 96 11/16/19 03:00 96 11/16/19 02:00 95 11/16/19 01:00 95 11/16/19 00:20 95 11/16/19 00:00 96 11/15/19 23:00 93 L 11/15/19 22:00 95 11/15/19 21:00 95 11/15/19 20:47 11/15/19 20:39 11/15/19 20:00 97 11/15/19 19:20 96 11/15/19 19:10 95 11/15/19 19:00 11/15/19 18:50 95 11/15/19 18:40 94 L 11/15/19 18:30 95 11/15/19 18:20 95 11/15/19 18:10 94 L 11/15/19 18:00 92 L 11/15/19 17:50 93 L 11/15/19 17:40 94 L 11/15/19 17:30 93 L 11/15/19 17:20 94 L 11/15/19 17:10 96 11/15/19 17:00 94 L 11/15/19 16:50 95 11/15/19 16:48 95 11/15/19 16:20 97 11/15/19 16:05 96 11/15/19 15:51 97 11/15/19 15:36 96 11/15/19 14:56 11/15/19 14:42 11/15/19 14:20 95 Intake and Output 11/15/19 11/16/19 11/16/19 22:59 06:59 14:59 Intake Total 950 1300 100 Balance 950 1300 100 Intake: IV 950 800 100 Sodium Chloride 0.9% 1, 700 800 100 000 ml @ 100 mls/hr IV . Q10H [facility] Rx#:[id number] Oral 500 Other: Voiding Method Toilet Toilet # Voids 1 1 Weight 100.6 kg 102.8 kg Head normocephalic Neck supple. Stridor noted to upper airway Lungs diminished bilaterally Heart regular rate and rhythm S1-S2, no rub or gallop Abdomen is soft nontender nondistended positive bowel sounds no hepatosple nomegaly Extremities no edema Neuro alert and orientated to 3 Results CBC & Chem 7: 11/16/19 04:23 11/16/19 04:23 Labs: Abnormal Lab Results - Last 24 Hours (Table) 11/15/19 11/15/19 11/15/19 Range/Units 14:35 16:49 17:18 WBC 12.7 H (3.8-10.6) k/uL Neutrophils # (1.3-7.7) k/uL Lymphocytes # (1.0-4.8) k/uL Sodium (137-145) mmol/L Glucose (74-99) mg/dL POC Glucose (mg/dL) 118 H 107 H (75-99) mg/dL 11/15/19 11/16/1911/16/20 Range/Units 17:18 04:23 04:23 WBC 13.0 H (3.8-10.6) k/uL Neutrophils # 11.5 H (1.3-7.7) k/uL Lymphocytes # 0.8 L (1.0-4.8) k/uL Sodium 136 L (137-145) mmol/L Glucose 111 H 133 H (74-99) mg/dL POC Glucose (mg/dL) (75-99) mg/dL Thrombosis Risk Factor Assmnt - Choose All That Apply Any of the Below Risk Factors Present?: Yes Each Factor Represents 1 point: Abnormal pulmonary function (COPD), Medical pt on bed rest, Obesity (BMI >25) Other Risk Factors: Yes Each Risk Factor Represents 2 Points: Age 61-74 years, Patient confined to bed Other congenital or acquired thrombophilia - If yes, enter type in comment: No Thrombosis Risk Factor Assessment Total Risk Factor Score: 7 Thrombosis Risk Factor Assessment Level: High Risk Assessment and Plan Assessment: 1. Tracheal mass with obstruction. Patient was seen by pulmonary services out patient for stridor CT was done that showed evidence of probable recurrent cancer with tracheal involvement patient underwent bronchoscopy with Dr. Crandall on 11/15/2019 was found to have significant recurrence of tumor within the trachea in the subglottic area. Patient was transferred to the intensive care unit and started on IV Decadron. Discussed with pulmonary care team recommending transferred to [facility] for yag laser treatment of tracheal mass. 2. 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 She also received chemo and radiation post procedure 3. History of hyperlipidemia patient maintained on statins IV 4. Essential hypertension Home mmedications resumed 5. History of coronary artery disease with coronary artery bypass graft surgery 6. History of anxiety and depression. Patient maintained on Xanax Transferred to [facility] will be started per pulmonary recommendations Time with Patient: Greater than 30 (Greater than 60% of the total time spent in counseling and coordination of care. I performed an examination of the patient and discussed their management with the Nurse Practitioner. I have reviewed the Nurse Practitioner's notes and agree with the documented findings and plan of care)
--- NOTE | 2019-11-16 10:32 | P.DS ---
Providers Date of admission: 11/15/19 15:46 Expected date of discharge: 11/16/19 Attending physician: Russell Crandall Consults: 11/15/19 16:03 Consult Physician Routine Consulting Provider: Bonilla Saez Consult Reason/Comments: lung Ca, mass in trachea Do you want consulting provider notified?: Yes Primary care physician: [facility] Course: Discharge diagnosis Patient will be transferred to [facility] 1. Tracheal mass with obstruction. Patient was seen by pulmonary services outpatient for stridor CT was done that showed evidence of probable recurrent cancer with tracheal involvement patient underwent bronchoscopy with Dr. Crandall on 11/15/2019 was found to have significant recurrence of tumor within the trachea in the subglottic area. Patient was transferred to the intensive care unit and started on IV Decadron. Discussed with pulmonary care team recommending transferred to [facility] for yag laser treatment of tracheal mass. 2. 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 She also received chemo and radiation post procedure 3. History of hyperlipidemia patient maintained on statins IV 4. Essential hypertension Home mmedications resumed 5. History of coronary artery disease with coronary artery bypass graft surgery 6. History of anxiety and depression. Patient maintained on Xanax Hospital course This is a 69-year-old female patient who presented for a bronchoscopy with Dr. Crandall on 11/15/2019. Patient has a history of non-small cell lung CA with left- sided pneumonectomy in 2018 with chemo and radiation. Per Dr. Crandall with pulmonary service is patient presented to his office with stridor and shortness of breath. 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 Patient was taken for a bronchoscopy on 11/15/2019. According to reports of significant recurrent tumor within the trachea in the subglottic area. Patient was then transferred to the intensive care unit for IV Decadron and airway precautions. Patient has additional medical history of hyperlipidemia hypertension osteoarthritis heart cath and coronary artery bypass graft surgery. Did discuss case with a pulmonary critical care team recommending transferred to [facility] due to concerns over size of tracheal mass. Per Dr. Crandall case was discussed with Dr. Santoyo at [facility] for possible Yag laser treatment procedure for the tumor. Patient is currently resting comfortably in bed. Patient still having significant stridor. Patient remains on Decadron. Patient denies chest pain. Patient denies nausea vomiting or diarrhea. Patient denies any urinary burning or frequency Discussed case with pulmonary service, recommending transfer to [facility]. Per pulmonary, case was discussed with Dr. Ambrocio at [facility] per Dr. Crandall. [facility] has accepted patient awaiting bed placement case management aware. Did discuss case with oncology services recommending biopsy to be obtained at [facility]. Patient is currently maintained on IV Decadron vitals are stable. I performed an examination of the patient and discussed their management with the Nurse Practitioner. I have reviewed the Nurse Practitioner's notes and agree with the documented findings and plan of care Plan - Discharge Summary Discharge Rx Participant: Yes New Discharge Prescriptions: No Action FLUoxetine HCL [PROzac] 20 mg PO DAILY Atorvastatin [Lipitor] 20 mg PO HS ALPRAZolam [Xanax] 0.5 mg PO BID PRN PRN Reason: Anxiety Olmesartan/Hydrochlorothiazide [Benicar Hct 40-12.5 mg Tablet] 1 tab PO QAM Ezetimibe [Zetia] 10 mg PO DAILY Multivitamins, Thera [Multivitamin (formulary)] 1 tab PO DAILY Cranberry Fruit Concentrate [Cranberry] 450 mg PO DAILY Ipratropium/Albuterol Sulfate [Combivent Respimat Inhaler] 1 puff INHALATION RT-QID Metoprolol Tartrate [Lopressor] 25 mg PO BID Fluticasone/Salmeterol [Advair 250-50 Diskus] 1 inhalation PO RT-BID traMADol HCl [Ultram] 50 mg PO Q6H PRN #20 tab PRN Reason: Moderate Pain Discharge Medication List ALPRAZolam [Xanax] 0.5 mg PO BID PRN 02/09/18 [History] Atorvastatin [Lipitor] 20 mg PO HS 02/09/18 [History] Cranberry Fruit Concentrate [Cranberry] 450 mg PO DAILY 02/09/18 [History] Ezetimibe [Zetia] 10 mg PO DAILY 02/09/18 [History] FLUoxetine HCL [PROzac] 20 mg PO DAILY 02/09/18 [History] Multivitamins, Thera [Multivitamin (formulary)] 1 tab PO DAILY 02/09/18 [History] Olmesartan/Hydrochlorothiazide [Benicar Hct 40-12.5 mg Tablet] 1 tab PO QAM 02/09/18 [History] Fluticasone/Salmeterol [Advair 250-50 Diskus] 1 inhalation PO RT-BID 03/10/18 [History] Ipratropium/Albuterol Sulfate [Combivent Respimat Inhaler] 1 puff INHALATION RT- QID 03/10/18 [History] Metoprolol Tartrate [Lopressor] 25 mg PO BID 03/10/18 [History] traMADol HCl [Ultram] 50 mg PO Q6H PRN #20 tab 03/21/18 [Rx]
[2019-11-16] MEDS: EZETIMIBE 10 MG TAB PO SCH (11:19)
--- NOTE | 2019-11-16 11:55 | P.PN ---
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 Patient was reevaluated today on 11/16/19, patient is in the ICU, and I had a chance to check with the patient regarding her bronchial findings, and I felt at this point it would be best to transfer the patient to [facility]. Patient obviously has a near complete occlusion of her trachea and she will most likely benefit from YAG laser of the endotracheal tumor, and that is to be done at [facility]. In the meantime the patient seems to be comfortable, she has minimal stridor, but in no distress. And the stridor is noted mostly with forced inspiratory and expiratory maneuver. Discussed her condition with the admitting physician and with Dr. Crandall, and we are all in agreement that the patient would benefit from referral to a tertiary care center. If the patient is to deteriorate at any point now, she will need an emergency tracheostomy. Patient seems to be stable enough for transfer, she is now on bronchodilators and on Decadron, and the process of transferring the patient to [facility] is in progress. Labs from today were all reviewed. Objective - Vital Signs Vital signs: Vital Signs Temp 98.4 F 11/16/19 08:00 Pulse 60 11/16/19 11:34 Resp 15 11/16/19 11:00 BP 165/83 11/16/19 11:00 Pulse Ox 96 11/16/19 11:00 Intake & Output 11/15/19 11/16/19 11/16/19 18:59 06:59 18:59 Intake Total 650 1700 420 Balance 650 1700 420 Weight 100.6 kg 102.8 kg Intake: IV 650 1200 420 Sodium Chloride 0.9% 1, 300 1200 420 000 ml @ 100 mls/hr IV . Q10H [facility] Rx#:[id number] Oral 500 Other: Voiding Method Toilet Toilet Toilet # Voids 1 1 # Bowel Movements 1 - Exam Physical Exam: Revealed 69-year-old female in no distress. Head: Atraumatic, normocephalic. HEENT:[Neck is supple.] [No neck masses.] [No thyromegaly.] [No JVD.], Minimal stridor is noted over the neck area. Chest: [Diminished breath sounds on the left side, right side is relatively clear.] Cardiac Exam: [Normal S1 and S2, no S3 gallop, no murmur.] Abdomen: [Soft, nontender, no megaly, no rebound, no guarding, normal bowel sounds.] Extremities: [No clubbing, no edema, no cyanosis.] Neurological Exam: [No focal neurologic deficit.] Alert and oriented 3. Psychiatric: Normal mood affect and normal mental status examination. Skin: No rashes - Labs CBC & Chem 7: 11/16/19 04:23 11/16/19 04:23 Labs: Abnormal Lab Results - Last 24 Hours (Table) 11/15/19 11/15/19 11/15/19 Range/Units 14:35 16:49 17:18 WBC 12.7 H (3.8-10.6) k/uL Neutrophils # (1.3-7.7) k/uL Lymphocytes # (1.0-4.8) k/uL Sodium (137-145) mmol/L Glucose (74-99) mg/dL POC Glucose (mg/dL) 118 H 107 H (75-99) mg/dL 11/15/19 11/16/19 11/16/19 Range/Units 17:18 04:23 04:23 WBC 13.0 H (3.8-10.6) k/uL Neutrophils # 11.5 H (1.3-7.7) k/uL Lymphocytes # 0.8 L (1.0-4.8) k/uL Sodium 136 L (137-145) mmol/L Glucose 111 H 133 H (74-99) mg/dL POC Glucose (mg/dL) (75-99) mg/dL Assessment and Plan Assessment: Impression: Endotracheal mass, 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 Stridor secondary to endotracheal mass and near complete occlusion of the t rachea noted on bronchoscopy yesterday. History of squamous cell carcinoma of the left lung and previous pneumonectomy in February of 2018. Benign essential hypertension. Hemoptysis secondary to above endotracheal mass. Recommendation: Continue present treatment plan. Arrange for transfer to [facility] for potential YAG laser with rigid bronchoscopy Discussed her condition with the different consultants including oncology, and the admitting physician as well as Dr. Crandall yesterday. Transfer arrangements are in progress. Patient was made aware of the risks and benefits of the transfer. And she is agreeable to proceed Time with Patient: Less than 30
--- NOTE | 2019-11-16 15:46 | P.CONS ---
History of Present Illness - Reason for Consult Consult date: 11/16/19 squamous cell lung cancer, new mass Requesting physician: Oneida Tarango - Chief Complaint difficulty breathing - History of Present Illness Mrs. Torres is a very pleasant 69-year-old female patient with medical Oncologist Dr. Saez and Radiation Oncologist Dr. Garcia. Patient presented with shortness of breath, hemoptysis in January 2018. Chest x-ray and CT revealed a left hilar mass measuring 5 x 4 cm. Bronchoscopy and transbronchial biopsy by Dr. Crandall 02/12/18 revealed moderately differentiated squamous cell carcinoma, staging PET scan confirmed disease to be avid, no metastatic disease. Patient was taken to the OR by Dr. Quach on 02/12/18, left pneumonectomy, final path revealed 5.8 cm left mainstem squamous cell carcinoma, grade 2/3, positive bronchial and vascular margins, 7 of 16 hilar lymph nodes positive for metastatic disease, final T3 N1 M0. Received 4 cycles of adjuvant chemotherapy and had adjuvant XRT. 2 years since diagnosis pt was is currently on 6 month follow-up, last seen by Dr. Saez in July, CT chest BRIGITTE, no complaints. Patient presented to Dr. Crandall recently with complaints of progressive shortness of breath, associated with some mild difficulty in swallowing, and hemoptysis. He sent her 11/12/19 CT of the soft tissue of the neck revealing a 1.9 x 2.3 cm mass invading the trachea at the level of thoracic inlet. Patient is currently admitted with significant dyspnea and stridor, she did have a bronchoscopy with washings, tumor very friable looking with concerns for bleeding resulting in complete airway obstruction. Patient denied any constitutional symptoms, adenopathies, unintentional weight loss, pain in the chest, acute changes in bowel or bladder habits, energy levels down Review of Systems 14 point review of systems is negative except as stated in HPI Past Medical History Past Medical History: Cancer, Hyperlipidemia, Hypertension, Osteoarthritis (OA) Additional Past Medical History / Comment(s): chemo and radiation- squamous cell lung CA. History of Any Multi-Drug Resistant Organisms: None Reported Past Surgical History: Appendectomy, Cholecystectomy, Coronary Bypass/CABG, Heart Catheterization Additional Past Surgical History / Comment(s): lt lung removed ,triple bypass-1997 Past Anesthesia/Blood Transfusion Reactions: No Reported Reaction Past Psychological History: Anxiety, Depression Smoking Status: Former smoker Past Alcohol Use History: None Reported Additional Past Alcohol Use History / Comment(s): quit smoking 20 yrs. ago, <ppd for 20 yrs. Past Drug Use History: None Reported - Past Family History Brother(s) Family Medical History: Deep Vein Thrombosis (DVT) Medications and Allergies Home Medications Medication Instructions Recorded Confirmed Type ALPRAZolam [Xanax] 0.5 mg PO BID PRN 02/09/18 11/15/19 History Atorvastatin [Lipitor] 20 mg PO HS 02/09/18 11/15/19 History Cranberry Fruit Concentrate 450 mg PO DAILY 02/09/18 11/15/19 History [Cranberry] Ezetimibe [Zetia] 10 mg PO DAILY 02/09/18 11/15/19 History FLUoxetine HCL [PROzac] 20 mg PO DAILY 02/09/18 11/15/19 History Multivitamins, Thera [Multivitamin 1 tab PO DAILY 02/09/18 11/15/19 History (formulary)] Olmesartan/Hydrochlorothiazide 1 tab PO QAM 02/09/18 11/15/19 History [Benicar Hct 40-12.5 mg Tablet] Fluticasone/Salmeterol [Advair 1 inhalation PO RT-BID 03/10/18 11/15/19 History 250-50 Diskus] Ipratropium/Albuterol Sulfate 1 puff INHALATION RT-QID 03/10/18 11/15/19 History [Combivent Respimat Inhaler] Metoprolol Tartrate [Lopressor] 25 mg PO BID 03/10/18 11/15/19 History traMADol HCl [Ultram] 50 mg PO Q6H PRN #20 tab 03/21/18 11/15/19 Rx Allergies Allergy/AdvReac Type Severity Reaction Status Date / Time adhesive tape Allergy blistered Verified 11/15/19 09:41 skin/paper tape is ok Physical Exam Vitals: Vital Signs Temp Pulse Pulse Resp BP BP Pulse Ox 11/16/19 15:00 77 21 146/68 96 11/16/19 14:00 61 14 136/60 95 11/16/19 13:00 70 18 129/68 96 11/16/19 12:00 99.1 F 82 20 145/67 96 02/25/20 11:34 60 11/16/19 11:22 58 L 11/16/19 11:00 58 L 15 165/83 96 11/16/19 10:00 64 15 147/78 97 11/16/19 09:00 64 13 131/101 96 11/16/19 08:00 98.4 F 77 13 151/83 96 11/16/19 07:46 65 11/16/19 07:00 72 13 140/97 95 11/16/19 06:00 60 16 128/74 93 L 11/16/19 05:00 65 14 117/59 95 11/16/19 04:00 99.0 F 68 10 L 126/71 96 11/16/19 03:00 64 13 136/68 96 11/16/19 02:00 54 L 9 L 127/64 95 11/16/19 01:00 50 L 13 128/62 95 11/16/19 00:20 54 L 12 128/62 95 11/16/19 00:00 98.2 F 62 10 L 113/77 96 11/15/19 23:00 78 20 139/63 93 L 11/15/19 22:00 70 17 136/70 95 11/15/19 21:00 74 13 124/78 95 11/15/19 20:47 69 11/15/19 20:39 67 11/15/19 20:00 98.0 F 68 14 160/71 97 11/15/19 19:20 62 20 160/71 96 11/15/19 19:10 64 15 95 11/15/19 19:00 93 22 160/71 11/15/19 18:50 73 13 95 11/15/19 18:40 68 19 94 L 11/15/19 18:30 65 12 95 20 18:20 71 16 95 20 18:10 69 16 94 L 11/15/19 18:00 68 12 150/72 92 L 11/15/19 17:50 69 13 93 L 11/15/19 17:40 68 24 94 L 20 17:30 73 13 93 L 20 17:20 72 16 94 L 20 17:10 70 15 96 11/15/19 17:00 73 17 136/70 94 L 11/15/19 16:50 78 24 95 11/15/19 16:48 98.4 F 76 21 95 11/15/19 16:20 80 16 133/60 97 11/15/19 16:05 89 18 109/58 96 11/15/19 15:51 94 18 99/51 97 11/15/19 15:36 101 H 14 102/58 96 Intake and Output 11/16/19 11/16/19 11/16/19 06:59 14:59 22:59 Intake Total 1300 960 20 Balance 1300 960 20 Intake: IV 800 480 20 Sodium Chloride 0.9% 1, 800 480 20 000 ml @ 100 mls/hr IV . Q10H [facility] Rx#:[id number] Oral 500 480 Other: Voiding Method Toilet Toilet # Voids 1 1 1 # Bowel Movements 1 Weight 102.8 kg - Constitutional General appearance: cooperative, mild distress, obese - EENT Eyes: anicteric sclerae, EOMI ENT: hearing grossly normal - Neck Neck: stridor - Respiratory Respiratory: right: diminished - Cardiovascular Heart sounds: normal: S1, S2 Abnormal Heart Sounds: no systolic murmur, no diastolic murmur, no rub, no S3 Gallop, no S4 Gallop, no click, no other leg Peripheral Edema: bilateral: Trace - Gastrointestinal General gastrointestinal: no absent bowel sounds, no decreased bowel sounds, no distended, no hepatomegaly, no hyperactive bowel sounds, normal bowel sounds, no organomegaly, no rigid, no scaphoid, soft, no splenomegaly, no tenderness, no umbilical hernia, no ventral hernia - Integumentary Integumentary: flushed - Neurologic Neurologic: CNII-XII intact - Musculoskeletal Musculoskeletal: generalized weakness, strength equal bilaterally - Psychiatric Psychiatric: A&O x's 3, appropriate affect, intact judgment & insight Results CBC & Chem 7: 11/16/19 04:23 11/16/19 04:23 Labs: Abnormal Lab Results - Last 24 Hours (Table) 11/15/19 11/15/19 11/15/19 Range/Units 16:49 17:18 17:18 WBC 12.7 H (3.8-10.6) k/uL Neutrophils # (1.3-7.7) k/uL Lymphocytes # (1.0-4.8) k/uL Sodium (137-145) mmol/L Glucose 111 H (74-99) mg/dL POC Glucose (mg/dL) 107 H (75-99) mg/dL 11/16/19 11/16/19 Range/Units 04:23 04:23 WBC 13.0 H (3.8-10.6) k/uL Neutrophils # 11.5 H (1.3-7.7) k/uL Lymphocytes # 0.8 L (1.0-4.8) k/uL Sodium 136 L (137-145) mmol/L Glucose 133 H (74-99) mg/dL POC Glucose (mg/dL) (75-99) mg/dL Comments: CT neck soft tissue report reviewed Assessment and Plan (1) Throat mass Narrative/Plan: Subglottal tumor. Patient is status post bronchoscopy with Pulmonary. Tumor was friable, very small opening remaining for patency of the airway. Washings performed, pathology pending. Dr. Malcolm discussed the case with Dr. Roper. Plan is for transfer patient to tertiary care facility for procedure that is not available locally. Agree with plan. Discussed the case with Attending HARDWARE ASSEMBLER. Have requested that during procedures tissue specimen be obtained for biopsy, possible next generation sequencing. Current Visit: Yes Status: Acute Priority: High Code(s): R22.1 - LOCALIZED SWELLING, MASS AND LUMP, NECK SNOMED Code(s): 458371800 (2) Dyspnea Narrative/Plan: Significant concern for patency of the airway. Patient is being transferred [facility]. Current Visit: Yes Status: Acute Priority: High Code(s): R06.00 - DYSPNEA, UNSPECIFIED SNOMED Code(s): 043007447 Plan: Doctor attests: I performed a history and physical examination of this patient, developed impression and plan of care. Discussed with dictator. I agree with dictators note, documented as a scribe.
[2019-11-16] MEDS: ATORVASTATIN 20 MG TAB PO SCH (20:52)
[2019-11-16] MEDS: SYMBICORT 80-4.5 MCG INHALER INHALATION SCH (21:07)
[2019-11-17] MEDS: DEXAMETHASONE SOD PHOSPHATE 10 MG/ML 1 ML VIAL IV SCH ×5 (00:07→23:24)
[2019-11-17 05:23] LABS: Basophils % (A) 0 %; Eosinophils # (A) 0.1 k/uL (0-0.7); Eosinophils % (A) 1 %; HCT 40.5 % (34.0-46.0); HGB 13.1 gm/dL (11.4-16.0); Lymphocytes % (A) 10 %; MCH 30.8 pg (25.0-35.0); MCHC 32.3 g/dL (31.0-37.0); MCV 95.5 fL (80.0-100.0); Mean Platelet Volume 9.1; Monocytes # (A) 0.4 k/uL (0-1.0); Monocytes % (A) 4 %; Neutrophils # (A) 9.2 k/uL (1.3-7.7); Neutrophils % (A) 85 %; Platelet Count 245 k/uL (150-450); RBC 4.24 m/uL (3.80-5.40); RDW 12.9 % (11.5-15.5); WBC 10.9 k/uL (3.8-10.6)
[2019-11-17 05:34] LABS: ALT 38 U/L (4-34); AST 45 U/L (14-36); African American GFR (CKD) >90 (>60 ml/min/1.73 sqM); Albumin 3.8 g/dL (3.5-5.0); Alkaline Phosphatase 73 U/L (38-126); Anion Gap 6 mmol/L; Blood Urea Nitrogen 18 mg/dL (7-17); Calcium 9.3 mg/dL (8.4-10.2); Carbon Dioxide 25 mmol/L (22-30); Chloride 105 mmol/L (98-107); Glucose 134 mg/dL (74-99); Non-African American GFR(CKD) >90 (>60 ml/min/1.73 sqM); Potassium 4.1 mmol/L (3.5-5.1); Sodium 136 mmol/L (137-145); Total Bilirubin 0.3 mg/dL (0.2-1.3); Total Protein 6.7 g/dL (6.3-8.2)
--- NOTE | 2019-11-17 08:04 | XR ---
EXAMINATION TYPE: XR chest 1V portable DATE OF EXAM: 11/17/2019 COMPARISON: Prior chest x-ray 11/16/2019, CT 11/12/2019, 08/05/2019 HISTORY: Malignant tumor and trachea, status post pneumonectomy, abnormal chest x-ray TECHNIQUE: Single frontal view of the chest is obtained. FINDINGS: Findings are stable compared to prior exam. Tracheal mass, abnormal soft tissue is present at the level of the trachea corresponding to patient's CT scans. IMPRESSION: Postpneumonectomy change on the left. Tracheal mass.
[2019-11-17] MEDS: SYMBICORT 80-4.5 MCG INHALER INHALATION SCH ×2 (08:07→20:22)
[2019-11-17] MEDS: IPRATROPIUM-ALBUTEROL 3 ML NEB INHALATION SCH ×4 (08:07→20:22)
[2019-11-17] MEDS: ALPRAZolam 0.5 MG TAB PO PRN ×2 (08:37→22:50)
[2019-11-17] MEDS: EZETIMIBE 10 MG TAB PO SCH (08:37)
[2019-11-17] MEDS: FLUoxetine HCL 20 MG CAP PO SCH (08:37)
[2019-11-17] MEDS: LOSARTAN 50 MG TAB PO SCH (08:37)
[2019-11-17] MEDS: HYDROCHLOROTHIAZIDE 12.5 MG CAP PO SCH (08:37)
[2019-11-17] MEDS: MULTIVITAMINS, THERA 1 EACH TAB PO SCH (08:37)
[2019-11-17] MEDS: METOPROLOL TARTRATE 25 MG TAB PO SCH ×2 (08:37→21:06)
[2019-11-17] MEDS: SODIUM CHLORIDE 0.9% 1,000 ML IV SCH ×3 (08:38→18:57)
--- NOTE | 2019-11-17 10:47 | P.PN ---
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 Patient was reevaluated today on 11/16/19, patient is in the ICU, and I had a chance to check with the patient regarding her bronchial findings, and I felt at this point it would be best to transfer the patient to [facility]. Patient obviously has a near complete occlusion of her trachea and she will most likely benefit from YAG laser of the endotracheal tumor, and that is to be done at [facility]. In the meantime the patient seems to be comfortable, she has minimal stridor, but in no distress. And the stridor is noted mostly with forced inspiratory and expiratory maneuver. Discussed her condition with the admitting physician and with Dr. Crandall, and we are all in agreement that the patient would benefit from referral to a tertiary care center. If the patient is to deteriorate at any point now, she will need an emergency tracheostomy. Patient seems to be stable enough for transfer, she is now on bronchodilators and on Decadron, and the process of transferring the patient to [facility] is in progress. Labs from today were all reviewed. Reevaluated today on 11/17/19, patient remains in the intensive care unit, doing fairly well, remains on Decadron, no further episodes of hemoptysis, stridor seems to be a bit less, patient is comfortable, awaiting a bed to open at [facility] for transfer. CBC is relatively normal basic metabolic profile is normal Objective - Vital Signs Vital signs: Vital Signs Temp 97.8 F 11/17/19 04:00 Pulse 61 11/17/19 09:00 Resp 14 11/17/19 09:00 BP 138/68 11/17/19 09:00 Pulse Ox 96 11/17/19 09:00 Intake & Output 11/16/19 11/17/19 11/17/19 18:59 06:59 18:59 Intake Total 1520 340 300 Balance 1520 340 300 Weight 103 kg Intake: IV 560 240 60 Sodium Chloride 0.9% 1, 560 240 60 000 ml @ 100 mls/hr IV . Q10H [facility] Rx#:[id number] Oral 960 100 240 Other: Voiding Method Toilet Toilet Toilet # Voids 1 1 # Bowel Movements 1 - Exam Physical Exam: Revealed 69-year-old female in no distress. Head: Atraumatic, normocephalic. HEENT:[Neck is supple.] [No neck masses.] [No thyromegaly.] [No JVD.], Minimal stridor on forced inspiratory and expiratory maneuver. Chest: [Diminished breath sounds on the left side, right side is relatively clear.] Cardiac Exam: [Normal S1 and S2, no S3 gallop, no murmur.] Abdomen: [Soft, nontender, no megaly, no rebound, no guarding, normal bowel sounds.] Extremities: [No clubbing, no edema, no cyanosis.] Neurological Exam: [No focal neurologic deficit.] Alert and oriented 3. Psychiatric: Normal mood affect and normal mental status examination. Skin: No rashes - Labs CBC & Chem 7: 11/17/19 04:52 11/17/19 04:52 Labs: Abnormal Lab Results - Last 24 Hours (Table) 11/17/19 11/17/19 Range/Units 04:52 04:52 WBC 10.9 H (3.8-10.6) k/uL Neutrophils # 9.2 H (1.3-7.7) k/uL Sodium 136 L (137-145) mmol/L BUN 18 H (7-17) mg/dL Glucose 134 H (74-99) mg/dL AST 45 H (14-36) U/L ALT 38 H (4-34) U/L Assessment and Plan Assessment: Impression: Endotracheal mass, 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 Stridor secondary to endotracheal mass and near complete occlusion of the trachea noted on bronchoscopy History of squamous cell carcinoma of the left lung and previous pneumonectomy in February of 2018. Benign essential hypertension. Hemoptysis secondary to above endotracheal mass. Recommendation: Continue present treatment plan. Awaiting for transfer to [facility]. Once a bed is available Transfer arrangements are in progress. In the meantime continue steroids, and bronchodilators, we'll continue to monitor closely. Time with Patient: Less than 30
--- NOTE | 2019-11-17 11:30 | P.PN ---
Subjective Progress Note Date: 11/17/19 This is a 69-year-old female patient who presented for a bronchoscopy with Dr. Crandall on 11/15/2019. Patient has a history of non-small cell lung CA with left- sided pneumonectomy in 2018 with chemo and radiation. Per Dr. Crandall with pulmonary service is patient presented to his office with stridor and shortness of breath. 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 Patient was taken for a bronchoscopy on 11/15/2019. According to reports of significant recurrent tumor within the trachea in the subglottic area. Patient was then transferred to the intensive care unit for IV Decadron and airway precautions. Patient has additional medical history of hyperlipidemia hypertension osteoarthritis heart cath and coronary artery bypass graft surgery. Did discuss case with a pulmonary critical care team recommending transferred to [facility] due to concerns over size of tracheal mass. Per Dr. Crandall case was discussed with Dr. Santoyo at [facility] for possible Yag laser treatment procedure for the tumor. Patient is currently resting comfortably in bed. Patient still having significant stridor. Patient remains on Decadron. Patient denies chest pain. Patient denies nausea vomiting or diarrhea. Patient denies any urinary burning or frequency Discussed case with pulmonary service, recommending transfer to [facility]. Per pulmonary, case was discussed with Dr. Ambrocio at [facility] per Dr. Crandall. [facility] has accepted patient awaiting bed placement case management aware. Did discuss case with oncology services recommending biopsy to be obtained at [facility]. Patient is currently maintained on IV Decadron vitals are stable. On 11/17/2019 patient is alert and oriented 3 still having some stridor. Awaiting bed at [facility]. Updated report given to [facility] possible bed availability in the next 24 hours per [facility]. Vitals remained stable. Patient remains on 2 L. Patient maintained on IV Decadron. At this t anne patient denies chest pain. Patient denies nausea vomiting or diarrhea. Patient denies any urinary burning or frequency. Objective - Vital Signs Vital signs: Vital Signs Temp 97.8 F 11/17/19 04:00 Pulse 58 L 11/17/19 11:23 Resp 14 11/17/19 09:00 BP 138/68 11/17/19 09:00 Pulse Ox 96 11/17/19 09:00 Intake & Output 11/16/19 11/17/19 11/17/19 18:59 06:59 18:59 Intake Total 1520 340 300 Balance 1520 340 300 Weight 103 kg Intake: IV 560 240 60 Sodium Chloride 0.9% 1, 560 240 60 000 ml @ 100 mls/hr IV . Q10H [facility] Rx#:[id number] Oral 960 100 240 Other: Voiding Method Toilet Toilet Toilet # Voids 1 1 # Bowel Movements 1 - Exam Head normocephalic Neck supple. Stridor noted to upper airway Lungs diminished bilaterally Heart regular rate and rhythm S1-S2, no rub or gallop Abdomen is soft nontender nondistended positive bowel sounds no hepatosplenomegaly Extremities no edema Neuro alert and orientated to 3 - Labs CBC & Chem 7: 11/17/19 04:52 11/17/19 04:52 Labs: Abnormal Lab Results - Last 24 Hours (Table) 11/17/19 11/17/19 Range/Units 04:52 04:52 WBC 10.9 H (3.8-10.6) k/uL Neutrophils # 9.2 H (1.3-7.7) k/uL Sodium 136 L (137-145) mmol/L BUN 18 H (7-17) mg/dL Glucose 134 H (74-99) mg/dL AST 45 H (14-36) U/L ALT 38 H (4-34) U/L Assessment and Plan Assessment: 1. Tracheal mass with obstruction. Patient was seen by pulmonary services outpatient for stridor CT was done that showed evidence of probable recurrent cancer with tracheal involvement patient underwent bronchoscopy with Dr. Crandall on 11/15/2019 was found to have significant recurrence of tumor within the trachea in the subglottic area. Patient was transferred to the intensive care unit and started on IV Decadron. Discussed with pulmonary care team calei ng transferred to [facility] for yag laser treatment of tracheal mass. 2. 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 She also received chemo and radiation post procedure 3. History of hyperlipidemia patient maintained on statins IV 4. Essential hypertension Home mmedications resumed 5. History of coronary artery disease with coronary artery bypass graft surgery 6. History of anxiety and depression. Patient maintained on Xanax DVT prophylaxis SCDs due to possible surgical intervention at [facility]. GI prophylaxis Pepcid Transferred to [facility] in progress awaiting bed availability. Updated report given to [facility] I performed an examination of the patient and discussed their management with the Nurse Practitioner. I have reviewed the Nurse Practitioner's notes and agree with the documented findings and plan of care Time with Patient: Greater than 30 (Greater than 60% of the total time spent in counseling and coordination of care. I performed an examination of the patient and discussed their management with the Nurse Practitioner. I have reviewed the Nurse Practitioner's notes and agree with the documented findings and plan of care)
[2019-11-17] MEDS: ATORVASTATIN 20 MG TAB PO SCH (21:07)
[2019-11-18 06:06] LABS: ALT 39 U/L (4-34); AST 35 U/L (14-36); African American GFR (CKD) >90 (>60 ml/min/1.73 sqM); Albumin 3.8 g/dL (3.5-5.0); Alkaline Phosphatase 74 U/L (38-126); Anion Gap 7 mmol/L; Blood Urea Nitrogen 19 mg/dL (7-17); Calcium 9.2 mg/dL (8.4-10.2); Carbon Dioxide 25 mmol/L (22-30); Chloride 103 mmol/L (98-107); Glucose 117 mg/dL (74-99); Non-African American GFR(CKD) >90 (>60 ml/min/1.73 sqM); Potassium 4.4 mmol/L (3.5-5.1); Sodium 135 mmol/L (137-145); Total Bilirubin 0.3 mg/dL (0.2-1.3); Total Protein 6.9 g/dL (6.3-8.2)
[2019-11-18 06:23] LABS: Basophils % (A) 0 %; Eosinophils # (A) 0.1 k/uL (0-0.7); Eosinophils % (A) 1 %; HGB 13.6 gm/dL (11.4-16.0); Lymphocytes % (A) 9 %; MCH 29.9 pg (25.0-35.0); MCHC 31.6 g/dL (31.0-37.0); MCV 94.6 fL (80.0-100.0); Mean Platelet Volume 9.8; Monocytes # (A) 0.6 k/uL (0-1.0); Monocytes % (A) 5 %; Neutrophils # (A) 9.9 k/uL (1.3-7.7); Neutrophils % (A) 85 %; Platelet Count 253 k/uL (150-450); RBC 4.54 m/uL (3.80-5.40); RDW 12.9 % (11.5-15.5); WBC 11.7 k/uL (3.8-10.6)
[2019-11-18] MEDS: DEXAMETHASONE SOD PHOSPHATE 10 MG/ML 1 ML VIAL IV SCH ×3 (06:26→17:38)
[2019-11-18] MEDS: SODIUM CHLORIDE 0.9% 1,000 ML IV SCH (06:27)
[2019-11-18] MEDS: LOSARTAN 50 MG TAB PO SCH (08:58)
[2019-11-18] MEDS: ALPRAZolam 0.5 MG TAB PO PRN ×2 (09:00→22:17)
[2019-11-18] MEDS: FAMOTIDINE 20 MG TAB PO SCH (09:01)
[2019-11-18] MEDS: FLUoxetine HCL 20 MG CAP PO SCH (09:01)
[2019-11-18] MEDS: METOPROLOL TARTRATE 25 MG TAB PO SCH ×2 (09:01→22:04)
[2019-11-18] MEDS: MULTIVITAMINS, THERA 1 EACH TAB PO SCH (09:01)
[2019-11-18] MEDS: EZETIMIBE 10 MG TAB PO SCH (09:01)
[2019-11-18] MEDS: HYDROCHLOROTHIAZIDE 12.5 MG CAP PO SCH (09:02)
[2019-11-18] MEDS: SYMBICORT 80-4.5 MCG INHALER INHALATION SCH ×2 (09:06→21:32)
[2019-11-18] MEDS: IPRATROPIUM-ALBUTEROL 3 ML NEB INHALATION SCH ×4 (09:06→21:32)
--- NOTE | 2019-11-18 10:43 | P.PN ---
Subjective Progress Note Date: 11/18/19 This is a 69-year-old female patient who presented for a bronchoscopy with Dr. Crandall on 11/15/2019. Patient has a history of non-small cell lung CA with left- sided pneumonectomy in 2018 with chemo and radiation. Per Dr. Crandall with pulmonary service is patient presented to his office with stridor and shortness of breath. 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 Patient was taken for a bronchoscopy on 11/15/2019. According to reports of significant recurrent tumor within the trachea in the subglottic area. Patient was then transferred to the intensive care unit for IV Decadron and airway precautions. Patient has additional medical history of hyperlipidemia hypertension osteoarthritis heart cath and coronary artery bypass graft surgery. Did discuss case with a pulmonary critical care team recommending transferred to [facility] due to concerns over size of tracheal mass. Per Dr. Crandall case was discussed with Dr. Santoyo at [facility] for possible Yag laser treatment procedure for the tumor. Patient is currently resting comfortably in bed. Patient still having significant stridor. Patient remains on Decadron. Patient denies chest pain. Patient denies nausea vomiting or diarrhea. Patient denies any urinary burning or frequency Discussed case with pulmonary service, recommending transfer to [facility]. Per pulmonary, case was discussed with Dr. Ambrocio at [facility] per Dr. Crandall. [facility] has accepted patient awaiting bed placement case management aware. Did discuss case with oncology services recommending biopsy to be obtained at [facility]. Patient is currently maintained on IV Decadron vitals are stable. On 11/17/2019 patient is alert and oriented 3 still having some stridor. Awaiting bed at [facility]. Updated report given to [facility] possible bed availability in the next 24 hours per [facility]. Vitals remained stable. Patient remains on 2 L. Patient maintained on IV Decadron. At this t anne patient denies chest pain. Patient denies nausea vomiting or diarrhea. Patient denies any urinary burning or frequency. On 11/18/2019 patient alert and oriented 3. Still awaiting bed at [facility]. Case management following. Per pulmonary and critical care services ENT has been consulted due to severity of tracheal tumor. Patient remains on IV Decadron. Vitals remained stable. Patient denies chest pain. Patient denies nausea vomiting or diarrhea. Patient denies any urinary burning or frequency Objective - Vital Signs Vital signs: Vital Signs Temp 98.0 F 11/18/19 04:00 Pulse 80 11/18/19 10:00 Resp 20 11/18/19 10:00 BP 123/76 11/18/19 10:00 Pulse Ox 98 11/18/19 10:00 Intake & Output 11/17/19 11/18/19 11/18/19 18:59 06:59 18:59 Intake Total 1220 940 370 Output Total 0 Balance 1220 940 370 Weight 104 kg Intake: IV 260 220 20 Sodium Chloride 0.9% 1, 260 220 20 000 ml @ 20 mls/hr IV . Q24H [facility] Rx#:[id number] Oral 960 720 350 Output: Urine 0 Other: Voiding Method Toilet Toilet Toilet # Voids 1 1 0 - Exam Head normocephalic Neck supple. Stridor noted to upper airway Lungs diminished bilaterally Heart regular rate and rhythm S1-S2, no rub or gallop Abdomen is soft nontender nondistended positive bowel sounds no hepatosplenomegaly Extremities no edema Neuro alert and orientated to 3 - Labs CBC & Chem 7: 11/18/19 05:20 11/18/19 05:20 Labs: Abnormal Lab Results - Last 24 Hours (Table) 11/18/19 11/18/19 Range/Units 05:20 05:20 WBC 11.7 H (3.8-10.6) k/uL Neutrophils # 9.9 H (1.3-7.7) k/uL Sodium 135 L (137-145) mmol/L BUN 19 H (7-17) mg/dL Glucose 117 H (74-99) mg/dL ALT 39 H (4-34) U/L Assessment and Plan Assessment: 1. Tracheal mass with obstruction. Patient was seen by pulmonary services outpatient for stridor CT was done that showed evidence of probable recurrent cancer with tracheal involvement patient underwent bronchoscopy with Dr. Crandall on 11/15/2019 was found to have significant recurrence of tumor within the trachea in the subglottic area. Patient was transferred to the intensive care unit and started on IV Decadron. Discussed with pulmonary care team recommending transferred to [facility] for yag laser treatment of tracheal mass. Awaiting bed placement any [facility]. Per critical care team ENT has been consulted due to tracheal mass severity 2. 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 She also received chemo and radiation post procedure 3. History of hyperlipidemia patient maintained on statins IV 4. Essential hypertension Home mmedications resumed 5. History of coronary artery disease with coronary artery bypass graft surgery 6. History of anxiety and depression. Patient maintained on Xanax DVT prophylaxis SCDs due to possible surgical intervention at [facility]. GI prophylaxis Pepcid Transferred to [facility] in progress awaiting bed availability. Updated report given to [facility] I performed an examination of the patient and discussed their management with the Nurse Practitioner. I have reviewed the Nurse Practitioner's notes and agree with the documented findings and plan of care
--- NOTE | 2019-11-18 11:57 | P.PN ---
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 Patient was reevaluated today on 11/16/19, patient is in the ICU, and I had a chance to check with the patient regarding her bronchial findings, and I felt at this point it would be best to transfer the patient to [facility]. Patient obviously has a near complete occlusion of her trachea and she will most likely benefit from YAG laser of the endotracheal tumor, and that is to be done at [facility]. In the meantime the patient seems to be comfortable, she has minimal stridor, but in no distress. And the stridor is noted mostly with forced inspiratory and expiratory maneuver. Discussed her condition with the admitting physician and with Dr. Crandall, and we are all in agreement that the patient would benefit from referral to a tertiary care center. If the patient is to deteriorate at any point now, she will need an emergency tracheostomy. Patient seems to be stable enough for transfer, she is now on bronchodilators and on Decadron, and the process of transferring the patient to [facility] is in progress. Labs from today were all reviewed. Reevaluated today on 11/17/19, patient remains in the intensive care unit, doing fairly well, remains on Decadron, no further episodes of hemoptysis, stridor seems to be a bit less, patient is comfortable, awaiting a bed to open at [facility] for transfer. CBC is relatively normal basic metabolic profile is normal Reevaluated today on 11/18/19, patient remains in the intensive care unit, no major traveler changer the last 24 hours, still awaiting a bed to open up in the ICU at [facility]. Patient has been accepted, but no bed is available. In the meantime I discussed with the patient and her the need to have ENT evaluate, patient may require elective tracheostomy before she ends up being transferred specially with the transfer process is going to take too long. I am very concerned that the patient may have worsening tracheal obstruction, hence ENT consultation was initiated. In the meantime the patient remains on bronchodilators and on Decadron. All labs were noted to be relatively unremarkable Objective - Vital Signs Vital signs: Vital Signs Temp 98.0 F 11/18/19 04:00 Pulse 80 11/18/19 10:00 Resp 20 11/18/19 10:00 BP 123/76 11/18/19 10:00 Pulse Ox 98 11/18/19 10:00 Intake & Output 11/17/19 11/18/19 11/18/19 18:59 06:59 18:59 Intake Total 1220 940 390 Output Total 0 Balance 1220 940 390 Weight 104 kg Intake: IV 260 220 40 Sodium Chloride 0.9% 1, 260 220 40 000 ml @ 20 mls/hr IV . Q24H [facility] Rx#:[id number] Oral 960 720 350 Output: Urine 0 Other: Voiding Method Toilet Toilet Toilet # Voids 1 1 0 - Exam Physical Exam: Revealed 69-year-old female in no distress. On 2 L nasal cannula. Head: Atraumatic, normocephalic. HEENT:[Neck is supple.] [No neck masses.] [No thyromegaly.] [No JVD.], Minimal stridor on forced inspiratory and expiratory maneuver. Chest: [Diminished breath sounds on the left side, right side is relatively clear.] Cardiac Exam: [Normal S1 and S2, no S3 gallop, no murmur.] Abdomen: [Soft, nontender, no megaly, no rebound, no guarding, normal bowel sounds.] Extremities: [No clubbing, no edema, no cyanosis.] Neurological Exam: [No focal neurologic deficit.] Alert and oriented 3. Psychiatric: Normal mood affect and normal mental status examination. 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 Cytology was negative from Dr. Crandall's bronchoscopy. Stridor secondary to endotracheal mass and near complete occlusion of the trachea noted on bronchoscopy History of squamous cell carcinoma of the left lung and previous pneumonectomy in February of 2018. Benign essential hypertension. Hemoptysis secondary to above endotracheal mass. Recommendation: Continue present treatment plan. Awaiting for transfer to [facility]. Once a bed is available Transfer arrangements are in progress. In the meantime continue steroids, and bronchodilators, we'll continue to monitor closely. Will initiate ENT consultation to consider tracheostomy since the process may be a long time before the patient gets transferred. Time with Patient: Less than 30
[2019-11-18] MEDS: ATORVASTATIN 20 MG TAB PO SCH (22:17)
[2019-11-18 22:18] LABS: Glucose,Whole Blood 135 mg/dL (75-99)
[2019-11-19] MEDS: DEXAMETHASONE SOD PHOSPHATE 10 MG/ML 1 ML VIAL IV SCH ×5 (00:14→23:37)
[2019-11-19] MEDS: SODIUM CHLORIDE 0.9% 1,000 ML IV SCH (05:05)
[2019-11-19 06:00] LABS: Basophils % (A) 0 %; Eosinophils # (A) 0.1 k/uL (0-0.7); Eosinophils % (A) 1 %; HCT 41.9 % (34.0-46.0); HGB 13.4 gm/dL (11.4-16.0); Lymphocytes # (A) 0.9 k/uL (1.0-4.8); Lymphocytes % (A) 7 %; MCH 30.3 pg (25.0-35.0); MCHC 31.8 g/dL (31.0-37.0); MCV 95.2 fL (80.0-100.0); Monocytes # (A) 0.4 k/uL (0-1.0); Monocytes % (A) 4 %; Neutrophils # (A) 10.7 k/uL (1.3-7.7); Neutrophils % (A) 88 %; Platelet Count 246 k/uL (150-450); RBC 4.41 m/uL (3.80-5.40); RDW 12.8 % (11.5-15.5); WBC 12.2 k/uL (3.8-10.6)
[2019-11-19 06:21] LABS: ALT 36 U/L (4-34); AST 30 U/L (14-36); African American GFR (CKD) >90 (>60 ml/min/1.73 sqM); Albumin 3.5 g/dL (3.5-5.0); Alkaline Phosphatase 62 U/L (38-126); Anion Gap 11 mmol/L; Blood Urea Nitrogen 22 mg/dL (7-17); Calcium 9.1 mg/dL (8.4-10.2); Carbon Dioxide 22 mmol/L (22-30); Chloride 104 mmol/L (98-107); Glucose 124 mg/dL (74-99); Non-African American GFR(CKD) 89 (>60 ml/min/1.73 sqM); Potassium 4.3 mmol/L (3.5-5.1); Sodium 137 mmol/L (137-145); Total Bilirubin 0.4 mg/dL (0.2-1.3); Total Protein 6.4 g/dL (6.3-8.2)
[2019-11-19] MEDS: LOSARTAN 50 MG TAB PO SCH (08:50)
[2019-11-19] MEDS: FAMOTIDINE 20 MG TAB PO SCH (08:50)
[2019-11-19] MEDS: METOPROLOL TARTRATE 25 MG TAB PO SCH ×2 (08:50→21:08)
[2019-11-19] MEDS: MULTIVITAMINS, THERA 1 EACH TAB PO SCH (08:50)
[2019-11-19] MEDS: FLUoxetine HCL 20 MG CAP PO SCH (08:51)
[2019-11-19] MEDS: ALPRAZolam 0.5 MG TAB PO PRN ×3 (08:51→23:37)
[2019-11-19] MEDS: HYDROCHLOROTHIAZIDE 12.5 MG CAP PO SCH (08:52)
[2019-11-19] MEDS: EZETIMIBE 10 MG TAB PO SCH (08:52)
[2019-11-19] MEDS: IPRATROPIUM-ALBUTEROL 3 ML NEB INHALATION SCH ×4 (09:10→19:10)
[2019-11-19] MEDS: SYMBICORT 80-4.5 MCG INHALER INHALATION SCH ×2 (09:15→19:17)
--- NOTE | 2019-11-19 10:14 | P.PN ---
Subjective Progress Note Date: 11/19/19 This is a 69-year-old female patient who presented for a bronchoscopy with Dr. Crandall on 11/15/2019. Patient has a history of non-small cell lung CA with left- sided pneumonectomy in 2018 with chemo and radiation. Per Dr. Crandall with pulmonary service is patient presented to his office with stridor and shortness of breath. 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 Patient was taken for a bronchoscopy on 11/15/2019. According to reports of significant recurrent tumor within the trachea in the subglottic area. Patient was then transferred to the intensive care unit for IV Decadron and airway precautions. Patient has additional medical history of hyperlipidemia hypertension osteoarthritis heart cath and coronary artery bypass graft surgery. Did discuss case with a pulmonary critical care team recommending transferred to [facility] due to concerns over size of tracheal mass. Per Dr. Crandall case was discussed with Dr. Santoyo at [facility] for possible Yag laser treatment procedure for the tumor. Patient is currently resting comfortably in bed. Patient still having significant stridor. Patient remains on Decadron. Patient denies chest pain. Patient denies nausea vomiting or diarrhea. Patient denies any urinary burning or frequency Discussed case with pulmonary service, recommending transfer to [facility]. Per pulmonary, case was discussed with Dr. Ambrocio at [facility] per Dr. Crandall. [facility] has accepted patient awaiting bed placement case management aware. Did discuss case with oncology services recommending biopsy to be obtained at [facility]. Patient is currently maintained on IV Decadron vitals are stable. On 11/17/2019 patient is alert and oriented 3 still having some stridor. Awaiting bed at [facility]. Updated report given to [facility] possible bed availability in the next 24 hours per [facility]. Vitals remained stable. Patient remains on 2 L. Patient maintained on IV Decadron. At this t anne patient denies chest pain. Patient denies nausea vomiting or diarrhea. Patient denies any urinary burning or frequency. On 11/18/2019 patient alert and oriented 3. Still awaiting bed at [facility]. Case management following. Per pulmonary and critical care services ENT has been consulted due to severity of tracheal tumor. Patient remains on IV Decadron. Vitals remained stable. Patient denies chest pain. Patient denies nausea vomiting or diarrhea. Patient denies any urinary burning or frequency On 11/19/2019 patient remains alert and oriented 3 vitals have remained stable. Still waiting on bed placement at [facility]. Did discuss case with pulmonary critical care team recommending attempting transfer to [facility]. ENT also following for possible tracheostomy due to severity of tracheal tumor. Patient remains on IV Decadron.. Case management following we'll initiate transfer to [facility]. Objective - Vital Signs Vital signs: Vital Signs Temp 98.2 F 11/19/19 08:00 Pulse 80 11/19/19 09:24 Resp 22 11/19/19 09:00 BP 161/96 11/19/19 09:00 Pulse Ox 96 11/19/19 09:00 Intake & Output 11/18/19 11/19/19 11/19/19 18:59 06:59 18:59 Intake Total 770 200 250 Output Total 0 Balance 770 200 250 Weight 105 kg Intake: IV 20 Sodium Chloride 0.9% 1, 20 000 ml @ 20 mls/hr IV . Q24H [facility] Rx#:[id number] Oral 350 200 250 Tube Feeding 400 Output: Urine 0 Other: Voiding Method Toilet Toilet Toilet # Voids 1 1 0 - Exam Head normocephalic Neck supple. Stridor noted to upper airway Lungs diminished bilaterally Heart regular rate and rhythm S1-S2, no rub or gallop Abdomen is soft nontender nondistended positive bowel sounds no hepatosplenomegaly Extremities no edema Neuro alert and orientated to 3 - Labs CBC & Chem 7: 11/19/19 05:05 11/19/19 05:05 Labs: Abnormal Lab Results - Last 24 Hours (Table) 11/18/19 11/19/19 11/19/19 Range/Units 22:16 05:05 05:05 WBC 12.2 H (3.8-10.6) k/uL Neutrophils # 10.7 H (1.3-7.7) k/uL Lymphocytes # 0.9 L (1.0-4.8) k/uL BUN 22 H (7-17) mg/dL Glucose 124 H (74-99) mg/dL POC Glucose (mg/dL) 135 H (75-99) mg/dL ALT 36 H (4-34) U/L Assessment and Plan Assessment: 1. Tracheal mass with obstruction. Patient was seen by pulmonary services outpatient for stridor CT was done that showed evidence of probable recurrent cancer with tracheal involvement patient underwent bronchoscopy with Dr. Crandall on 11/15/2019 was found to have significant recurrence of tumor within the trachea in the subglottic area. Patient was transferred to the intensive care unit and started on IV Decadron. Discussed with pulmonary care team recommending transferred to [facility] for yag laser treatment of tracheal mass. Awaiting bed placement any [facility]. Per critical care team ENT has been consulted due to tracheal mass severity 2. 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 She also received chemo and radiation post procedure 3. History of hyperlipidemia patient maintained on statins 4. Essential hypertension Home mmedications resumed 5. History of coronary artery disease with coronary artery bypass graft surgery 6. History of anxiety and depression. Patient maintained on Xanax DVT prophylaxis SCDs due to possible surgical intervention at [facility]. GI prophylaxis Pepcid Transferred to [facility] in progress awaiting bed availability. Updated report given to [facility] Transferred to the [facility] will also be initiated per pulmonary recommendation Dr. Mckinney per ENT also consulted for possible tracheostomy I performed an examination of the patient and discussed their management with the Nurse Practitioner. I have reviewed the Nurse Practitioner's notes and agree with the documented findings and plan of care
--- NOTE | 2019-11-19 12:14 | P.PN ---
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 Patient was reevaluated today on 11/16/19, patient is in the ICU, and I had a chance to check with the patient regarding her bronchial findings, and I felt at this point it would be best to transfer the patient to . Patient obviously has a near complete occlusion of her trachea and she will most likely benefit from YAG laser of the endotracheal tumor, and that is to be done at . In the meantime the patient seems to be comfortable, she has minimal stridor, but in no distress. And the stridor is noted mostly with forced inspiratory and expiratory maneuver. Discussed her condition with the admitting physician and with Dr. Crandall, and we are all in agreement that the patient would benefit from referral to a tertiary care center. If the patient is to deteriorate at any point now, she will need an emergency tracheostomy. Patient seems to be stable enough for transfer, she is now on bronchodilators and on Decadron, and the process of transferring the patient to [facility] is in progress. Labs from today were all reviewed. Reevaluated today on 11/17/19, patient remains in the intensive care unit, doing fairly well, remains on Decadron, no further episodes of hemoptysis, stridor seems to be a bit less, patient is comfortable, awaiting a bed to open at for transfer. CBC is relatively normal basic metabolic profile is normal Reevaluated today on 11/18/19, patient remains in the intensive care unit, no major slip box changer the last 24 hours, still awaiting a bed to open up in the ICU at . Patient has been accepted, but no bed is available. In the meantime I discussed with the patient and her the need to have ENT evaluate, patient may require elective tracheostomy before she ends up being transferred specially with the transfer process is going to take too long. I am very concerned that the patient may have worsening tracheal obstruction, hence ENT consultation was initiated. In the meantime the patient remains on bronchodilators and on Decadron. All labs were noted to be relatively unremarkable Reevaluated today on 11/19/19, patient is basically about the same. Still waiting for a bed at , in the meantime I discussed with Dr. Nitin Mckinney that the patient may require elective tracheostomy, and he will review the chart, and possibly arrange for this to be done today specially the patient does not end up getting a bed later today at . If no bed, patient will likely need tracheostomy however if a bed becomes available, patient could be transferred to today. Patient ate breakfast this morning, and he plans to come back and see her sometime this afternoon. I contacted many people at , and now she is on a priority list to be the first patient to be transferred once a bed is available in the ICU or the stepdown unit. Patient is very comfortable, very minimal stridor if any, and in no distress. Remains on Decadron and on bronchodilators. Objective - Vital Signs Vital signs: Vital Signs Temp 98.2 F 11/19/19 08:00 Pulse 44 L 11/19/19 11:00 Resp 13 11/19/19 11:00 BP 138/78 11/19/19 11:00 Pulse Ox 96 11/19/19 11:00 Intake & Output 11/18/19 11/19/19 11/19/19 18:59 06:59 18:59 Intake Total 770 200 250 Output Total 0 Balance 770 200 250 Weight 105 kg Intake: IV 20 Sodium Chloride 0.9% 1, 20 000 ml @ 20 mls/hr IV . Q24H [facility] Rx#:[id number] Oral 350 200 250 Tube Feeding 400 Output: Urine 0 Other: Voiding Method Toilet Toilet Toilet # Voids 1 1 0 - Exam Physical Exam: Revealed 69-year-old female in no distress. On 2 L nasal cannula. Head: Atraumatic, normocephalic. HEENT:[Neck is supple.] [No neck masses.] [No thyromegaly.] [No JVD.], Minimal stridor on forced inspiratory and expiratory maneuver. Chest: [Diminished breath sounds on the left side, right side is relatively clear.] Cardiac Exam: [Normal S1 and S2, no S3 gallop, no murmur.] Abdomen: [Soft, nontender, no megaly, no rebound, no guarding, normal bowel sounds.] Extremities: [No clubbing, no edema, no cyanosis.] Neurological Exam: [No focal neurologic deficit.] Alert and oriented 3. Psychiatric: Normal mood affect and normal mental status examination. 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 Cytology was negative from Dr. Crandall's bronchoscopy. Stridor secondary to endotracheal mass and near complete occlusion of the trachea noted on bronchoscopy History of squamous cell carcinoma of the left lung and previous pneumonectomy in February of 2018. Benign essential hypertension. Hemoptysis secondary to above endotracheal mass. Resolved. Recommendation: Continue present treatment plan. Awaiting for transfer to . Once a bed is available, she is now priority 1 to be the first patient to be transferred once a bed is available. Discussed her condition with Dr. Nitin Mckinney/ENT physician, he is made very aware of the patient, and he would likely perform tracheostomy on this patient if no transfer could be done today. Transfer arrangements are in progress. In the meantime continue steroids, and bronchodilators, we'll continue to monitor closely. \Discussed her condition with her and with her family members including and son at bedside. Time with Patient: Less than 30
[2019-11-19] MEDS ORDERED: DEXAMETHASONE SOD PHOSPHATE 4 MG/ML 1 ML VIAL IV STA (13:54)
[2019-11-19] MEDS ORDERED: ALPRAZolam 0.5 MG TAB PO SCH (16:00)
[2019-11-19] MEDS: ATORVASTATIN 20 MG TAB PO SCH (21:08)
[2019-11-20 05:43] LABS: Basophils % (A) 0 %; Eosinophils # (A) 0.1 k/uL (0-0.7); Eosinophils % (A) 1 %; HCT 42.3 % (34.0-46.0); HGB 13.9 gm/dL (11.4-16.0); Lymphocytes # (A) 0.9 k/uL (1.0-4.8); Lymphocytes % (A) 7 %; MCH 30.9 pg (25.0-35.0); MCHC 32.8 g/dL (31.0-37.0); MCV 94.5 fL (80.0-100.0); Mean Platelet Volume 9.2; Monocytes # (A) 0.4 k/uL (0-1.0); Monocytes % (A) 3 %; Neutrophils # (A) 11.7 k/uL (1.3-7.7); Neutrophils % (A) 89 %; Platelet Count 242 k/uL (150-450); RBC 4.48 m/uL (3.80-5.40); RDW 12.8 % (11.5-15.5); WBC 13.1 k/uL (3.8-10.6)
[2019-11-20 05:52] LABS: ALT 46 U/L (4-34); AST 33 U/L (14-36); African American GFR (CKD) >90 (>60 ml/min/1.73 sqM); Albumin 3.5 g/dL (3.5-5.0); Alkaline Phosphatase 68 U/L (38-126); Anion Gap 5 mmol/L; Blood Urea Nitrogen 26 mg/dL (7-17); Carbon Dioxide 27 mmol/L (22-30); Chloride 102 mmol/L (98-107); Glucose 119 mg/dL (74-99); Non-African American GFR(CKD) 89 (>60 ml/min/1.73 sqM); Potassium 4.1 mmol/L (3.5-5.1); Sodium 134 mmol/L (137-145); Total Bilirubin 0.3 mg/dL (0.2-1.3); Total Protein 6.3 g/dL (6.3-8.2)
[2019-11-20] MEDS: DEXAMETHASONE SOD PHOSPHATE 10 MG/ML 1 ML VIAL IV SCH (06:01)
[2019-11-20] MEDS: ALPRAZolam 0.5 MG TAB PO PRN (07:00)
[2019-11-20] MEDS: IPRATROPIUM-ALBUTEROL 3 ML NEB INHALATION SCH (07:40)
[2019-11-20] MEDS: SYMBICORT 80-4.5 MCG INHALER INHALATION SCH (07:40)
[2019-11-20 08:49] VITALS: RESP 14; TEMP 97.3
[2019-11-20] MEDS: LOSARTAN 50 MG TAB PO SCH (08:53)
[2019-11-20] MEDS: FLUoxetine HCL 20 MG CAP PO SCH (08:53)
[2019-11-20] MEDS: FAMOTIDINE 20 MG TAB PO SCH (08:54)
[2019-11-20] MEDS: MULTIVITAMINS, THERA 1 EACH TAB PO SCH (08:54)
[2019-11-20] MEDS: EZETIMIBE 10 MG TAB PO SCH (08:54)
[2019-11-20] MEDS: HYDROCHLOROTHIAZIDE 12.5 MG CAP PO SCH (08:54)
[2019-11-20] MEDS: SODIUM CHLORIDE 0.9% 1,000 ML IV SCH (08:57)
--- NOTE | 2019-11-20 09:01 | CONS ---
CONSULTATION DATE OF CONSULTATION: 11/19/2019 REASON FOR CONSULTATION: Evaluation for possible tracheostomy due to tracheal obstruction from a recurrent malignancy. HISTORY OF PRESENT ILLNESS: This patient is a very pleasant 69-year-old female who was originally seen in Dr. Crandall's office on 11/15/2019. At that time she was noted to have significant stridor and subsequently Dr. Crandall performed a bronchoscopy on this patient and noted that although there were no suspicious lesions in the hypopharynx or in the glottic or laryngeal area, there was noted to be a polypoid mass which most likely represented recurrent or metastatic tumor in the subglottic region. He notes that at the time of the bronchoscopy there was some bleeding and therefore no biopsies were performed. A subsequent CT scan of the chest revealed partial obstruction of the trachea due to a mass. I reviewed this CT scan, both alone and also in the company of one of the hospital's radiologists. We both concur that there is a polypoid/globular lesion in the subglottic area which may represent recurrent tumor or an extension of the patient's tumor. In addition to this, because there was a consideration of doing a tracheostomy on this patient, further evaluation by the radiologist and myself revealed that the majority of the patient's obstruction was located near the thoracic inlet, where it was noted that the trachea was partially obstructed by a mass that was apparently invading the posterior wall of the trachea and partially obstructing the lumen of the trachea so that the lumen appeared to be not much larger than a drinking straw. That is to say, the majority of this patient's tracheal obstruction appears to be between the gab and the lower part of the thyroid cartilage. Although there is an apparent normal caliber trachea between these areas, it is noted that in the area where a tracheostomy would be inserted, mainly between the third and fourth tracheal rings, that this would still be above the obstruction and therefore the tracheostomy would essentially be useless. Certainly, if the obstruction was only at the subglottic or the glottic level, the treatment would be to perform a tracheostomy to improve this patient's airway. However, because of the location of the obstruction being below the tip of the tracheostomy tube, it would serve no useful purpose to perform a tracheostomy. I discussed this with Dr. Roper over the telephone. He related that had spoken to the jira administrator at [facility] and that this patient's case had been moved to priority and they were simply waiting to find a bed so that they could transfer her. The plan is for her to be transferred and at that time they will most likely use a YAG laser in an effort to improve the caliber of the patient's airway in the lower trachea. It may be possible to place a small stent in this area afterward. Certainly, that decision will be made by the surgeon at [facility]. PAST MEDICAL HISTORY: Past medical history reveals that the patient has an allergy to ADHESIVE TAPE. Her home medications include Combivent, tramadol, Advair, Prozac, Zetia, Lipitor, Xanax, Benicar/HCTZ and, finally, Lopressor. REVIEW OF SYSTEMS: Review of systems reveals that the cardiovascular system is positive for hypertension. Respiratory is positive for COPD (it is of note that the patient has had a left-sided pneumonectomy in 2018). Gastrointestinal system is negative. Metabolic/endocrine system is positive for hypercholesterolemia. The remainder of the review of systems is essentially unremarkable. OBJECTIVE: HEENT: The patient is normocephalic. Tympanic membranes are normal and middle ear spaces are free of any fluid or infection. Pupils are equal, round, and reactive to light and accommodation. Extraocular movements within normal limits. Intranasal examination reveals moderate to severe septal deviation with compensatory hypertrophy of the inferior turbinates bilaterally. There is a moderate amount of clear mucus on the mucous membranes, draining down the posterior pharynx. Examination of the oropharynx is unremarkable. Palpation of the neck is negative for any neck masses or lymphadenopathy. Findings in the neck as are described above with respect to the findings on the CT scan, namely there is partial obstruction of the trachea at the thoracic inlet caused by intrusion of the posterior tracheal wall by the probable malignant mass. Cranial nerves 2 through 12 and the remainder of the head and neck exam is unremarkable. CHEST/CARDIOVASCULAR: Both lung maguire are clear. The lung sounds are obviously diminished on the left side. Examination of the right side reveals very few wheezes with no actual rhonchi or rales. The patient is in a regular sinus rhythm, S1 and S2 are present without evidence of murmurs, S3, or S4. ABDOMEN: There is no evidence of any masses, megaly, or tenderness. The abdomen is soft. The remainder of the physical exam is unremarkable. IMPRESSION: Partial lower tracheal obstruction due to recurrent tumor (non-small cell carcinoma). PLAN: Again, I discussed this case with Dr. Roper, after seeing the patient, by phone. As I related above, I reviewed the CT scan with the radiologist and we both concur that the obstruction is at the thoracic inlet; and therefore, performing a tracheostomy, which would be between the third and fourth tracheal ring, would place the tracheostomy tube above the patient's obstruction and therefore would not be very helpful. At this time the patient does not appear to be having any severe stridor except on exertion. Hopefully, [facility] will secure a bed so that this patient can be transferred to [facility]. I want to take this opportunity to thank you for allowing me to participate in the care of your patient. I will see her on a daily basis and I will be available for further ENT consult. I recommend increasing her Decadron from 6 mg q.6 to 10 mg q.6 to hopefully give additional anti-inflammatory effect and perhaps improve her airway by a few millimeters. In addition to this, I am requesting that we increase her Xanax from 0.5 mg b.i.d. to t.i.d. Certainly this will take care of any jitteriness or nervousness that the increase in the steroid might cause. If I can be of any further assistance, please feel free to call my office. BHAVNA / BAYLEE: [id number] /
[2019-11-20 09:35] VITALS: BP 123/57; PULSE 51
== END 2019-11-20 09:26 | disposition short-term general hospital (02) | DRG 181 ==
LOC: ORWHC2ENDO 13:49 → 2SICU 15:46
PROVIDERS: ADMIT Internal Medicine Critical Care Medicine; ATTEND Internal Medicine Critical Care Medicine
PROC: 0B918ZX Drainage of Trachea, Via Natural or Artificial Opening Endoscopic, Diagnostic (ICD-10-PCS; principal; 2019-11-15 07:55)
DX: C78.39 Secondary malignant neoplasm of other respiratory organs (principal); R04.2 Hemoptysis; J39.8 Other specified diseases of upper respiratory tract; R06.1 Stridor; R13.10 Dysphagia, unspecified; J44.9 Chronic obstructive pulmonary disease, unspecified; J34.2 Deviated nasal septum; J34.3 Hypertrophy of nasal turbinates; E78.00 Pure hypercholesterolemia, unspecified; E78.5 Hyperlipidemia, unspecified; I10 Essential (primary) hypertension; I25.10 Atherosclerotic heart disease of native coronary artery without angina pectoris; M19.90 Unspecified osteoarthritis, unspecified site; F41.9 Anxiety disorder, unspecified; F32.9 Major depressive disorder, single episode, unspecified; E66.9 Obesity, unspecified; Z68.37 Body mass index [BMI] 37.0-37.9, adult; Z79.51 Long term (current) use of inhaled steroids; Z79.899 Other long term (current) drug therapy; Z87.891 Personal history of nicotine dependence; Z85.118 Personal history of other malignant neoplasm of bronchus and lung; Z90.2 Acquired absence of lung [part of]; Z92.21 Personal history of antineoplastic chemotherapy; Z92.3 Personal history of irradiation; Z95.1 Presence of aortocoronary bypass graft; Z90.49 Acquired absence of other specified parts of digestive tract; Z98.890 Other specified postprocedural states; Z91.048 Other nonmedicinal substance allergy status; Z83.2 Family history of diseases of the blood and blood-forming organs and certain disorders involving the immune mechanism
CPT/HCPCS: 31624; 70490; 71045; 80053; 85025; 85027; 88108; 88305; 94640

== ENCOUNTER 2019-11-26 | Emergency (ER) | payer MEDICARE, OTHER | END 2019-11-26 12:42 | disposition home or self-care (01) | CPT/HCPCS: 36415; 70450; 71046; 80053; 81001; 82140; 82533; 82550; 83605; 84443; 85025; 87502; 93005; 96360; 96361; 99284 ==

== ENCOUNTER 2019-12-01 14:50 | Emergency (ER) | payer MEDICARE, OTHER ==
[2019-12-01] MEDS ORDERED: ALBUTEROL NEBULIZED 2.5 MG/3 ML INHALATION STA (15:05)
[2019-12-01] MEDS ORDERED: IPRATROPIUM-ALBUTEROL 3 ML NEB INHALATION STA (15:05)
[2019-12-01 15:26] LABS: Basophils % (A) 0 %; Eosinophils # (A) 0.1 k/uL (0-0.7); Eosinophils % (A) 1 %; HCT 37.5 % (34.0-46.0); Lymphocytes # (A) 0.4 k/uL (1.0-4.8); Lymphocytes % (A) 4 %; MCH 30.6 pg (25.0-35.0); MCHC 32.1 g/dL (31.0-37.0); MCV 95.3 fL (80.0-100.0); Mean Platelet Volume 8.2; Monocytes # (A) 0.4 k/uL (0-1.0); Monocytes % (A) 4 %; Neutrophils # (A) 7.6 k/uL (1.3-7.7); Neutrophils % (A) 90 %; Platelet Count 189 k/uL (150-450); RBC 3.94 m/uL (3.80-5.40); WBC 8.5 k/uL (3.8-10.6)
--- NOTE | 2019-12-01 15:36 | XR ---
EXAMINATION TYPE: XR chest 1V portable DATE OF EXAM: 12/01/2019 COMPARISON: Prior chest x-ray 11/26/2019 HISTORY: Tracheal tumor, difficulty breathing TECHNIQUE: Single frontal view of the chest is obtained. FINDINGS: Post left pneumonectomy changes again noted. Tubular air column over the left chest may be due to air within the esophagus. Tracheal stent is again noted at the level of the thoracic inlet. P atient is post median sternotomy. Volume loss present in left hemithorax. Right lung is clear. There are overlying cardiac leads. No evident pneumothorax. IMPRESSION: Postprocedural changes as described.
[2019-12-01 15:40] LABS: ALT 161 U/L (4-34); AST 91 U/L (14-36); African American GFR (CKD) >90 (>60 ml/min/1.73 sqM); Albumin 3.4 g/dL (3.5-5.0); Alkaline Phosphatase 140 U/L (38-126); Anion Gap 10 mmol/L; Blood Urea Nitrogen 13 mg/dL (7-17); Carbon Dioxide 26 mmol/L (22-30); Chloride 100 mmol/L (98-107); Glucose 142 mg/dL (74-99); Magnesium 2.3 mg/dL (1.6-2.3); Non-African American GFR(CKD) >90 (>60 ml/min/1.73 sqM); Potassium 4.5 mmol/L (3.5-5.1); Sodium 136 mmol/L (137-145); Total Bilirubin 0.6 mg/dL (0.2-1.3); Total Protein 6.5 g/dL (6.3-8.2)
[2019-12-01 15:41] LABS: Prothrombin Time 10.1 sec (9.0-12.0)
[2019-12-01 16:02] LABS: Partial Thromboplastin Time 20.7 sec (22.0-30.0)
[2019-12-01] MEDS ORDERED: DEXAMETHASONE SOD PHOSPHATE 10 MG/ML 1 ML VIAL IV STA (16:23)
[2019-12-01] MEDS ORDERED: CEFEPIME 2 GM in SODIUM CHLORIDE 0.9% 100 ML IVPB STA (16:35)
--- NOTE | 2019-12-01 16:35 | ED ---
General Adult HPI - General Chief complaint: Shortness of Breath Stated complaint: MC Time Seen by Provider: 12/01/19 14:51 Source: patient, EMS, RN notes reviewed, old records reviewed Mode of arrival: EMS Limitations: no limitations - History of Present Illness Initial comments: 69-year-old female history of lung CVA status post left pneumonectomy, history of tracheal stent presenting with dyspnea. Patient was discharged from outside hospital within the last 1 week. She had a prolonged ICU stay both at this institution and [facility]. She received IV steroids. She is presenting with dyspnea which is on changed from the time of discharge. Her symptoms persist. She was treated with courses Decadron and has been on a down Taper. She has no known history of COPD, no history of heart failure. She is currently under the care of of oncology. Denies fever. Denies central chest pain. - Related Data Home Medications Medication Instructions Recorded Confirmed ALPRAZolam [Xanax] 0.5 mg PO HS PRN 02/09/18 11/26/19 Ezetimibe [Zetia] 10 mg PO DAILY 02/09/18 11/26/19 FLUoxetine HCL [PROzac] 20 mg PO DAILY 02/09/18 11/26/19 Multivitamins, Thera [Multivitamin 1 tab PO DAILY 02/09/18 11/26/19 (formulary)] Olmesartan/Hydrochlorothiazide 1 tab PO QAM 02/09/18 11/26/19 [Benicar Hct 40-12.5 mg Tablet] Fluticasone/Salmeterol [Advair 1 inhalation PO RT-BID 03/10/18 11/26/19 250-50 Diskus] Ipratropium/Albuterol Sulfate 1 puff INHALATION RT-QID 03/10/18 11/26/19 [Combivent Respimat Inhaler] Metoprolol Tartrate [Lopressor] 25 mg PO BID 03/10/18 11/26/19 Aspirin [Adult Low Dose Aspirin EC] 81 mg PO DAILY 11/26/19 11/26/19 Atorvastatin [Lipitor] 10 mg PO HS 11/26/19 11/26/19 Furosemide [Lasix] 20 mg PO DAILY PRN 11/26/19 11/26/19 traMADol HCl [Ultram] 50 mg PO Q8H PRN 11/26/19 11/26/19 Allergies Allergy/AdvReac Type Severity Reaction Status Date / Time adhesive tape Allergy blistered Verified 11/26/19 11:03 skin/paper tape is ok Review of Systems ROS Statement: Those systems with pertinent positive or pertinent negative responses have been documented in the HPI. ROS Other: All systems not noted in ROS Statement are negative. 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 History of Any Multi-Drug Resistant Organisms: None Reported Past Surgical History: Appendectomy, Cholecystectomy, Coronary Bypass/CABG, Heart Catheterization Additional Past Surgical History / Comment(s): lt lung removed ,triple bypass-1997 Past Anesthesia/Blood Transfusion Reactions: No Reported Reaction Past Psychological History: Anxiety, Depression Smoking Status: Former smoker Past Alcohol Use History: None Reported Past Drug Use History: None Reported - Past Family History Brother(s) Family Medical History: Deep Vein Thrombosis (DVT) General Exam Limitations: no limitations General appearance: alert, in no apparent distress Head exam: Present: atraumatic, normocephalic Eye exam: Present: normal appearance, PERRL ENT exam: Present: normal oropharynx Neck exam: Present: normal inspection. Absent: tenderness Respiratory exam: Present: respiratory distress, rhonchi, decreased breath s ounds, other (Transmitted upper sounds, diffuse rhonchi.). Absent: stridor Cardiovascular Exam: Present: regular rate, normal rhythm GI/Abdominal exam: Present: soft. Absent: distended, tenderness, guarding Extremities exam: Present: normal inspection, normal capillary refill. Absent: pedal edema Neurological exam: Present: alert, oriented X3 Psychiatric exam: Present: anxious Skin exam: Present: warm, dry, intact. Absent: cyanosis, diaphoretic Course Vital Signs 12/01/19 12/01/19 12/01/19 14:54 15:08 15:20 Temperature 97.9 F Pulse Rate 113 H 103 H Respiratory 24 24 Rate Blood Pressure 127/101 O2 Sat by Pulse 97 Oximetry 12/01/19 12/01/19 15:39 16:04 Temperature 98.2 F Pulse Rate 105 H 112 H Respiratory 22 Rate Blood Pressure 127/77 O2 Sat by Pulse 95 Oximetry - Reevaluation(s) Reevaluation #1: 12/01/19 16:35 Reevaluated, vital signs stable. She does have persistent noisy respirations, no hypoxia. Mild tachypnea. EKG Findings - EKG Comments: EKG Findings:: EKG: Sinus tachycardia, no ST segment elevation, T-wave inversion and Q waves in lead 3, rate of 104, AL interval 128, QRS duration 88, QTC 447 Procedures - [place] Protocol (Time Out) Nurse: Elda Peoples Medical Decision Making - Medical Decision Making 69-year-old female status post pneumonectomy with history of lung CVA, tracheal stent for upper airway obstruction presenting with dyspnea. Patient has rhonchorous breath sounds diminished on the left, this is consistent with transmitted upper airway sounds. Chest x-ray left pneumonectomy, tracheal stent in place. Patient has a normal CBC, mild lactic acid of 2.3. I suspect her respiratory issues are related to tracheitis and tracheal inflammation in the setting of tracheal stent and previous pneumonectomy. I discussed case with her primary care physician Dr. Santillan who is very familiar with this patient. We will admit for IV antibiotics, steroids, close monitoring. Pulmonology placed on consult. - Lab Data Result diagrams: 12/01/19 15:05 12/01/19 15:05 Lab Results 12/01/19 12/01/19 12/01/19 Range/Units 15:05 15:05 15:05 WBC 8.5 (3.8-10.6) k/uL RBC 3.94 (3.80-5.40) m/uL Hgb 12.0 (11.4-16.0) gm/dL Hct 37.5 (34.0-46.0) % MCV 95.3 (80.0-100.0) fL MCH 30.6 (25.0-35.0) pg MCHC 32.1 (31.0-37.0) g/dL RDW 13.0 (11.5-15.5) % Plt Count 189 (150-450) k/uL Neutrophils % 90 % Lymphocytes % 4 % Monocytes % 4 % Eosinophils % 1 % Basophils % 0 % Neutrophils # 7.6 (1.3-7.7) k/uL Lymphocytes # 0.4 L (1.0-4.8) k/uL Monocytes # 0.4 (0-1.0) k/uL Eosinophils # 0.1 (0-0.7) k/uL Basophils # 0.0 (0-0.2) k/uL PT 10.1 (9.0-12.0) sec INR 1.0 (<1.2) APTT 20.7 L (22.0-30.0) sec Sodium 136 L (137-145) mmol/L Potassium 4.5 (3.5-5.1) mmol/L Chloride 100 (98-107) mmol/L Carbon Dioxide 26 (22-30) mmol/L Anion Gap 10 mmol/L BUN 13 (7-17) mg/dL Creatinine 0.55 (0.52-1.04) mg/dL Est GFR (CKD-EPI)AfAm >90 (>60 ml/min/1.73 sqM) Est GFR (CKD-EPI)NonAf >90 (>60 ml/min/1.73 sqM) Glucose 142 H (74-99) mg/dL Plasma Lactic Acid Panchito (0.7-2.0) mmol/L Calcium 9.0 (8.4-10.2) mg/dL Magnesium 2.3 (1.6-2.3) mg/dL Total Bilirubin 0.6 (0.2-1.3) mg/dL AST 91 H (14-36) U/L ALT 161 H (4-34) U/L Alkaline Phosphatase 140 H (38-126) U/L Troponin I (0.000-0.034) ng/mL NT-Pro-B Natriuret Pep pg/mL Total Protein 6.5 (6.3-8.2) g/dL Albumin 3.4 L (3.5-5.0) g/dL Influenza Type A RNA (Not Detectd) Influenza Type B (PCR) (Not Detectd) 12/01/19 12/01/19 12/01/19 Range/Units 15:05 15:05 15:05 WBC (3.8-10.6) k/uL RBC (3.80-5.40) m/uL Hgb (11.4-16.0) gm/dL Hct (34.0-46.0) % MCV (80.0-100.0) fL MCH (25.0-35.0) pg MCHC (31.0-37.0) g/dL RDW (11.5-15.5) % Plt Count (150-450) k/uL Neutrophils % % Lymphocytes % % Monocytes % % Eosinophils % % Basophils % % Neutrophils # (1.3-7.7) k/uL Lymphocytes # (1.0-4.8) k/uL Monocytes # (0-1.0) k/uL Eosinophils # (0-0.7) k/uL Basophils # (0-0.2) k/uL PT (9.0-12.0) sec INR (<1.2) APTT (22.0-30.0) sec Sodium (137-145) mmol/L Potassium (3.5-5.1) mmol/L Chloride (98-107) mmol/L Carbon Dioxide (22-30) mmol/L Anion Gap mmol/L BUN (7-17) mg/dL Creatinine (0.52-1.04) mg/dL Est GFR (CKD-EPI)AfAm (>60 ml/min/1.73 sqM) Est GFR (CKD-EPI)NonAf (>60 ml/min/1.73 sqM) Glucose (74-99) mg/dL Plasma Lactic Acid Panchito 2.3 H* (0.7-2.0) mmol/L Calcium (8.4-10.2) mg/dL Magnesium (1.6-2.3) mg/dL Total Bilirubin (0.2-1.3) mg/dL AST (14-36) U/L ALT (4-34) U/L Alkaline Phosphatase (38-126) U/L Troponin I 0.014 (0.000-0.034) ng/mL NT-Pro-B Natriuret Pep 1860 pg/mL Total Protein (6.3-8.2) g/dL Albumin (3.5-5.0) g/dL Influenza Type A RNA (Not Detectd) Influenza Type B (PCR) (Not Detectd) 12/01/19 Range/Units 15:05 WBC (3.8-10.6) k/uL RBC (3.80-5.40) m/uL Hgb (11.4-16.0) gm/dL Hct (34.0-46.0) % MCV (80.0-100.0) fL MCH (25.0-35.0) pg MCHC (31.0-37.0) g/dL RDW (11.5-15.5) % Plt Count (150-450) k/uL Neutrophils % % Lymphocytes % % Monocytes % % Eosinophils % % Basophils % % Neutrophils # (1.3-7.7) k/uL Lymphocytes # (1.0-4.8) k/uL Monocytes # (0-1.0) k/uL Eosinophils # (0-0.7) k/uL Basophils # (0-0.2) k/uL PT (9.0-12.0) sec INR (<1.2) APTT (22.0-30.0) sec Sodium (137-145) mmol/L Potassium (3.5-5.1) mmol/L Chloride (98-107) mmol/L Carbon Dioxide (22-30) mmol/L Anion Gap mmol/L BUN (7-17) mg/dL Creatinine (0.52-1.04) mg/dL Est GFR (CKD-EPI)AfAm (>60 ml/min/1.73 sqM) Est GFR (CKD-EPI)NonAf (>60 ml/min/1.73 sqM) Glucose (74-99) mg/dL Plasma Lactic Acid Panchito (0.7-2.0) mmol/L Calcium (8.4-10.2) mg/dL Magnesium (1.6-2.3) mg/dL Total Bilirubin (0.2-1.3) mg/dL AST (14-36) U/L ALT (4-34) U/L Alkaline Phosphatase (38-126) U/L Troponin I (0.000-0.034) ng/mL NT-Pro-B Natriuret Pep pg/mL Total Protein (6.3-8.2) g/dL Albumin (3.5-5.0) g/dL Influenza Type A RNA Not Detected (Not Detectd) Influenza Type B (PCR) Not Detected (Not Detectd) Critical Care Time Critical Care Time: Yes Total Critical Care Time: 35 Disposition Clinical Impression: Dyspnea, Tracheitis, Trachea, stenosis Disposition: ADMITTED IP TO THIS HOSP Condition: Stable Is patient prescribed a controlled substance at d/c from ED?: No Referrals: Gregoria Santillan MD [Primary Care Provider] - 1-2 days Decision to Admit Reason: Admit from EC Decision Date: 12/01/19 Decision Time: 16:35
[2019-12-01] MEDS ORDERED: IPRATROPIUM-ALBUTEROL 3 ML NEB INHALATION PRN (16:36)
[2019-12-01] MEDS ORDERED: MORPHINE SULFATE 2 MG/ML SYRINGE IM STA (16:42)
[2019-12-01] MEDS ORDERED: ALPRAZolam 0.25 MG TAB PO STA (16:42)
[2019-12-01] MEDS ORDERED: MORPHINE SULFATE 2 MG/ML SYRINGE IVP STA (16:53)
--- NOTE | 2019-12-01 18:55 | P.CNPUL ---
History of Present Illness Consult date: 12/01/19 Reason for consult: dyspnea, lung mass History of present illness: 69-year-old female patient with history of left pneumonectomy, , who was rece ntly in the hospital after being diagnosed having an endotracheal mass. 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 The patient underwent bronchoscopy. And due to concern of airway compromise, the patient got transferred to the [facility]. The patient underwent debulking endoscopically and the stent was placed. The patient was discharged home. The patient came into the emergency department today complaining of shortness of breath which she claims that this is not changed since the time of discharge. Denies having any chest pain. No fever or chills. Chest x-ray shows an endotr acheal stent in the upper trachea. She is post pneumonectomy and volume loss and tracheal shift is to the left. The right lung is essentially clear. Review of Systems Constitutional: Denies chills, Denies fever Eyes: denies blurred vision, denies pain Ears, nose, mouth and throat: Denies headache, Denies sore throat Cardiovascular: Reports decreased exercise tolerance, Reports dyspnea on exertion, Denies chest pain, endorses shortness of breath Respiratory: Denies cough denies endorses shortness of breath at all times. She is oxygen dependent 2 L per minute nasal cannula. She is post pneumonectomy on the left. Gastrointestinal: Denies abdominal pain, Denies diarrhea, Denies nausea, Denies vomiting Genitourinary: Denies dysuria, Denies hematuria Musculoskeletal: Denies myalgias Integumentary: Denies pruritus, Denies rash Neurological: Denies numbness, Denies weakness Psychiatric: Denies anxiety, Denies depression Endocrine: Denies fatigue, Denies weight change Past Medical History Past Medical History: Cancer, Hyperlipidemia, Hypertension, Osteoarthritis (OA) Additional Past Medical History / Comment(s): Squamous cell carcinoma of the lung post pneumonectomy, post chemoradiation therapy, FEV1 is in order of 49% of predicted, FVC is in order of 55% of predicted, diffusion capacity is elevated of 69% of predicted.. The patient underwent a robotic-assisted left pneumonectomy by Dr. Jimbo Quach back in 2018. History of Any Multi-Drug Resistant Organisms: None Reported Past Surgical History: Appendectomy, Cholecystectomy, Coronary Bypass/CABG, Heart Catheterization Additional Past Surgical History / Comment(s): lt lung removed ,triple bypass-1997 Past Anesthesia/Blood Transfusion Reactions: No Reported Reaction Past Psychological History: Anxiety, Depression Smoking Status: Former smoker Past Alcohol Use History: None Reported Past Drug Use History: None Reported - Past Family History Brother(s) Family Medical History: Deep Vein Thrombosis (DVT) Medications and Allergies Home Medications Medication Instructions Recorded Confirmed Type ALPRAZolam [Xanax] 0.5 mg PO HS PRN 02/09/18 12/01/19 History Ezetimibe [Zetia] 10 mg PO HS 02/09/18 12/01/19 History FLUoxetine HCL [PROzac] 20 mg PO DAILY 02/09/18 12/01/19 History Multivitamins, Thera [Multivitamin 1 tab PO DAILY 02/09/18 12/01/19 History (formulary)] Olmesartan/Hydrochlorothiazide 1 tab PO DAILY 02/09/18 12/01/19 History [Benicar Hct 40-12.5 mg Tablet] Ipratropium/Albuterol Sulfate 1 puff INHALATION RT-TID 03/10/18 12/01/19 History [Combivent Respimat Inhaler] Metoprolol Tartrate [Lopressor] 25 mg PO BID 03/10/18 12/01/19 History Atorvastatin [Lipitor] 10 mg PO HS 11/26/19 12/01/19 History Dexamethasone [Decadron] See Taper PO DIRECTED 12/01/19 12/01/19 History Fluconazole [Diflucan] 100 mg PO DAILY 12/01/19 12/01/19 History Fluticasone/Salmeterol [Advair Hfa 2 puff INHALATION RT-BID 12/01/19 12/01/19 History 230-21 Mcg Inhaler] Omeprazole 20 mg PO DAILY PRN 12/01/19 12/01/19 History Allergies Allergy/AdvReac Type Severity Reaction Status Date / Time adhesive tape Allergy blistered Verified 11/26/19 11:03 skin/paper tape is ok Physical Exam Vitals: Vital Signs Temp Pulse Resp BP Pulse Ox 12/01/19 17:24 96 24 137/77 97 12/01/19 16:04 98.2 F 112 H 22 127/77 95 12/01/19 15:39 105 H 12/01/19 15:20 103 H 12/01/19 15:08 24 12/01/19 14:54 97.9 F 113 H 24 127/101 97 Intake and Output 12/01/19 12/01/19 12/01/19 06:59 14:59 22:59 Other: Weight 100.244 kg GENERAL EXAM: Alert, pleasant, 69-year-old white female HEAD: Normocephalic/atraumatic. EYES: Normal reaction of pupils, equal size. Conjunctiva pink, sclera white. NOSE: Clear with pink turbinates. THROAT: No erythema or exudates. NECK: No masses, no JVD, no thyroid enlargement, no adenopathy. CHEST: the patient was found to have extensive rhonchi involving the entire right lung with audible rhonchi and gurgling heard. While she is talking or coughing . She is in mild degree of respiratory distress at this point in time. LUNGS: Absent lung sounds on the left, clear lung sounds on the right CVS: Regular rate and rhythm, normal S1 and S2, no gallops, no murmurs, no rubs ABDOMEN: Soft, nontender. No hepatosplenomegaly, normal bowel sounds, no guard ing or rigidity. EXTREMITIES: No clubbing, no edema, no cyanosis, 2+ pulses and upper and lower extremities. MUSCULOSKELETAL: Muscle strength and tone normal. SPINE: No scoliosis or deformity SKIN: No rashes CENTRAL NERVOUS SYSTEM: Alert and oriented -3. No focal deficits, tone is normal in all 4 extremities. PSYCHIATRIC: Alert and oriented -3. Appropriate affect. Intact judgment and insight. Results - Laboratory Findings CBC and BMP: 12/01/19 15:05 12/01/19 15:05 ABG WBC 8.5 k/uL (3.8-10.6) 12/01/19 15:05 RBC 3.94 m/uL (3.80-5.40) 12/01/19 15:05 Hgb 12.0 gm/dL (11.4-16.0) 12/01/19 15:05 Hct 37.5 % (34.0-46.0) 12/01/19 15:05 MCV 95.3 fL (80.0-100.0) 12/01/19 15:05 MCH 30.6 pg (25.0-35.0) 12/01/19 15:05 MCHC 32.1 g/dL (31.0-37.0) 12/01/19 15:05 RDW 13.0 % (11.5-15.5) 12/01/19 15:05 Plt Count 189 k/uL (150-450) 12/01/19 15:05 Neutrophils % 90 % 12/01/19 15:05 Lymphocytes % 4 % 12/01/19 15:05 Monocytes % 4 % 12/01/19 15:05 Eosinophils % 1 % 12/01/19 15:05 Basophils % 0 % 12/01/19 15:05 Neutrophils # 7.6 k/uL (1.3-7.7) 12/01/19 15:05 Lymphocytes # 0.4 k/uL (1.0-4.8) L 12/01/19 15:05 Monocytes # 0.4 k/uL (0-1.0) 12/01/19 15:05 Eosinophils # 0.1 k/uL (0-0.7) 12/01/19 15:05 Basophils # 0.0 k/uL (0-0.2) 12/01/19 15:05 PT 10.1 sec (9.0-12.0) 12/01/19 15:05 INR 1.0 (<1.2) 12/01/19 15:05 APTT 20.7 sec (22.0-30.0) L 12/01/19 15:05 Sodium 136 mmol/L (137-145) L 12/01/19 15:05 Potassium 4.5 mmol/L (3.5-5.1) 12/01/19 15:05 Chloride 100 mmol/L (98-107) 12/01/19 15:05 Carbon Dioxide 26 mmol/L (22-30) 12/01/19 15:05 Anion Gap 10 mmol/L 12/01/19 15:05 BUN 13 mg/dL (7-17) 12/01/19 15:05 Creatinine 0.55 mg/dL (0.52-1.04) 12/01/19 15:05 Est GFR (CKD-EPI)AfAm >90 (>60 ml/min/1.73 sqM) 12/01/19 15:05 Est GFR (CKD-EPI)NonAf >90 (>60 ml/min/1.73 sqM) 12/01/19 15:05 Glucose 142 mg/dL (74-99) H 12/01/19 15:05 Plasma Lactic Acid Panchito 2.3 mmol/L (0.7-2.0) H* 12/01/19 15:05 Calcium 9.0 mg/dL (8.4-10.2) 12/01/19 15:05 Magnesium 2.3 mg/dL (1.6-2.3) 12/01/19 15:05 Total Bilirubin 0.6 mg/dL (0.2-1.3) 12/01/19 15:05 AST 91 U/L (14-36) H 12/01/19 15:05 ALT 161 U/L (4-34) H 12/01/19 15:05 Alkaline Phosphatase 140 U/L (38-126) H 12/01/19 15:05 Troponin I 0.014 ng/mL (0.000-0.034) 12/01/19 15:05 NT-Pro-B Natriuret Pep 1860 pg/mL 12/01/19 15:05 Total Protein 6.5 g/dL (6.3-8.2) 12/01/19 15:05 Albumin 3.4 g/dL (3.5-5.0) L 12/01/19 15:05 Influenza Type A RNA Not Detected (Not Detectd) 12/01/19 15:05 Influenza Type B (PCR) Not Detected (Not Detectd) 12/01/19 15:05 PT/INR, D-dimer PT 10.1 sec (9.0-12.0) 12/01/19 15:05 INR 1.0 (<1.2) 12/01/19 15:05 Abnormal lab findings: Abnormal Labs 12/01/19 12/01/19 12/01/19 15:05 15:05 15:05 Lymphocytes # 0.4 L APTT 20.7 L Sodium 136 L Glucose 142 H Plasma Lactic Acid Panchito AST 91 H ALT 161 H Alkaline Phosphatase 140 H Albumin 3.4 L 12/01/19 15:05 Lymphocytes # APTT Sodium Glucose Plasma Lactic Acid Panchito 2.3 H* AST ALT Alkaline Phosphatase Albumin - Diagnostic Findings Chest x-ray: image reviewed Assessment and Plan Plan: 1 acute shortness of breath in a patient with known history of left pneumonectomy post endotendoscopic debulking of a tracheal tumor. Based on the chest x-ray findings, the stent seems to be in place. Nevertheless the patient has excessive congestion which obviously raises the concern for infection, versus aspiration or stent dislodgment. Note that the patient was started on radiation therapy and shortly received 2 sessions of radiation through radiation oncology. 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 4 History of squamous cell carcinoma of the left lung and previous pneumonectomy in February of 2018. 6 Benign essential hypertension. 7 chronic hypoxic respiratory failure maintained on oxygen 2 L per minute nasal cannula 8 chronic dyspnea 9 mild lactic acidosis plan recommended transferring this patient to [facility] to be reevaluated by the thoracic surgeon who underwent her debulking. The patient will likely need another endoscopic evaluation to evaluate for respiratory secretions, aspiration, pneumonia, stent positioning. Recommend transfer to, scans and was confused. A CAT scan of the chest may also be needed if not done in [facility]. I will suggest the workup being done in [place] and I discussed this with the family and the was agreeable to transfer.
[2019-12-01] MEDS ORDERED: LORazepam 2 MG/ML INJ IV STA (19:20)
[2019-12-01] MEDS ORDERED: IPRATROPIUM-ALBUTEROL 3 ML NEB INHALATION SCH (20:00)
[2019-12-02] MEDS ORDERED: DEXAMETHASONE SOD PHOSPHATE 4 MG/ML 1 ML VIAL IV SCH
[2019-12-02] MEDS ORDERED: CEFEPIME 2 GM in SODIUM CHLORIDE 0.9% 100 ML IVPB SCH ×2
[2019-12-02 00:04] VITALS: BP 150/70; PULSE 103; RESP 26; TEMP 97.2
[2019-12-02] MEDS ORDERED: LORazepam 2 MG/ML INJ IV STA (00:09)
== END 2019-12-02 00:42 | disposition short-term general hospital (02) ==
LOC: EC 14:50 → 3SCARD 16:36 → UNDOADMIN 16:36 → EC 12-02 00:42
DX: J04.10 Acute tracheitis without obstruction (principal); J39.8 Other specified diseases of upper respiratory tract; E78.5 Hyperlipidemia, unspecified; I10 Essential (primary) hypertension; M19.90 Unspecified osteoarthritis, unspecified site; F32.9 Major depressive disorder, single episode, unspecified; F41.9 Anxiety disorder, unspecified; Z87.891 Personal history of nicotine dependence; Z91.048 Other nonmedicinal substance allergy status; Z79.51 Long term (current) use of inhaled steroids; Z79.52 Long term (current) use of systemic steroids; Z79.82 Long term (current) use of aspirin; Z79.899 Other long term (current) drug therapy; Z85.118 Personal history of other malignant neoplasm of bronchus and lung; Z92.21 Personal history of antineoplastic chemotherapy; Z92.3 Personal history of irradiation; Z90.2 Acquired absence of lung [part of]; Z95.1 Presence of aortocoronary bypass graft; Z96.89 Presence of other specified functional implants; Z53.8 Procedure and treatment not carried out for other reasons
CPT/HCPCS: 36415; 94640 ×2; 93005; 83880; 80053; 83605; 83735; 84484; 85025; 85610; 85730; 87040; 87502; 71045; 99291; 96365; 96366; 96375 ×3; 96376 ×2; J2060 ×2; J1100 ×2; J0692; J2270